=== PATIENT | male | born 1995 | race Caucasian/White ===

== ENCOUNTER 2016-12-22 00:46 | Emergency (ER) | payer MEDICAID ==
[2016-12-22] MEDS ORDERED: PROVENTIL IH ONE ×3 (03:00→03:11)
[2016-12-22] MEDS ORDERED: MAGNESIUM SULFATE 2GM/50ML 2 GM/50 ML BAG IV ONE (03:11)
[2016-12-22] MEDS ORDERED: ATROVENT IH ONE (03:11)
--- NOTE | 2016-12-22 05:15 | Emergency Department Report ---
ED Asthma HPI - General Chief Complaint: Adult Asthma Stated Complaint: ASTHMA Time Seen by Provider: 12/22/16 03:03 Source: patient, EMS Mode of arrival: Stretcher Limitations: No Limitations - History of Present Illness Initial Comments: 21-year-old male with a past medical history of asthma and tuberculosis presents to the hospital complaints of wheezing and shortness of breath 1 week. Symptoms worse with exertion. O2 sat 93% upon arrival. Patient complains of dry cough. Denies fever or pain. No previous history of intubations. - Related Data Previous Rx's Medication Instructions Recorded Last Taken Type ALBUTEROL Inhaler [ProAir HFA 2 puff IH QID PRN #1 inhalation 12/22/16 Unknown Rx Inhaler] ALBUTEROL NEB's [Proventil 0.083% 2.5 mg IH TID PRN #1 box 12/22/16 Unknown Rx NEBS] Prednisone [predniSONE 10 mg 10 mg PO .TAPER #1 tab.ds.pk 12/22/16 Unknown Rx (6-Day Pack, 21 Tabs)] Allergies Allergy/AdvReac Type Severity Reaction Status Date / Time grape Allergy Rash Verified 02/15/15 15:07 pet dander Allergy Rash Uncoded 02/15/15 15:07 pollen Allergy Unknown Uncoded 02/15/15 15:07 shrimp Allergy Rash Uncoded 02/15/15 15:07 ED Review of Systems ROS: Stated complaint: ASTHMA Other details as noted in HPI Comment: All other systems reviewed and negative Other: Constitutional: No fevers chills Eyes: No eye pain visual changes ENT: No ear pain or throat pain Neck: Denies pain Respiratory: as per hpi Cardiovascular: Denies chest pain, palpitations, syncope GI: Denies abdominal pain, nausea, vomiting, diarrhea : Denies dysuria Musculoskeletal: Denies back pain Skin: Denies rash, lesions, erythema Neurologic: Denies headache, numbness, weakness Psychiatric: Denies suicidal ideation, hallucinations ED Past Medical Hx - Past Medical History Previous Medical History?: Yes Hx Psychiatric Treatment: No (Pt denies - no EMR in ED) Hx Asthma: Yes Hx Tuberculosis: Yes Additional medical history: eczema - Surgical History Past Surgical History?: No - Social History Smoking Status: Never Smoker Substance Use Type: None - Medications Home Medications: Home Medications Medication Instructions Recorded Confirmed Last Taken Type ALBUTEROL Inhaler [ProAir HFA 2 puff IH QID PRN #1 inhalation 12/22/16 Unknown Rx Inhaler] ALBUTEROL NEB's [Proventil 0.083% 2.5 mg IH TID PRN #1 box 12/22/16 Unknown Rx NEBS] Prednisone [predniSONE 10 mg 10 mg PO .TAPER #1 tab.ds.pk 12/22/16 Unknown Rx (6-Day Pack, 21 Tabs)] ED Physical Exam - General Limitations: No Limitations - Other Other exam information: General: No limitations, patient is alert in no acute distress Head exam: Atraumatic, normocephalic Eyes exam: Normal appearance ENT: Moist mucous membrane, normal oropharynx Neck exam: Normal inspection, full range of motion, no meningismus nontender Respiratory exam: Significant expiratory wheezing, tachypnea, accessory muscle use Cardiovascular: Tachycardic regular rhythm Abdomen: Soft, nondistended, and nontender, with normal bowel sounds, no rebound, or guarding Extremity: Full range of motion normal inspection no deformity Back: Normal Inspection, full range of motion, no tenderness Neurologic: Alert, oriented x3, cranial nerves intact, no motor or sensory deficit Psychiatric: normal affect, normal mood Skin: Warm, dry, intact ED Course Vital Signs 12/22/16 12/22/16 12/22/16 01:10 01:18 01:27 Temperature Pulse Rate 103 H 122 H Pulse Rate [ Anterior Bilateral] Respiratory 20 29 H 20 Rate Respiratory Rate [Anterior Bilateral] Blood Pressure 124/61 139/82 O2 Sat by Pulse 95 94 Oximetry 12/22/16 12/22/16 12/22/16 03:05 03:08 03:15 Temperature 99.2 F Pulse Rate Pulse Rate [ 122 H 130 H Anterior Bilateral] Respiratory Rate Respiratory 20 18 Rate [Anterior Bilateral] Blood Pressure O2 Sat by Pulse Oximetry 12/22/16 12/22/16 03:17 04:17 Temperature Pulse Rate Pulse Rate [ 126 H 130 H Anterior Bilateral] Respiratory Rate Respiratory 20 20 Rate [Anterior Bilateral] Blood Pressure O2 Sat by Pulse Oximetry - Reevaluation(s) Reevaluation #1: 12/22/16 05:13 Patient reports feeling much better after receiving albuterol 10, Atrovent one, Solu-Medrol 125, and magnesium. He does have some residual expiratory wheezing but states he feels TO go home. Patient ambulated around the ER ED Medical Decision Making - Radiology Data Radiology results: image reviewed (chest x-ray portable: No acute finding) - Medical Decision Making Patient ambulated around the ED and states he feels well enough to go home. Patient continues to have a heart rate in the 120s to 130s range. Pulse ox reads a saturation 94%. Patient still has expiratory wheezing. I tried to encourage patient to receive another treatment and stay longer and possible admission. Patient says that he feels well enough to go home and just needs his prescriptions. I will also put medication for allergies as requested. Patient encouraged to return immediately to the ED if symptoms worsen. Patient does not appear to be in any respiratory distress and did tolerate ambulation while in the ED department. - Differential Diagnosis asthma exacerbation, pneumonia, bronchitis Critical Care Time: No Critical care attestation.: If time is entered above; I have spent that time in minutes in the direct care of this critically ill patient, excluding procedure time. ED Disposition Clinical Impression: Asthma exacerbation Disposition: DISCHARGED TO HOME OR SELFCARE Is pt being admited?: No Condition: Stable Instructions: Asthma (ED) Additional Instructions: Take the medication as prescribed. Follow-up with doctor or clinic provided. Return if symptoms worsen. Prescriptions: ALBUTEROL Inhaler [ProAir HFA Inhaler] 2 puff IH QID PRN #1 inhalation PRN Reason: Shortness Of Breath ALBUTEROL NEB's [Proventil 0.083% NEBS] 2.5 mg IH TID PRN #1 box PRN Reason: Wheezing Prednisone [predniSONE 10 mg (6-Day Pack, 21 Tabs)] 10 mg PO .TAPER #1 tab.ds.pk Referrals: [facility] [Provider Group] - 2-3 Days PRIMARY CAREMD [Primary Care Provider] - 2-3 Days REJI DOWNS MD [Staff Physician] - 2-3 Days Time of Disposition: 05:34
[2016-12-22 05:33] VITALS: BP 139/82
--- NOTE | 2016-12-22 07:54 | XRay Report ---
Single view chest: Compared to 07/16/16. History: Cough and wheeze. Findings: Normal cardiomediastinal silhouette. Trachea is midline. No consolidation, pneumothorax or pleural effusion. Impression: No acute cardiopulmonary findings in the present study. A
== END 2016-12-22 05:58 | disposition home or self-care (01) ==
LOC: ED 00:46
DX: J45.901 Unspecified asthma with (acute) exacerbation (principal)
CPT/HCPCS: 71010; 94640; 94644; 96365; 96375; 99284; J2930; J3475

== ENCOUNTER 2016-12-25 20:22 | Emergency (ER) | payer MEDICAID ==
[2016-12-25] MEDS ORDERED: DUONEB 0.5 MG-3 MG/3 ML SOLN IH ONE ×2 (20:28→20:36)
[2016-12-25] MEDS ORDERED: MAGNESIUM SULFATE 2GM/50ML 2 GM/50 ML BAG IV ONE ×2 (20:30→20:32)
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
[2016-12-25 21:33] LABS: Basophils % (Auto) 0.1 % (0.0-1.8); Eosinophils % (Auto) 5.9 % (0.0-4.3); Hematocrit 46.7 % (35.5-45.6); Hemoglobin 15.7 gm/dl (11.8-15.2); Mean Corpuscular HGB Conc 34 % (32-34); Mean Corpuscular Hemoglobin 29 pg (28-32); Mean Corpuscular Volume 87 fl (84-94); Platelet Count 254 K/mm3 (140-440); Red Blood Count 5.41 M/mm3 (3.65-5.03); Red Cell Distribution Width 13.2 % (13.2-15.2); White Blood Count 11.1 K/mm3 (4.5-11.0)
--- NOTE | 2016-12-25 21:40 | Admit Criteria Form ---
Admission Criteria Documentation: ASTHMA Clinical Indications for Admission to Inpatient Care (Place 'X' for any and all applicable criteria): Admission is indicated for ANY ONE of the following (1)(2)(3)(4)(5): [ ]I. Absent or markedly diminished breath sounds (silent chest) [ ]II. Oxygen saturation < 92% [ ]III. PaCO2 = / > 42 mm Hg (5.6 kPa) [ ]IV. Peak expiratory flow rate < 40% of predicted or personal best after treatment. [ ]V. Peak expiratory flow rate < 33% of predicted or personal before after treatment [ ]. Change in mental status [ ]VII. Ventilatory support required [ ]VIII. PaO2 < 60 mm Hg (8.0 kPa) [ ]IX. Cyanosis [ ]X. Cardiac dysrhythmia (e.g., bradycardia) [ ]XI. Hemodynamic instability [ ]XII. Radiographic evidence of complication requiring inpatient treatment (e.g., pneumonia, pneumothorax) [X ]XIII. Inpatient admission required rather than observation care (also use Asthma: Observation Care guideline as appropriate) because of ANY ONE of the following: [ X]a) Respiratory finding that is severe or persistent (eg, dyspnea, tachypnea, accessory muscle use) [ ]b) Airflow measurements less than 60% of predicted or personal best that persist (e.g., over 24 hours) or worsen despite treatments [ ]c) Supplemental oxygen or respiratory treatments for over 24 hours that are performable only in acute inpatient setting [ ]d) Other condition, treatment or monitoring requiring inpatient admission. Extended stay beyond goal length of stay may be needed for (26)(27)(28): [ ]a) Severe respiratory failure (23) (29) (30) [ ]b) Secondary causes and complications (25) [ ]c) Status asthmaticus [ ]d) Chronic obstructive asthma [ ]e) Older patients (29) [ ]f) Slow resolution [ ]g) Clinically significant exacerbation of comorbidities (eg, ernesto. heart failure, atrial fibrillation) The original [facility] content created by [employer] has been revised. The portions of the content which have been revised are identified through the use of italic text or in bold, and [employer] has neither reviewed nor approved the modified material. All other unmodified content is copyright [employer] Please see references footnoted in the original [facility] edition 2016
[2016-12-25 21:51] LABS: Anion Gap 17 mmol/L; Blood Urea Nitrogen 6 mg/dL (9-20); Calcium 9.1 mg/dL (8.4-10.2); Carbon Dioxide 25 mmol/L (22-30); Chloride 99.3 mmol/L (98-107); Glucose 109 mg/dL (75-100); Magnesium 2.7 mg/dL (1.7-2.3); Potassium 3.8 mmol/L (3.6-5.0); Sodium 137 mmol/L (137-145)
[2016-12-25] MEDS ORDERED: XOPENEX IH ONE (22:24)
[2016-12-25] MEDS ORDERED: NACL 0.9% NEBU ONE (22:31)
[2016-12-26 01:19] LABS: Bilirubin,Urine NEG (Negative); Blood,Urine NEG (Negative); Ketones,Urine TR mg/dL (Negative); Leukocyte Esterase,Urine NEG (Negative); Mucus,Urine FEW /HPF; Nitrite,Urine NEG (Negative); Protein,Urine <15 mg/dL mg/dL (Negative); Urobilinogen,Urine < 2.0 mg/dL (<2.0); WBC,Urine < 1.0 /HPF (0.0-6.0)
[2016-12-26 01:37] VITALS: BP 103/71
--- NOTE | 2016-12-26 07:47 | XRay Report ---
CHEST ONE VIEW INDICATION: Shortness of breath. COMPARISON: 12/22/2016. FINDINGS: Portable, single, frontal chest radiograph demonstrates normal cardiomediastinal silhouette. Clear lungs. Unremarkable bones. Extrinsic EKG leads. CONCLUSION: No acute disease, stable. Thank you for the opportunity to participate in this patient's care.
== END 2016-12-26 01:51 | disposition home or self-care (01) ==
LOC: ED 20:22
DX: J45.901 Unspecified asthma with (acute) exacerbation (principal)
CPT/HCPCS: 36415; 71010; 80048; 81001; 83735; 83880; 84484; 85025; 85379; 87040; 93005; 93010; 94640; 96365; 96375; 99285; J2930; J3475

== ENCOUNTER 2017-02-05 11:00 | Emergency (ER) | payer MEDICAID ==
--- NOTE | 2017-02-05 11:20 | Emergency Department Report ---
ED Asthma HPI - General Chief Complaint: Adult Asthma Stated Complaint: DIFFICULTY BREATHING Time Seen by Provider: 02/05/17 11:18 Source: patient Mode of arrival: Ambulatory Limitations: No Limitations - History of Present Illness MD Complaint: "asthma attack", wheezing -: Gradual Asthma History: childhood onset Severity: moderate Context: recent URI, ran out of meds Associated Symptoms: dry cough Treatments Prior to Arrival: inhaled bronchodilator - Related Data Current Asthma Therapy: inhaled bronchodilator Previous Rx's Medication Instructions Recorded Last Taken Type ALBUTEROL Inhaler [ProAir HFA 1 puff IH QID #1 inha 02/05/17 Unknown Rx Inhaler] Prednisone [predniSONE 10 mg 10 mg PO .TAPER #1 tab.ds.pk 02/05/17 Unknown Rx (6-Day Pack, 21 Tabs)] Allergies Allergy/AdvReac Type Severity Reaction Status Date / Time grape Allergy Rash Verified 12/25/16 20:36 pet dander Allergy Rash Uncoded 12/25/16 20:36 pollen Allergy Unknown Uncoded 12/25/16 20:36 shrimp Allergy Rash Uncoded 12/25/16 20:36 ED Review of Systems ROS: Stated complaint: DIFFICULTY BREATHING Other details as noted in HPI Constitutional: denies: chills, fever Eyes: denies: eye pain, eye discharge, vision change ENT: denies: ear pain, throat pain Respiratory: denies: cough, shortness of breath, wheezing Cardiovascular: denies: chest pain, palpitations Endocrine: no symptoms reported Gastrointestinal: denies: abdominal pain, nausea, diarrhea Genitourinary: denies: urgency, dysuria Musculoskeletal: denies: back pain, joint swelling, arthralgia Skin: denies: rash, lesions Neurological: denies: headache, weakness, paresthesias Psychiatric: denies: anxiety, depression Hematological/Lymphatic: denies: easy bleeding, easy bruising ED Past Medical Hx - Past Medical History Hx Psychiatric Treatment: (Pt denies - no EMR in ED) Hx Asthma: Yes Hx Tuberculosis: Yes Additional medical history: eczema - Social History Smoking Status: Never Smoker Substance Use Type: None - Medications Home Medications: Home Medications Medication Instructions Recorded Confirmed Last Taken Type ALBUTEROL Inhaler [ProAir HFA 1 puff IH QID #1 inha 02/05/17 Unknown Rx Inhaler] Prednisone [predniSONE 10 mg 10 mg PO .TAPER #1 tab.ds.pk 02/05/17 Unknown Rx (6-Day Pack, 21 Tabs)] ED Physical Exam - General Limitations: No Limitations General appearance: alert, in no apparent distress - Head Head exam: Present: atraumatic, normocephalic - Eye Eye exam: Present: normal appearance - ENT ENT exam: Present: mucous membranes moist - Neck Neck exam: Present: normal inspection - Respiratory Respiratory exam: Present: wheezes. Absent: respiratory distress, rales, rhonchi, stridor, chest wall tenderness, accessory muscle use, decreased breath sounds, prolonged expiratory - Cardiovascular Cardiovascular Exam: Present: regular rate, normal rhythm. Absent: systolic murmur, diastolic murmur, rubs, gallop - GI/Abdominal GI/Abdominal exam: Present: soft, normal bowel sounds - Rectal Rectal exam: Present: deferred - Extremities Exam Extremities exam: Present: normal inspection - Back Exam Back exam: Present: normal inspection - Neurological Exam Neurological exam: Present: alert, oriented X3 - Psychiatric Psychiatric exam: Present: normal affect, normal mood - Skin Skin exam: Present: warm, dry, intact, normal color. Absent: rash ED Course Vital Signs 02/05/17 11:13 Respiratory 24 Rate O2 Sat by Pulse 92 Oximetry ED Medical Decision Making - Medical Decision Making patient been doing well , will dc and refill his albuterol and put him on prednisone, no need for admission. Critical care attestation.: If time is entered above; I have spent that time in minutes in the direct care of this critically ill patient, excluding procedure time. ED Disposition Clinical Impression: Asthma Disposition: DISCHARGED TO HOME OR SELFCARE Is pt being admited?: No Does the pt Need Aspirin: No Condition: Good Instructions: Asthma (ED) Prescriptions: ALBUTEROL Inhaler [ProAir HFA Inhaler] 1 puff IH QID #1 inha Prednisone [predniSONE 10 mg (6-Day Pack, 21 Tabs)] 10 mg PO .TAPER #1 tab.ds.pk Forms: Work/School Release Form(ED) Time of Disposition: 11:58
[2017-02-05] MEDS ORDERED: PROVENTIL IH ONE (11:54)
[2017-02-05] MEDS ORDERED: DELTASONE PO ONE (11:54)
[2017-02-05 12:47] VITALS: BP 115/78
== END 2017-02-05 12:47 | disposition home or self-care (01) ==
LOC: ED 11:00
DX: J45.909 Unspecified asthma, uncomplicated (principal); Z86.11 Personal history of tuberculosis
CPT/HCPCS: 94640; 99283; J7512

== ENCOUNTER 2017-08-30 01:09 | Emergency (ER) | payer MEDICAID ==
[2017-08-30] MEDS ORDERED: DELTASONE PO ONE (08:08)
--- NOTE | 2017-08-30 08:22 | Emergency Department Report ---
HPI - General Chief Complaint: Adult Asthma Time Seen by Provider: 08/30/17 07:45 - HPI HPI: Patient is a 22-year-old male with a history of childhood asthma who presents to ED complaining of evident asthma attack last night. Patient states he wasn' t doing anything or any physical activity when he started to get an asthma attack and called the ambulance. Patient states that he was given albuterol treatment in the EMS. Patient states he is out of his albuterol medication and has been out for the past several weeks. Patient denies fever/cough/runny nose/ sick contacts/trauma/shortness of breath/chest pain or any other problems. ED Past Medical Hx - Past Medical History Hx Psychiatric Treatment: (Pt denies - no EMR in ED) Hx Asthma: Yes Hx Tuberculosis: Yes Additional medical history: eczema - Surgical History Past Surgical History?: No - Social History Smoking Status: Never Smoker Substance Use Type: None - Medications Home Medications: Home Medications Medication Instructions Recorded Confirmed Last Taken Type ALBUTEROL Inhaler [ProAir HFA 1 puff IH QID #1 inha 08/30/17 Unknown Rx Inhaler] ALBUTEROL NEB's [Proventil 0.083% 2.5 mg IH PRN PRN #1 pack 08/30/17 Unknown Rx NEBS] Prednisone [predniSONE 10 mg 10 mg PO .TAPER #1 tab.ds.pk 08/30/17 Unknown Rx (6-Day Pack, 21 Tabs)] ED Review of Systems ROS: Stated complaint: CASS Other details as noted in HPI Constitutional: denies: chills, fever Eyes: denies: eye pain, eye discharge, vision change ENT: denies: ear pain, throat pain Respiratory: denies: cough, shortness of breath, wheezing Cardiovascular: denies: chest pain, palpitations Endocrine: no symptoms reported Gastrointestinal: denies: abdominal pain, nausea, vomiting, diarrhea Genitourinary: denies: urgency, dysuria Musculoskeletal: denies: back pain, joint swelling, arthralgia Skin: denies: rash, lesions Neurological: denies: headache, weakness, paresthesias Psychiatric: denies: anxiety, depression Hematological/Lymphatic: denies: easy bleeding, easy bruising Physical Exam - Physical Exam Vital Signs: Vital Signs 08/30/17 03:27 Temperature 98 F Pulse Rate 81 Respiratory 16 Rate Blood Pressure 124/81 O2 Sat by Pulse 100 Oximetry Physical Exam: GENERAL: Alert and oriented x3, no apparent respiratory distress, Normal Gait, atraumatic. There comfortably in ED. HEAD: Head is normocephalic and a-traumatic. EYES: Sclerae clear bilaterally, non-erythematous . Pupils are equal, round, and reactive to light and accommodation. EARS: symetrical, atraumatic, non tender, ear canal clear and moderate cerumen, tympanic membrance non inflamed. gross auditory nml bilaterally. NOSE: Nose symetrical, Nontender,Nares appeared normal. MOUTH:Mouth is well hydrated and without lesions. Tonsils nonerythematous or swollen, Uvula midline, Tongue not elevated. Mucous membranes are moist. Posterior pharynx clear, no exudate or lesions. Patent airways. NECK: Supple. Non edematous, No carotid bruits. No lymphadenopathy or thyromegaly. No C-spine tenderness LUNGS: Symetrical with respiration, No wheezing, no rales or crackles, CTAB. HEART: S1, S2 present, regular rate and rhythm without murmur, no rubs, no gallops. Non tender to palpation SKIN: Warm and dry, No lesions, No ulceration or induration present. ED Course Vital Signs 08/30/17 03:27 Temperature 98 F Pulse Rate 81 Respiratory 16 Rate Blood Pressure 124/81 O2 Sat by Pulse 100 Oximetry ED Medical Decision Making - Medical Decision Making 22-year-old male presents with asthma ED course: Patient was a normal respiratory distress during ED stay. he received prednisone 60 No wheezing on exam. So use of accessory muscles I discussed the patient will refill his medications. This patient to follow up with primary care physician in 3-5 days. I discussed the patient if he has any worsening symptoms or new symptoms to return to ED immediately Patient is in no respiratory distress, vital signs are normal. He is neurologically intact understands all instructions given. Critical care attestation.: If time is entered above; I have spent that time in minutes in the direct care of this critically ill patient, excluding procedure time. ED Disposition Clinical Impression: Asthma Qualifiers: Asthma severity: mild Asthma persistence: intermittent Asthma complication type : with acute exacerbation Qualified Code(s): J45.21 - Mild intermittent asthma with (acute) exacerbation Disposition: TO HOME OR SELFCARE Is pt being admited?: No Does the pt Need Aspirin: No Condition: Stable Instructions: Asthma (ED), Reactive Airways Disease (ED) Additional Instructions: Make sure to follow up with the primary care physician as discussed. Take all your medications as you've been prescribed. If you have any worsening symptoms or develop new symptoms please return to ED immediately. Prescriptions: ALBUTEROL Inhaler [ProAir HFA Inhaler] 1 puff IH QID #1 inha ALBUTEROL NEB's [Proventil 0.083% NEBS] 2.5 mg IH PRN PRN #1 pack PRN Reason: Wheezing Prednisone [predniSONE 10 mg (6-Day Pack, 21 Tabs)] 10 mg PO .TAPER #1 tab.ds.pk Referrals: PRIMARY CARE,MD [Primary Care Provider] - 3-5 Days [facility] [Outside] - 3-5 Days [facility] [place] [Outside] - 3-5 Days Forms: Work/School Release Form(ED) Time of Disposition: 08:28
[2017-08-30 08:25] VITALS: BP 113/72
== END 2017-08-30 08:50 | disposition home or self-care (01) ==
LOC: ED 01:09
DX: J45.21 Mild intermittent asthma with (acute) exacerbation (principal); Z86.11 Personal history of tuberculosis; Z91.013 Allergy to seafood; Z91.018 Allergy to other foods; Z91.09 Other allergy status, other than to drugs and biological substances
CPT/HCPCS: 99283; J7512

== ENCOUNTER 2017-09-23 04:16 | Emergency (ER) | payer MEDICAID ==
[2017-09-23 05:52] VITALS: BP 124/72
[2017-09-23] MEDS ORDERED: PROVENTIL IH ONE ×2 (06:06→06:07)
--- NOTE | 2017-09-23 06:35 | Emergency Department Report ---
ED Asthma HPI - General Chief Complaint: Adult Asthma Stated Complaint: ASTHMA Time Seen by Provider: 09/23/17 06:31 Source: patient, EMS Mode of arrival: Ambulatory Limitations: No Limitations - History of Present Illness Initial Comments: Patient is a 22-year-old male who is presenting with 3 days of increased asthma symptoms MD Complaint: "asthma attack", wheezing -: Gradual Asthma History: childhood onset Severity: mild Context: ran out of meds Associated Symptoms: dry cough. denies: productive cough, fever, chest pain, hemoptysis Treatments Prior to Arrival: inhaled bronchodilator (patient received a breathing treatment via EMS and states that he feels better now) - Related Data Current Asthma Therapy: none Previous Rx's Medication Instructions Recorded Last Taken Type ALBUTEROL Inhaler [ProAir HFA 1 puff IH QID #1 inha 08/30/17 Unknown Rx Inhaler] ALBUTEROL NEB's [Proventil 0.083% 2.5 mg IH PRN PRN #1 pack 08/30/17 Unknown Rx NEBS] Prednisone [predniSONE 10 mg 10 mg PO .TAPER #1 tab.ds.pk 08/30/17 Unknown Rx (6-Day Pack, 21 Tabs)] ALBUTEROL Inhaler [ProAir HFA 2 puff IH QID PRN #1 inhalation 09/23/17 Unknown Rx Inhaler] Allergies Allergy/AdvReac Type Severity Reaction Status Date / Time grape Allergy Rash Verified 12/25/16 20:36 pet dander Allergy Rash Uncoded 12/25/16 20:36 pollen Allergy Unknown Uncoded 12/25/16 20:36 shrimp Allergy Rash Uncoded 12/25/16 20:36 ED Review of Systems ROS: Stated complaint: ASTHMA Other details as noted in HPI Comment: All other systems reviewed and negative ED Past Medical Hx - Past Medical History Previous Medical History?: Yes Hx Psychiatric Treatment: (Pt denies - no EMR in ED) Hx Asthma: Yes Hx Tuberculosis: Yes Additional medical history: eczema - Social History Smoking Status: Never Smoker - Medications Home Medications: Home Medications Medication Instructions Recorded Confirmed Last Taken Type ALBUTEROL Inhaler [ProAir HFA 1 puff IH QID #1 inha 08/30/17 Unknown Rx Inhaler] ALBUTEROL NEB's [Proventil 0.083% 2.5 mg IH PRN PRN #1 pack 08/30/17 Unknown Rx NEBS] Prednisone [predniSONE 10 mg 10 mg PO .TAPER #1 tab.ds.pk 08/30/17 Unknown Rx (6-Day Pack, 21 Tabs)] ALBUTEROL Inhaler [ProAir HFA 2 puff IH QID PRN #1 inhalation 09/23/17 Unknown Rx Inhaler] ED Physical Exam - General Limitations: No Limitations General appearance: alert, in no apparent distress - Head Head exam: Present: atraumatic, normocephalic - Eye Eye exam: Present: normal appearance - ENT ENT exam: Present: mucous membranes moist - Neck Neck exam: Present: normal inspection - Respiratory Respiratory exam: Present: normal lung sounds bilaterally. Absent: respiratory distress - Cardiovascular Cardiovascular Exam: Present: regular rate, normal rhythm. Absent: systolic murmur, diastolic murmur, rubs, gallop - GI/Abdominal GI/Abdominal exam: Present: soft, normal bowel sounds - Rectal Rectal exam: Present: deferred - Extremities Exam Extremities exam: Present: normal inspection - Back Exam Back exam: Present: normal inspection - Neurological Exam Neurological exam: Present: alert, oriented X3 - Psychiatric Psychiatric exam: Present: normal affect, normal mood - Skin Skin exam: Present: warm, dry, intact, normal color. Absent: rash ED Course Vital Signs 09/23/17 05:46 Temperature 98.7 F Pulse Rate 77 Respiratory 20 Rate Blood Pressure 124/72 O2 Sat by Pulse 98 Oximetry ED Medical Decision Making - Medical Decision Making Albuterol inhaler will be refilled the patient will be discharged home Critical care attestation.: If time is entered above; I have spent that time in minutes in the direct care of this critically ill patient, excluding procedure time. ED Disposition Clinical Impression: Asthma Disposition: DC-01 TO HOME OR SELFCARE Is pt being admited?: No Does the pt Need Aspirin: No Condition: Good Instructions: Asthma (ED) Prescriptions: ALBUTEROL Inhaler [ProAir HFA Inhaler] 2 puff IH QID PRN #1 inhalation PRN Reason: Shortness Of Breath
== END 2017-09-23 07:04 | disposition home or self-care (01) ==
LOC: ED 04:16
DX: J45.909 Unspecified asthma, uncomplicated (principal); Z91.013 Allergy to seafood; Z91.048 Other nonmedicinal substance allergy status; Z91.018 Allergy to other foods; Z86.11 Personal history of tuberculosis
CPT/HCPCS: 94640

== ENCOUNTER 2017-10-08 01:34 | Emergency (ER) | payer MEDICAID ==
--- NOTE | 2017-10-08 11:37 | Emergency Department Report ---
ED Recheck HPI - General Chief Complaint: Adult Asthma Stated Complaint: ASTHMA Time Seen by Provider: 10/08/17 11:02 Source: patient Mode of arrival: Stretcher Limitations: No Limitations - History of Present Illness Initial Comments: This is a 22-year-old male nontoxic, well nourished in appearance, no acute signs of distress presents to the ED with c/o of "asthma medication refill". Patient denies any symptoms. Patient stated he ran out of his Proair inhaler and proventil. Patient denies any shortness of breathe, chest pain, wheezing, breathing, cough, rhinorrhea, sore throat, fever, chills, nausea vomiting. Patient stays asymptomatic just needs medication refill. Patient denies any drug allergies. Past medical history includes asthma eczema and cervical os. MD Complaint: medication refill request Returns Today for: request for prescription Symptoms Since Prior Visit: no new symptoms, improved Associated Symptoms: none. denies: fever, chills, chest pain, shortness of breath, rash, malaise, nasuea, abdominal pain - Related Data Previous Rx's Medication Instructions Recorded Last Taken Type ALBUTEROL Inhaler [ProAir HFA 1 puff IH QID #1 inha 08/30/17 Unknown Rx Inhaler] ALBUTEROL NEB's [Proventil 0.083% 2.5 mg IH PRN PRN #1 pack 08/30/17 Unknown Rx NEBS] Prednisone [predniSONE 10 mg 10 mg PO .TAPER #1 tab.ds.pk 08/30/17 Unknown Rx (6-Day Pack, 21 Tabs)] ALBUTEROL Inhaler [ProAir HFA 2 puff IH QID PRN #1 inhalation 09/23/17 Unknown Rx Inhaler] ALBUTEROL Inhaler [ProAir HFA 2 puff IH QID PRN #1 inhalation 10/08/17 Unknown Rx Inhaler] ALBUTEROL NEB's [Proventil 0.083% 2.5 mg IH PRN PRN 30 Days neb 10/08/17 Unknown Rx NEBS] Allergies Allergy/AdvReac Type Severity Reaction Status Date / Time grape Allergy Rash Verified 12/25/16 20:36 pet dander Allergy Rash Uncoded 12/25/16 20:36 pollen Allergy Unknown Uncoded 12/25/16 20:36 shrimp Allergy Rash Uncoded 12/25/16 20:36 ED Review of Systems ROS: Stated complaint: ASTHMA Other details as noted in HPI Constitutional: denies: chills, fever Eyes: denies: eye pain, eye discharge, vision change ENT: denies: ear pain, throat pain Respiratory: denies: cough, shortness of breath, wheezing Cardiovascular: denies: chest pain, palpitations Endocrine: no symptoms reported Gastrointestinal: denies: abdominal pain, nausea, diarrhea Genitourinary: denies: urgency, dysuria Musculoskeletal: denies: back pain, joint swelling, arthralgia Skin: denies: rash, lesions Neurological: denies: headache, weakness, paresthesias Psychiatric: denies: anxiety, depression Hematological/Lymphatic: denies: easy bleeding, easy bruising ED Past Medical Hx - Past Medical History Hx Psychiatric Treatment: (Pt denies - no EMR in ED) Hx Asthma: Yes Hx Tuberculosis: Yes Additional medical history: eczema - Surgical History Past Surgical History?: No - Social History Smoking Status: Never Smoker Substance Use Type: None - Medications Home Medications: Home Medications Medication Instructions Recorded Confirmed Last Taken Type ALBUTEROL Inhaler [ProAir HFA 1 puff IH QID #1 inha 08/30/17 Unknown Rx Inhaler] ALBUTEROL NEB's [Proventil 0.083% 2.5 mg IH PRN PRN #1 pack 08/30/17 Unknown Rx NEBS] Prednisone [predniSONE 10 mg 10 mg PO .TAPER #1 tab.ds.pk 08/30/17 Unknown Rx (6-Day Pack, 21 Tabs)] ALBUTEROL Inhaler [ProAir HFA 2 puff IH QID PRN #1 inhalation 09/23/17 Unknown Rx Inhaler] ALBUTEROL Inhaler [ProAir HFA 2 puff IH QID PRN #1 inhalation 10/08/17 Unknown Rx Inhaler] ALBUTEROL NEB's [Proventil 0.083% 2.5 mg IH PRN PRN 30 Days neb 10/08/17 Unknown Rx NEBS] ED Physical Exam - General Limitations: No Limitations General appearance: alert, in no apparent distress - Head Head exam: Present: atraumatic, normocephalic, normal inspection - Eye Eye exam: Present: normal appearance, PERRL, EOMI. Absent: scleral icterus, conjunctival injection, nystagmus, periorbital swelling, periorbital tenderness Pupils: Present: normal accommodation - ENT ENT exam: Present: normal exam, normal orophraynx, mucous membranes moist, TM's normal bilaterally, normal external ear exam - Neck Neck exam: Present: normal inspection, full ROM. Absent: tenderness, meningismus, lymphadenopathy, thyromegaly - Respiratory Respiratory exam: Present: normal lung sounds bilaterally. Absent: respiratory distress, wheezes, rales, rhonchi, stridor, chest wall tenderness, accessory muscle use, decreased breath sounds, prolonged expiratory - Cardiovascular Cardiovascular Exam: Present: regular rate, normal rhythm, normal heart sounds. Absent: irregular rhythm, systolic murmur, diastolic murmur, rubs, gallop - GI/Abdominal GI/Abdominal exam: Present: soft, normal bowel sounds - Rectal Rectal exam: Present: deferred - Extremities Exam Extremities exam: Present: normal inspection - Back Exam Back exam: Present: normal inspection - Neurological Exam Neurological exam: Present: alert, oriented X3 - Psychiatric Psychiatric exam: Present: normal affect, normal mood - Skin Skin exam: Present: warm, dry, intact, normal color. Absent: rash ED Course Vital Signs 10/08/17 10/08/17 01:51 10:44 Temperature 98 F Pulse Rate 85 75 Respiratory 16 16 Rate Blood Pressure 127/74 Blood Pressure 124/80 [Right] O2 Sat by Pulse 100 99 Oximetry - Reevaluation(s) Reevaluation #1: 10/08/17 11:38 Patient is speaking in full sentences with no signs of distress noted. Critical care attestation.: If time is entered above; I have spent that time in minutes in the direct care of this critically ill patient, excluding procedure time. ED Disposition Clinical Impression: Medication refill Asthma Qualifiers: Asthma severity: mild Asthma persistence: unspecified Asthma complication type : unspecified Qualified Code(s): J45.998 - Other asthma Disposition: -01 TO HOME OR SELFCARE Is pt being admited?: No Does the pt Need Aspirin: No Condition: Stable Instructions: Asthma (ED) Additional Instructions: Follow-up with a primary care doctor in 3-5 days or if symptoms worsen and continue return to emergency room as soon as possible. Prescriptions: ALBUTEROL Inhaler [ProAir HFA Inhaler] 2 puff IH QID PRN #1 inhalation PRN Reason: Shortness Of Breath ALBUTEROL NEB's [Proventil 0.083% NEBS] 2.5 mg IH PRN PRN 30 Days neb PRN Reason: Wheezing Referrals: BRETT CORNELIUS MD [Primary Care Provider] - 3-5 Days EUNICE SANCHEZ MD [Staff Physician] - 3-5 Days PRIMARY CARE, [Referring] - 3-5 Days [facility] [place] [Outside] - 3-5 Days [facility] [Outside] - 3-5 Days
[2017-10-08 13:01] VITALS: BP 120/70
== END 2017-10-08 13:00 | disposition home or self-care (01) ==
LOC: ED 01:34
DX: J45.998 Other asthma (principal); Z91.013 Allergy to seafood; Z91.018 Allergy to other foods; Z86.11 Personal history of tuberculosis; Z88.8 Allergy status to other drugs, medicaments and biological substances
CPT/HCPCS: 99283

== ENCOUNTER 2017-11-24 20:03 | Emergency (ER) | payer MEDICAID ==
[2017-11-24 20:08] VITALS: BP 118/78
--- NOTE | 2017-11-24 20:44 | Emergency Department Report ---
Blank Doc - Documentation Documentation: 22-year-old male states right knee pain after twisting the knee and falling today. Stated he heard a crack in his the area. Has been able to ambulate since the injury. No swelling, no redness, Exam showed mild tenderness medial knee.
--- NOTE | 2017-11-24 21:23 | Emergency Department Report ---
HPI - General Chief Complaint: Extremity Injury, Lower - HPI HPI: 22-year-old male states right knee pain after twisting the knee and falling today. Stated he heard a crack in his the area. Has been able to ambulate since the injury. No swelling, no redness, ED Past Medical Hx - Past Medical History Hx Hypertension: No Hx CVA: No Hx Psychiatric Treatment: (Pt denies - no EMR in ED) Hx Asthma: Yes Hx Tuberculosis: Yes Additional medical history: eczema - Social History Smoking Status: Never Smoker Substance Use Type: None - Medications Home Medications: Home Medications Medication Instructions Recorded Confirmed Last Taken Type ALBUTEROL Inhaler [ProAir HFA 1 puff IH QID #1 inha 08/30/17 Unknown Rx Inhaler] ALBUTEROL NEB's [Proventil 0.083% 2.5 mg IH PRN PRN #1 pack 08/30/17 Unknown Rx NEBS] Prednisone [predniSONE 10 mg 10 mg PO .TAPER #1 tab.ds.pk 08/30/17 Unknown Rx (6-Day Pack, 21 Tabs)] ALBUTEROL Inhaler [ProAir HFA 2 puff IH QID PRN #1 inhalation 09/23/17 Unknown Rx Inhaler] ALBUTEROL Inhaler [ProAir HFA 2 puff IH QID PRN #1 inhalation 10/08/17 Unknown Rx Inhaler] ALBUTEROL NEB's [Proventil 0.083% 2.5 mg IH PRN PRN 30 Days neb 10/08/17 Unknown Rx NEBS] Ibuprofen [Motrin] 800 mg PO Q8HR PRN #20 tablet 11/24/17 Unknown Rx ED Review of Systems ROS: Stated complaint: RIGHT KNEE PAIN Other details as noted in HPI Comment: All other systems reviewed and negative Genitourinary: as per HPI Musculoskeletal: joint swelling, other (knee pain) Neurological: denies: numbness, paresthesias Physical Exam - Physical Exam Vital Signs: Vital Signs 11/24/17 20:05 Temperature 98 F Pulse Rate 86 Respiratory 18 Rate Blood Pressure 118/78 O2 Sat by Pulse 100 Oximetry Physical Exam: - Physical Exam Physical Exam: - General Limitations: No Limitations General appearance: alert, in no apparent distress, obese - Head Head exam: Present: atraumatic, normocephalic - Eye Eye exam: Present: normal appearance - ENT ENT exam: Present: mucous membranes moist - Neck Neck exam: Present: normal inspection - Respiratory Respiratory exam: Present: normal lung sounds bilaterally. Absent: respiratory distress - Cardiovascular Cardiovascular Exam: Present: normal rhythm, tachycardia. Absent: systolic murmur, diastolic murmur, rubs, gallop - GI/Abdominal GI/Abdominal exam: Present: soft, normal bowel sounds - Extremities Exam Extremities exam: Present: Right knee tenderness to palpation, mild swelling - Back Exam Back exam: Present: normal inspection - Neurological Exam Neurological exam: Present: alert, oriented X3 - Psychiatric Psychiatric exam: normal affect and mood - Skin Skin exam: Present: warm, dry, intact, normal color. Absent: rash ED Course Vital Signs 11/24/17 20:05 Temperature 98 F Pulse Rate 86 Respiratory 18 Rate Blood Pressure 118/78 O2 Sat by Pulse 100 Oximetry Critical care attestation.: If time is entered above; I have spent that time in minutes in the direct care of this critically ill patient, excluding procedure time. ED Disposition Clinical Impression: Right knee sprain Qualifiers: Encounter type: initial encounter Involved ligament of knee: other ligament Qualified Code(s): S83.8X1A - Sprain of other specified parts of right knee, initial encounter Disposition: DC-01 TO HOME OR SELFCARE Is pt being admited?: No Does the pt Need Aspirin: No Condition: Stable Instructions: Knee Sprain (ED) Prescriptions: Ibuprofen [Motrin] 800 mg PO Q8HR PRN #20 tablet PRN Reason: Pain Referrals: ANTON LOPEZ MD [Staff Physician] - 3-5 Days
--- NOTE | 2017-11-24 22:03 | XRay Report ---
FINAL REPORT EXAM: XR KNEE 3V RT HISTORY: RT KNEE PAIN TECHNIQUE: AP, oblique, and lateral views of the right knee PRIORS: None. FINDINGS: No acute fracture or dislocation is seen. The soft tissues are unremarkable with no evidence for suprapatellar joint effusion. Joint spaces are maintained and bony mineralization is normal. IMPRESSION: Negative views of the right knee.
== END 2017-11-24 21:27 | disposition home or self-care (01) ==
LOC: ED 20:03
DX: S83.8X1A Sprain of other specified parts of right knee, initial encounter (principal); W18.30XA Fall on same level, unspecified, initial encounter; Y93.89 Activity, other specified; Y92.89 Other specified places as the place of occurrence of the external cause; Y99.8 Other external cause status
CPT/HCPCS: 99283

== ENCOUNTER 2017-12-24 03:56 | Emergency (ER) | payer MEDICAID ==
[2017-12-24] MEDS ORDERED: PROVENTIL IH ONE (04:25)
[2017-12-24] MEDS ORDERED: DELTASONE PO ONE (05:04)
[2017-12-24 05:08] VITALS: BP 118/76
[2017-12-24] MEDS ORDERED: DUONEB *Not for PRN Use IH ONE ×2 (07:39→07:40)
--- NOTE | 2017-12-24 07:44 | Emergency Department Report ---
ED Asthma HPI - General Chief Complaint: Adult Asthma Stated Complaint: CASS Time Seen by Provider: 12/24/17 07:39 Source: patient Mode of arrival: Stretcher Limitations: No Limitations - History of Present Illness Initial Comments: 22-year-old male comes in reporting he ran out of his asthma medicine and he has been having difficulty breathing since about 3 AM. Patient denies any cough and denies any fever chills no nausea no vomiting no URI symptoms. Patient has a history of asthma. It appears the patient has been on Proventil in the past. Patient has no known drug allergies multiple food and dander allergies. Onset/Timin -: hour(s) Time: 03:00 Asthma History: history of prior ED visit Severity: moderate Context: ran out of meds Associated Symptoms: none. denies: productive cough, dry cough, fever, chest pain - Related Data Current Asthma Therapy: inhaled bronchodilator Previous Rx's Medication Instructions Recorded Last Taken Type ALBUTEROL Inhaler [ProAir HFA 1 puff IH QID #1 inha 08/30/17 Unknown Rx Inhaler] ALBUTEROL NEB's [Proventil 0.083% 2.5 mg IH PRN PRN #1 pack 08/30/17 Unknown Rx NEBS] ALBUTEROL Inhaler [ProAir HFA 2 puff IH QID PRN #1 inhalation 09/23/17 Unknown Rx Inhaler] ALBUTEROL NEB's [Proventil 0.083% 2.5 mg IH PRN PRN 30 Days neb 10/08/17 Unknown Rx NEBS] Ibuprofen [Motrin] 800 mg PO Q8HR PRN #20 tablet 11/24/17 Unknown Rx ALBUTEROL Inhaler [ProAir HFA 2 puff IH QID PRN #1 inhalation 12/24/17 Unknown Rx Inhaler] Prednisone [predniSONE 10 mg 10 mg PO .TAPER #1 tab.ds.pk 12/24/17 Unknown Rx (6-Day Pack, 21 Tabs)] Allergies Allergy/AdvReac Type Severity Reaction Status Date / Time grape Allergy Rash Verified 12/25/16 20:36 pet dander Allergy Rash Uncoded 12/25/16 20:36 pollen Allergy Unknown Uncoded 12/25/16 20:36 shrimp Allergy Rash Uncoded 12/25/16 20:36 ED Review of Systems ROS: Stated complaint: CASS Other details as noted in HPI Constitutional: denies: chills, fever Eyes: denies: eye pain, eye discharge, vision change ENT: denies: ear pain, throat pain Respiratory: shortness of breath. denies: cough Cardiovascular: denies: chest pain, palpitations Endocrine: no symptoms reported Gastrointestinal: denies: abdominal pain, nausea, diarrhea Genitourinary: denies: urgency, dysuria Musculoskeletal: denies: back pain, joint swelling, arthralgia Skin: denies: rash, lesions Neurological: denies: headache, weakness, paresthesias Psychiatric: denies: anxiety, depression Hematological/Lymphatic: denies: easy bleeding, easy bruising ED Past Medical Hx - Past Medical History Hx Hypertension: No Hx CVA: No Hx Psychiatric Treatment: (Pt denies - no EMR in ED) Hx Asthma: Yes Hx Tuberculosis: Yes Additional medical history: eczema - Social History Smoking Status: Never Smoker Substance Use Type: None - Medications Home Medications: Home Medications Medication Instructions Recorded Confirmed Last Taken Type ALBUTEROL Inhaler [ProAir HFA 1 puff IH QID #1 inha 08/30/17 Unknown Rx Inhaler] ALBUTEROL NEB's [Proventil 0.083% 2.5 mg IH PRN PRN #1 pack 08/30/17 Unknown Rx NEBS] ALBUTEROL Inhaler [ProAir HFA 2 puff IH QID PRN #1 inhalation 09/23/17 Unknown Rx Inhaler] ALBUTEROL NEB's [Proventil 0.083% 2.5 mg IH PRN PRN 30 Days neb 10/08/17 Unknown Rx NEBS] Ibuprofen [Motrin] 800 mg PO Q8HR PRN #20 tablet 11/24/17 Unknown Rx ALBUTEROL Inhaler [ProAir HFA 2 puff IH QID PRN #1 inhalation 12/24/17 Unknown Rx Inhaler] Prednisone [predniSONE 10 mg 10 mg PO .TAPER #1 tab.ds.pk 12/24/17 Unknown Rx (6-Day Pack, 21 Tabs)] ED Physical Exam - General Limitations: No Limitations General appearance: alert, in no apparent distress - Head Head exam: Present: atraumatic, normocephalic - Eye Eye exam: Present: normal appearance - ENT ENT exam: Present: mucous membranes moist - Neck Neck exam: Present: normal inspection - Respiratory Respiratory exam: Present: wheezes - Cardiovascular Cardiovascular Exam: Present: regular rate, normal rhythm. Absent: systolic murmur, diastolic murmur, rubs, gallop - GI/Abdominal GI/Abdominal exam: Present: soft, normal bowel sounds - Rectal Rectal exam: Present: deferred - Extremities Exam Extremities exam: Present: normal inspection - Back Exam Back exam: Present: normal inspection - Neurological Exam Neurological exam: Present: alert, oriented X3 - Psychiatric Psychiatric exam: Present: normal affect, normal mood - Skin Skin exam: Present: warm, dry, intact, normal color. Absent: rash ED Course Vital Signs 12/24/17 12/24/17 04:17 05:07 Temperature 97.9 F Pulse Rate 99 H 89 Respiratory 18 20 Rate Blood Pressure 123/74 Blood Pressure 118/76 [Left] O2 Sat by Pulse 96 99 Oximetry - Reevaluation(s) Reevaluation #1: 12/24/17 07:43 Patient reports he feels much better after having the prednisone in the nebulizer treatment that was started in triage. ED Medical Decision Making - Medical Decision Making Patient has been evaluated by this provider fast track. Patient is a known asthmatic. Does have some wheezing still after having a nebulizer treatment in triage. Discussed the patient we'll give him another treatment of a dual neb. This patient has no fever no cough he will not do chest x-ray at this time. We will discharge patient with a refill on his albuterol inhaler and a prescription for Medrol Dosepak. Patient verbalized understanding. Critical care attestation.: If time is entered above; I have spent that time in minutes in the direct care of this critically ill patient, excluding procedure time. ED Disposition Clinical Impression: Asthma Qualifiers: Asthma severity: mild Asthma persistence: unspecified Asthma complication type : unspecified Qualified Code(s): J45.998 - Other asthma Disposition: -01 TO HOME OR SELFCARE Is pt being admited?: No Does the pt Need Aspirin: No Condition: Stable Instructions: Asthma (ED) Additional Instructions: Use albuterol inhaler as prescribed. Follow up with her primary care provider if symptoms persist or gets worse. Prescriptions: ALBUTEROL Inhaler [ProAir HFA Inhaler] 2 puff IH QID PRN #1 inhalation PRN Reason: Shortness Of Breath Prednisone [predniSONE 10 mg (6-Day Pack, 21 Tabs)] 10 mg PO .TAPER #1 tab.ds.pk Referrals: BRETT CORNELIUS MD [Primary Care Provider] - 3-5 Days [facility] [Provider Group] - 3-5 Days Forms: Work/School Release Form(ED)
== END 2017-12-24 07:50 | disposition home or self-care (01) ==
LOC: ED 03:56
DX: J45.998 Other asthma (principal); Z86.11 Personal history of tuberculosis; Z91.018 Allergy to other foods; Z91.013 Allergy to seafood; Z91.09 Other allergy status, other than to drugs and biological substances
CPT/HCPCS: 94640; 99283; J7512

== ENCOUNTER 2018-01-03 07:36 | Emergency (ER) | payer MEDICAID ==
--- NOTE | 2018-01-03 08:03 | XRay Report ---
CHEST 2 VIEWS INDICATION: Shortness of breath. COMPARISON: 12/25/2016. FINDINGS: PA and lateral chest radiographs demonstrate normal cardiomediastinal silhouette. Clear lungs. Intact bones. CONCLUSION: No acute disease in the chest, stable. Thank you for the opportunity to participate in this patient's care.
--- NOTE | 2018-01-03 08:09 | Emergency Department Report ---
ED Shortness of Breath HPI - General Chief Complaint: Dyspnea/Respdistress Stated Complaint: CASS Time Seen by Provider: 01/03/18 07:49 Source: patient Mode of arrival: Stretcher Limitations: No Limitations - History of Present Illness Initial Comments: Patient is 22-year-old male that presents to emergency room for a syncopal episode secondary to an asthma attack. Patient brought via EMS. Patient states that per bystanders he was unconscious for approximately 30 minutes and was woken up with aggressive sternal rub and albuterol nebs by family. Patient states he felt short of breath and had difficulty breathing just prior to passing out. Patient states that he has had a cough recently and a possible URI. Patient states he is feeling better at this time but still feels a little tightness in his chest. Patient denies fever and chills. Patient denies diaphoresis. MD Complaint: shortness of breath, cough, chest pain, pain with inspiration -: Sudden Consistency: constant Improves With: oxygen, rest, bronchodilators, upright position Worsens With: lying flat Known History Of: asthma Context: recent URI Associated Symptoms: chest pain, pain with inspiration, cough, sputum production , syncope Treatments Prior to Arrival: oxygen, bronchodilator, other (site Medrol 125mg iv ) - Related Data Home Oxygen Therapy: No Previous Rx's Medication Instructions Recorded Last Taken Type ALBUTEROL Inhaler [ProAir HFA 1 puff IH QID #1 inha 08/30/17 Unknown Rx Inhaler] ALBUTEROL NEB's [Proventil 0.083% 2.5 mg IH PRN PRN #1 pack 08/30/17 Unknown Rx NEBS] ALBUTEROL NEB's [Proventil 0.083% 2.5 mg IH PRN PRN 30 Days neb 10/08/17 Unknown Rx NEBS] Ibuprofen [Motrin] 800 mg PO Q8HR PRN #20 tablet 11/24/17 Unknown Rx ALBUTEROL Inhaler [ProAir HFA 2 puff IH QID PRN #1 inhalation 12/24/17 Unknown Rx Inhaler] Prednisone [predniSONE 10 mg 10 mg PO .TAPER #1 tab.ds.pk 12/24/17 Unknown Rx (6-Day Pack, 21 Tabs)] ALBUTEROL Inhaler [ProAir HFA 2 puff IH QID PRN #1 inhalation 01/03/18 Unknown Rx Inhaler] Allergies Allergy/AdvReac Type Severity Reaction Status Date / Time grape Allergy Rash Verified 12/25/16 20:36 pet dander Allergy Rash Uncoded 12/25/16 20:36 pollen Allergy Unknown Uncoded 12/25/16 20:36 shrimp Allergy Rash Uncoded 12/25/16 20:36 ED Review of Systems ROS: Stated complaint: CASS Other details as noted in HPI Comment: All other systems reviewed and negative Constitutional: denies: chills, fever Eyes: denies: eye pain, eye discharge, vision change ENT: denies: ear pain, throat pain Respiratory: cough, shortness of breath, wheezing Cardiovascular: chest pain, palpitations, syncope Endocrine: no symptoms reported Gastrointestinal: denies: abdominal pain, nausea, diarrhea Genitourinary: denies: urgency, dysuria Musculoskeletal: denies: back pain, joint swelling, arthralgia Skin: denies: rash, lesions Neurological: denies: headache, weakness, paresthesias Psychiatric: denies: anxiety, depression Hematological/Lymphatic: denies: easy bleeding, easy bruising ED Past Medical Hx - Past Medical History Previous Medical History?: Yes Hx Hypertension: No Hx CVA: No Hx Psychiatric Treatment: (Pt denies - no EMR in ED) Hx Asthma: Yes Hx Tuberculosis: Yes Additional medical history: eczema - Surgical History Past Surgical History?: No - Family History Family history: hypertension - Social History Smoking Status: Never Smoker Substance Use Type: None - Medications Home Medications: Home Medications Medication Instructions Recorded Confirmed Last Taken Type ALBUTEROL Inhaler [ProAir HFA 1 puff IH QID #1 inha 08/30/17 Unknown Rx Inhaler] ALBUTEROL NEB's [Proventil 0.083% 2.5 mg IH PRN PRN #1 pack 08/30/17 Unknown Rx NEBS] ALBUTEROL NEB's [Proventil 0.083% 2.5 mg IH PRN PRN 30 Days neb 10/08/17 Unknown Rx NEBS] Ibuprofen [Motrin] 800 mg PO Q8HR PRN #20 tablet 11/24/17 Unknown Rx ALBUTEROL Inhaler [ProAir HFA 2 puff IH QID PRN #1 inhalation 12/24/17 Unknown Rx Inhaler] Prednisone [predniSONE 10 mg 10 mg PO .TAPER #1 tab.ds.pk 12/24/17 Unknown Rx (6-Day Pack, 21 Tabs)] ALBUTEROL Inhaler [ProAir HFA 2 puff IH QID PRN #1 inhalation 01/03/18 Unknown Rx Inhaler] ED Physical Exam - General Limitations: No Limitations General appearance: alert, in no apparent distress - Head Head exam: Present: atraumatic, normocephalic - Eye Eye exam: Present: normal appearance - ENT ENT exam: Present: mucous membranes moist - Neck Neck exam: Present: normal inspection - Respiratory Respiratory exam: Present: normal lung sounds bilaterally. Absent: respiratory distress - Cardiovascular Cardiovascular Exam: Present: regular rate, normal rhythm. Absent: systolic murmur, diastolic murmur, rubs, gallop - GI/Abdominal GI/Abdominal exam: Present: soft, normal bowel sounds - Rectal Rectal exam: Present: deferred - Extremities Exam Extremities exam: Present: normal inspection - Back Exam Back exam: Present: normal inspection - Neurological Exam Neurological exam: Present: alert, oriented X3 - Psychiatric Psychiatric exam: Present: normal affect, normal mood - Skin Skin exam: Present: warm, dry, intact, normal color. Absent: rash ED Course Vital Signs 01/03/18 01/03/18 01/03/18 07:40 08:18 10:30 Temperature 98.7 F 98.7 F Pulse Rate 111 H 105 H 90 Pulse Rate [ Anterior Bilateral Throughout] Respiratory 17 17 13 Rate Respiratory Rate [Anterior Bilateral Throughout] Blood Pressure 142/82 Blood Pressure 138/83 101/49 [Right] O2 Sat by Pulse 99 100 93 Oximetry 01/03/18 01/03/18 01/03/18 10:46 11:06 11:30 Temperature Pulse Rate 111 H Pulse Rate [ 105 H 94 H Anterior Bilateral Throughout] Respiratory 14 Rate Respiratory 18 18 Rate [Anterior Bilateral Throughout] Blood Pressure Blood Pressure 127/78 [Right] O2 Sat by Pulse Oximetry - Reevaluation(s) Reevaluation #1: Patient have respiratory distress and hypoxia as well as wheezing. Will treat accordingly. 01/03/18 10:39 01/03/18 10:42 Reevaluation #2: Lung sounds clear to auscultation. Patient appears to be in no acute distress. Discussed with patient plan of care to admit patient to hospital for observation. Patient states he does not want to be admitted and patient signed out AMA. Rest discussed with patient. Patient voiced understanding of risks of leaving AGAINST MEDICAL ADVICE. Patient no acute distress and A& O 4 01/03/18 12:20 Reevaluation #3: Discussed risk of patient leaving AMA from hospital. Patient voiced understanding. Patient asked for refill of his asthma inhaler albuterol. Even though patient is leaving AGAINST MEDICAL ADVICE, I will give patient a prescription for his albuterol. Patient also given strict ER precautions. 01/03/18 12:30 ED Medical Decision Making - Lab Data Result diagrams: 01/03/18 07:52 01/03/18 08:10 - EKG Data EKG shows normal: sinus rhythm, axis, intervals, QRS complexes, ST-T waves Rate: normal - EKG Data Interpretation: no acute changes - Radiology Data Radiology results: report reviewed No acute findings on chest x-ray - Medical Decision Making She is 22-year-old male that presents emergency room with a subsequent episode secondary to asthma attack. Patient signed out AMA Critical Care Time: Yes Critical care attestation.: If time is entered above; I have spent that time in minutes in the direct care of this critically ill patient, excluding procedure time. Critical Care Time: 35 minutes spent for critical care time ED Disposition Clinical Impression: Asthma, Hypoxia, Asthma attack, Syncopal episodes Disposition: DC-07 LEFT AGAINST MED ADVICE Is pt being admited?: No Does the pt Need Aspirin: No Condition: Stable Instructions: Asthma (ED), Syncope (ED) Additional Instructions: Patient follow up with primary care in an one to 2 days. Patient to follow up with kiln furniture saw tender in 3-5 days. Patient to return to ER if condition worsens. Patient take aspirin medications as directed Prescriptions: ALBUTEROL Inhaler [ProAir HFA Inhaler] 2 puff IH QID PRN #1 inhalation PRN Reason: Shortness Of Breath Time of Disposition: 12:23
[2018-01-03 08:11] LABS: Basophils % (Auto) 0.2 % (0.0-1.8); Eosinophils # (Auto) 0.7 K/mm3 (0.0-0.4); Eosinophils % (Auto) 5.8 % (0.0-4.3); Hematocrit 48.9 % (35.5-45.6); Hemoglobin 16.4 gm/dl (11.8-15.2); Lymphocytes # (Auto) 1.6 K/mm3 (1.2-5.4); Lymphocytes % (Auto) 12.2 % (13.4-35.0); Mean Corpuscular HGB Conc 34 % (32-34); Mean Corpuscular Hemoglobin 30 pg (28-32); Mean Corpuscular Volume 89 fl (84-94); Monocytes # (Auto) 0.8 K/mm3 (0.0-0.8); Platelet Count 302 K/mm3 (140-440); Red Blood Count 5.47 M/mm3 (3.65-5.03); Red Cell Distribution Width 13.4 % (13.2-15.2)
[2018-01-03 08:32] LABS: BUN/Creatinine Ratio 20; Blood Urea Nitrogen 14 mg/dL (9-20); Calcium 9.5 mg/dL (8.4-10.2); Hemolysis Index 13
[2018-01-03 08:34] LABS: Alanine Aminotransferase 24 units/L (7-56); Albumin 4.6 g/dL (3.9-5); BUN/Creatinine Ratio 20; Blood Urea Nitrogen 14 mg/dL (9-20); Calcium 9.9 mg/dL (8.4-10.2); Hemolysis Index 27
--- NOTE | 2018-01-03 08:36 | Cat Scan Report ---
CT HEAD WITHOUT CONTRAST INDICATION: Syncope. COMPARISON: None similar. FINDINGS: Noncontrast head CT demonstrates normal ventricles and sulci without acute or recent infarct, hemorrhage, mass effect or midline shift. No abnormal extra-axial fluid collections. Posterior fossa structures and basilar cisterns appear within normal limits. Symmetric imaged eye globes. Mild bilateral ethmoid and maxillary sinusitis. Clear remainder paranasal sinuses and mastoid air cells. Intact calvarium. Normal overlying scalp soft tissues. Few radiopaque dental material incidentally noted. CONCLUSION: No acute intracranial CT abnormality, as described. Thank you for the opportunity to participate in this patient's care.
[2018-01-03 09:15] LABS: Amphetamine Screen,Urine PRESUMPTIVE NEGATIVE; Benzodiazepines Screen,Urine PRESUMPTIVE NEGATIVE; Cannabinoid Screen,Urine PRESUMPTIVE NEGATIVE; Cocaine Screen,Urine PRESUMPTIVE NEGATIVE; Methadone Screen,Urine PRESUMPTIVE NEGATIVE; Opiate Screen,Urine PRESUMPTIVE NEGATIVE
[2018-01-03] MEDS ORDERED: DUONEB *Not for PRN Use IH ONE (10:39)
[2018-01-03] MEDS ORDERED: MAGNESIUM SULFATE 2GM/50ML 2 GM/50 ML BAG IV ONE (10:41)
[2018-01-03] MEDS ORDERED: ROCEPHIN/NS 1 GM/50 ML 1 GM/50 ML BAG IV ONE (11:00)
[2018-01-03] MEDS ORDERED: cefTRIAXone 1 GM in NACL 0.9% 20 ML IV ONE (11:00)
[2018-01-03 12:01] VITALS: BP 127/78
== END 2018-01-03 13:39 | disposition left against medical advice (07) ==
LOC: ED 07:36
DX: J45.909 Unspecified asthma, uncomplicated (principal); R09.02 Hypoxemia; R55 Syncope and collapse
CPT/HCPCS: 36415; 70450; 71046; 80048; 80053; 80307; 82550; 82553; 84484; 85025; 85379; 93005; 93010; 94640; 96365; 96375; 99285; J0696; J3475

== ENCOUNTER 2018-04-28 02:29 | Emergency (ER) | payer MEDICAID ==
[2018-04-28 05:50] VITALS: BP 116/76
--- NOTE | 2018-04-28 07:39 | Emergency Department Report ---
ED Back Pain/Injury HPI - General Chief Complaint: Back Pain/Injury Stated Complaint: BACK PAIN Time Seen by Provider: 04/28/18 07:06 Source: patient Mode of arrival: Ambulatory Limitations: No Limitations - History of Present Illness Initial Comments: This is a 23-year-old male who presents with mid back pain from a football related injuries yesterday. Patient states he was playing football with some friends yesterday around 1300 and got Ground and heard a pop when he hit the ground. Patient states shortly afterwards he started having some pain with movement. Patient reports pain is improved while supine. Patient reports pain as 5 out of 10 on pain scale and achy. Patient states he gets one Tylenol and pain did not improve. Patient denies loss of consciousness, numbness or tingling, chest pain, shortness of breath, deformity, and bruising. MD Complaint: back pain (mid-back pain) Onset/Timin -: days(s) Time: 13:00 Similar Symptoms Previously: No Place: street Radiation: none Severity: moderate Severity scale (0 -10): 5 Quality: aching Consistency: intermittent Improves With: none Worsens With: movement Associated Symptoms: denies: confusion, weakness, chest pain, numbness, difficulty walking, cough, difficulty urinating, diaphoresis, incontinence, fever/chills, constipation, headaches, abdominal pain, loss of appetite, malaise , nausea/vomiting, rash, seizure, shortness of breath, syncope Treatments Prior to Arrival: NSAIDS - Related Data Previous Rx's Medication Instructions Recorded Last Taken Type ALBUTEROL NEB's [Proventil 0.083% 2.5 mg IH PRN PRN #1 pack 08/30/17 Unknown Rx NEBS] ALBUTEROL NEB's [Proventil 0.083% 2.5 mg IH PRN PRN 30 Days neb 10/08/17 Unknown Rx NEBS] Ibuprofen [Motrin 800 MG tab] 800 mg PO Q8HR PRN #20 tablet 11/24/17 Unknown Rx ALBUTEROL Inhaler [ProAir HFA 2 puff IH QID PRN #1 inhalation 12/24/17 Unknown Rx Inhaler] ALBUTEROL Inhaler [ProAir HFA 2 puff IH QID PRN #1 inhalation 01/03/18 Unknown Rx Inhaler] ALBUTEROL Inhaler [ProAir HFA 2 puff IH QID PRN #1 pump 01/06/18 Unknown Rx Inhaler] Prednisone [predniSONE 5 mg (6-Day 5 mg PO .TAPER #1 tab.ds.pk 01/06/18 Unknown Rx Pack, 21 Tabs)] Cyclobenzaprine HCl [Flexeril 5 MG 5 mg PO TID PRN #15 tab 04/28/18 Unknown Rx TAB] Ibuprofen [Motrin 800 MG tab] 800 mg PO Q8HR PRN #15 tablet 04/28/18 Unknown Rx Allergies Allergy/AdvReac Type Severity Reaction Status Date / Time grape Allergy Rash Verified 12/25/16 20:36 pet dander Allergy Rash Uncoded 12/25/16 20:36 pollen Allergy Unknown Uncoded 12/25/16 20:36 shrimp Allergy Rash Uncoded 12/25/16 20:36 ED Review of Systems ROS: Stated complaint: BACK PAIN Other details as noted in HPI Constitutional: denies: chills, fever Respiratory: denies: cough, shortness of breath, wheezing Cardiovascular: denies: chest pain, palpitations Gastrointestinal: denies: abdominal pain, nausea, diarrhea Musculoskeletal: back pain (mid back pain). denies: joint swelling, arthralgia Skin: denies: rash, lesions Neurological: denies: headache, weakness, paresthesias Psychiatric: denies: anxiety, depression ED Past Medical Hx - Past Medical History eczema Family history: no significant family history ED Back Pain Physical Exam - Exam General: Vital signs noted. No distress. Alert and acting appropriately. Back/Abdomen: Yes Perilumbar Tenderness, No Abdominal Tenderness, No Perithoracic Tenderness, No Sacroiliac Tenderness, No Flank Tenderness, No Straight Leg Raise Pain Neuro: Yes Normal Sensation, Yes Normal DTR's, Yes Normal Gait, No Motor Weakness ED Course Vital Signs 04/28/18 05:45 Temperature 98.7 F Pulse Rate 65 Respiratory 16 Rate Blood Pressure 116/76 O2 Sat by Pulse 100 Oximetry Ed Back Pain Tests - Tests Tests: Normal X Rays ED Medical Decision Making - Radiology Data Radiology results: report reviewed, image reviewed EXAM: XR SPINE LUMBOSACRAL 2-3V HISTORY: lower back pain TECHNIQUE: Three views lumbar spine PRIORS: None. FINDINGS: Lumbar lordosis is intact. Vertebral body heights and intervertebral disc spaces are preserved. No listhesis, spondylolysis or other fracture. IMPRESSION: Unremarkable lumbar spine radiographs. - Medical Decision Making This is a 23-year-old male who presents with mid back pain from football injury yesterday. Patient was examined by me. Vitals are normal and patient is in no acute distress. Obtained a urinalysis L-spine and scan was dictated by radiologist and report an image review by myself. Unremarkable lumbar spine radiographs. Patient informed of results. Start ibuprofen and cyclobenzaprine for muscle strain. Plan discussed with patient to discharge home and treat outpatient. He agrees with ER plan. Patient discharged home in stable condition. Follow up with PCP in 2-3 days Critical care attestation.: If time is entered above; I have spent that time in minutes in the direct care of this critically ill patient, excluding procedure time. ED Disposition Clinical Impression: Back pain due to injury, Strain of muscle and tendon of back wall of thorax, initial encounter Disposition: TO HOME OR SELFCARE Is pt being admited?: No Does the pt Need Aspirin: No Condition: Stable Instructions: Muscle Strain (ED), Lumbar Radiculopathy (ED) Additional Instructions: Rest Use ice or heat on affected area for 20 minutes and off for 2 hours. Take pain medication as needed for pain. Don't drive or operate heavy machinery while taking muscle relaxers because they may cause drowsiness. Follow up with Primary Care Provider in 2-3 days. Prescriptions: Cyclobenzaprine HCl [Flexeril 5 MG TAB] 5 mg PO TID PRN #15 tab PRN Reason: Muscle Spasm Ibuprofen [Motrin 800 MG tab] 800 mg PO Q8HR PRN #15 tablet PRN Reason: Pain , Severe (7-10) Referrals: [facility] [place]Outside] - 3-5 Days [facility] [Outside] - 3-5 Days [facility] [Outside] - 3-5 Days Time of Disposition: 09:01 Print Language: ZIMBABWEAN
--- NOTE | 2018-04-28 08:40 | XRay Report ---
FINAL REPORT EXAM: XR SPINE LUMBOSACRAL 2-3V HISTORY: lower back pain TECHNIQUE: Three views lumbar spine PRIORS: None. FINDINGS: Lumbar lordosis is intact. Vertebral body heights and intervertebral disc spaces are preserved. No listhesis, spondylolysis or other fracture. IMPRESSION: Unremarkable lumbar spine radiographs.
== END 2018-04-28 09:09 | disposition home or self-care (01) ==
LOC: ED 02:29
DX: S29.012A Strain of muscle and tendon of back wall of thorax, initial encounter (principal); Z91.013 Allergy to seafood; Z91.018 Allergy to other foods; Z91.048 Other nonmedicinal substance allergy status; X58.XXXA Exposure to other specified factors, initial encounter; Y93.61 Activity, american tackle football; Y92.89 Other specified places as the place of occurrence of the external cause; Y99.8 Other external cause status
CPT/HCPCS: 72100; 99283

== ENCOUNTER 2019-06-24 19:37 | Emergency (ER) | payer MEDICAID, OTHER ==
--- NOTE | 2019-06-24 19:48 | Event Note ---
ED Screening Note Date of service: 06/24/19 Time: 19:47 ED Screening Note: 24 y o male presents to ED cc of asthma attack ran out of meds This initial assessment/diagnostic orders/clinical plan/treatment(s) is/are subject to change based on patients health status, clinical progression and re-assessment by fellow clinical providers in the ED. Further treatment and workup at subsequent clinical providers discretion. Patient/guardian urged not to elope from the ED as their condition may be serious if not clinically assessed and managed. Initial orders include: duoneb solumedrol Acc eval
[2019-06-24] MEDS ORDERED: IPRATROPIUM/ALBUTEROL SULFATE 3 ML AMPUL.NEB IH ONE (19:52)
[2019-06-24] MEDS ORDERED: IPRATROPIUM 0.02% NEBU 2.5 ML IH ONE (20:05)
[2019-06-24] MEDS ORDERED: ALBUTEROL 2.5 MG/3 ML NEBU IH ONE (20:05)
--- NOTE | 2019-06-24 21:15 | Emergency Department Report ---
ED Asthma HPI - General Chief Complaint: Dyspnea/Respdistress Stated Complaint: ASTHMA Time Seen by Provider: 06/24/19 19:47 Source: patient Mode of arrival: Ambulatory Limitations: Language Barrier - History of Present Illness Initial Comments: Patient is a 24-year-old male who presents to emergency room with complaints of an asthma exacerbation that occurred just prior to arrival. he states that he was inside [employer] and just began to feel shortness of breath and wheezing. Patient denies any fever, rhinorrhea, cough, recent illness, CP. He states that he uses albuterol nebulizer solution and an albuterol inhaler for his asthma. He states he has not had his asthma Medications in 6 months. He states that he has a history of eczema and typically uses hydrocortisone cream for his eczema but also is out of that as well. Patient states that he does have a primary care doctor. - Related Data Previous Rx's Medication Instructions Recorded Last Taken Type ALBUTEROL NEB's [Proventil 0.083% 2.5 mg IH PRN PRN #1 pack 08/30/17 Unknown Rx NEBS] ALBUTEROL NEB's [Proventil 0.083% 2.5 mg IH PRN PRN 30 Days neb 10/08/17 Unknown Rx NEBS] Ibuprofen [Motrin 800 MG tab] 800 mg PO Q8HR PRN #20 tablet 11/24/17 Unknown Rx ALBUTEROL Inhaler (OR & NICU) 2 puff IH QID PRN #1 inhalation 12/24/17 Unknown Rx [ProAir HFA Inhaler] ALBUTEROL Inhaler (OR & NICU) 2 puff IH QID PRN #1 inhalation 01/03/18 Unknown Rx [ProAir HFA Inhaler] ALBUTEROL Inhaler (OR & NICU) 2 puff IH QID PRN #1 pump 01/06/18 Unknown Rx [ProAir HFA Inhaler] Prednisone [predniSONE 5 mg (6-Day 5 mg PO .TAPER #1 tab.ds.pk 01/06/18 Unknown Rx Pack, 21 Tabs)] Cyclobenzaprine HCl [Flexeril 5 MG 5 mg PO TID PRN #15 tab 04/28/18 Unknown Rx TAB] Ibuprofen [Motrin 800 MG tab] 800 mg PO Q8HR PRN #15 tablet 04/28/18 Unknown Rx Albuterol Sulfate [Ventolin HFA] 2 puff IH Q4H PRN #1 hfa.aer.ad 08/17/18 Unknown Rx predniSONE [Deltasone] 3 tab PO QDAY 5 Days #15 tab 08/17/18 Unknown Rx ALBUTEROL Inhaler(NF) [VENTOLIN 1 puff IH Q4-6H PRN #1 inha 08/27/18 Unknown Rx Inhaler(NF)] Cyclobenzaprine [Flexeril] 10 mg PO QHS PRN #10 tablet 08/29/18 Unknown Rx Ibuprofen [Motrin] 600 mg PO Q8H PRN #20 tablet 08/29/18 Unknown Rx ALBUTEROL Inhaler (OR & NICU) 2 puff IH QID PRN #1 device 09/05/18 Unknown Rx [ProAir HFA Inhaler] ALBUTEROL Inhaler(NF) [VENTOLIN 2 puff IH Q4HR PRN #1 inha 09/12/18 Unknown Rx Inhaler(NF)] predniSONE [Deltasone] 50 mg PO QDAY #5 tab 09/12/18 Unknown Rx ALBUTEROL Inhaler (OR & NICU) 2 puff IH QID PRN #1 inhalation 06/24/19 Unknown Rx [ProAir HFA Inhaler] ALBUTEROL NEB's [Proventil 0.083% 2.5 mg IH TID PRN #1 box 06/24/19 Unknown Rx NEBS] Hydrocortisone [Hydrocortisone 1 applicatio TP BID #1 oint...g. 06/24/19 Unknown Rx 2.5% OINT] Allergies Allergy/AdvReac Type Severity Reaction Status Date / Time grape Allergy Rash Verified 08/29/18 18:22 pet dander Allergy Rash Uncoded 12/25/16 20:36 pollen Allergy Unknown Uncoded 12/25/16 20:36 shrimp Allergy Rash Uncoded 12/25/16 20:36 ED Review of Systems ROS: Stated complaint: ASTHMA Other details as noted in HPI Comment: All other systems reviewed and negative ED Past Medical Hx - Past Medical History Hx Hypertension: No Hx CVA: No Hx Psychiatric Treatment: (Pt denies - no EMR in ED) Hx Asthma: Yes Hx Tuberculosis: Yes Additional medical history: eczema - Social History Smoking Status: Never Smoker Substance Use Type: None - Medications Home Medications: Home Medications Medication Instructions Recorded Confirmed Last Taken Type ALBUTEROL NEB's [Proventil 0.083% 2.5 mg IH PRN PRN #1 pack 08/30/17 Unknown Rx NEBS] ALBUTEROL NEB's [Proventil 0.083% 2.5 mg IH PRN PRN 30 Days neb 10/08/17 Unknown Rx NEBS] Ibuprofen [Motrin 800 MG tab] 800 mg PO Q8HR PRN #20 tablet 11/24/17 Unknown Rx ALBUTEROL Inhaler (OR & NICU) 2 puff IH QID PRN #1 inhalation 12/24/17 Unknown Rx [ProAir HFA Inhaler] ALBUTEROL Inhaler (OR & NICU) 2 puff IH QID PRN #1 inhalation 01/03/18 Unknown Rx [ProAir HFA Inhaler] ALBUTEROL Inhaler (OR & NICU) 2 puff IH QID PRN #1 pump 01/06/18 Unknown Rx [ProAir HFA Inhaler] Prednisone [predniSONE 5 mg (6-Day 5 mg PO .TAPER #1 tab.ds.pk 01/06/18 Unknown Rx Pack, 21 Tabs)] Cyclobenzaprine HCl [Flexeril 5 MG 5 mg PO TID PRN #15 tab 04/28/18 Unknown Rx TAB] Ibuprofen [Motrin 800 MG tab] 800 mg PO Q8HR PRN #15 tablet 04/28/18 Unknown Rx Albuterol Sulfate [Ventolin HFA] 2 puff IH Q4H PRN #1 hfa.aer.ad 08/17/18 Unknown Rx predniSONE [Deltasone] 3 tab PO QDAY 5 Days #15 tab 08/17/18 Unknown Rx ALBUTEROL Inhaler(NF) [VENTOLIN 1 puff IH Q4-6H PRN #1 inha 08/27/18 Unknown Rx Inhaler(NF)] Cyclobenzaprine [Flexeril] 10 mg PO QHS PRN #10 tablet 08/29/18 Unknown Rx Ibuprofen [Motrin] 600 mg PO Q8H PRN #20 tablet 08/29/18 Unknown Rx ALBUTEROL Inhaler (OR & NICU) 2 puff IH QID PRN #1 device 09/05/18 Unknown Rx [ProAir HFA Inhaler] ALBUTEROL Inhaler(NF) [VENTOLIN 2 puff IH Q4HR PRN #1 inha 09/12/18 Unknown Rx Inhaler(NF)] predniSONE [Deltasone] 50 mg PO QDAY #5 tab 09/12/18 Unknown Rx ALBUTEROL Inhaler (OR & NICU) 2 puff IH QID PRN #1 inhalation 06/24/19 Unknown Rx [ProAir HFA Inhaler] ALBUTEROL NEB's [Proventil 0.083% 2.5 mg IH TID PRN #1 box 06/24/19 Unknown Rx NEBS] Hydrocortisone [Hydrocortisone 1 applicatio TP BID #1 oint...g. 06/24/19 Unknown Rx 2.5% OINT] ED Physical Exam - General Limitations: Language Barrier General appearance: alert, in no apparent distress - Head Head exam: Present: atraumatic, normocephalic - Eye Eye exam: Present: normal appearance - ENT ENT exam: Present: mucous membranes moist - Respiratory Respiratory exam: Present: normal lung sounds bilaterally. Absent: respiratory distress, rales, rhonchi, stridor, chest wall tenderness, accessory muscle use, decreased breath sounds, prolonged expiratory - Cardiovascular Cardiovascular Exam: Present: regular rate, normal rhythm, normal heart sounds. Absent: systolic murmur, diastolic murmur, rubs, gallop - Neurological Exam Neurological exam: Present: alert, oriented X3 - Psychiatric Psychiatric exam: Present: normal affect, normal mood - Skin Skin exam: Present: warm, dry, other (ezcema changes to the skin, no erythema, no drainage, no blistering, no skin denuding) ED Course Vital Signs 06/24/19 06/24/19 06/24/19 19:50 20:10 20:40 Temperature 98.8 F Pulse Rate 110 H Pulse Rate [ 111 H 120 H Bilateral Throughout] Respiratory 18 Rate Respiratory 24 24 Rate [Bilateral Throughout] Blood Pressure 125/72 Blood Pressure [Right] O2 Sat by Pulse 95 Oximetry 06/24/19 06/24/19 21:51 22:54 Temperature 98.3 F Pulse Rate 80 74 Pulse Rate [ Bilateral Throughout] Respiratory 16 20 Rate Respiratory Rate [Bilateral Throughout] Blood Pressure Blood Pressure 123/67 108/52 [Right] O2 Sat by Pulse 99 98 Oximetry ED Medical Decision Making - Radiology Data Radiology results: report reviewed CHEST 2 VIEWS INDICATION / CLINICAL INFORMATION: sob. COMPARISON: 09/12/18 FINDINGS: SUPPORT DEVICES: None. HEART / MEDIASTINUM: No significant abnormality. LUNGS / PLEURA: No significant pulmonary or pleural abnormality. No pneumothorax. ADDITIONAL FINDINGS: No significant additional findings. IMPRESSION: 1. No acute findings. No change. Signer Name: Willy Owens MD Signed: 06/24/2019 10:38 PM Workstation Name: [id number] Transcribed By: DT Dictated By: Nam Owens MD Electronically Authenticated By: Nam Owens MD Signed Date/Time: 06/24/19 5208 - Medical Decision Making Patient is a 24-year-old male who presents to emergency room with complaints of an asthma exacerbation that occurred just prior to arrival. he states that he was inside [employer] store and just began to feel shortness of breath and wheezing. Patient denies any fever, rhinorrhea, cough, recent illness, CP. He states that he uses albuterol nebulizer solution and an albuterol inhaler for his asthma. He states he has not had his asthma Medications in 6 months. He states that he has a history of eczema and typically uses hydrocortisone cream for his eczema but also is out of that as well. Patient states that he does have a primary care doctor. initial vitals with mild tachycardia which improved upon repeat. Patient given albuterol and Atrovent prior to my examination and wheezing has completely resolved and breath sounds are clear with good air movement. pt states he feels much better denies any SOB or wheezing. CXR with no acute process. Patient also given an injection dexamethasone. Will refill pat lachelle's albuterol nebulizer solution, inhaler, hydrocortisone cream for his eczema. discussed with pt to use medication as prescribed. Advised patient to please follow up with a primary care doctor in the next 2-3 days for his asthma management. Return to the emergency room for any new or worsening symptoms. Critical care attestation.: If time is entered above; I have spent that time in minutes in the direct care of this critically ill patient, excluding procedure time. ED Disposition Clinical Impression: Asthma Qualifiers: Asthma severity: unspecified severity Asthma persistence: unspecified Asthma complication type: with acute exacerbation Qualified Code(s): J45.901 - Unspecified asthma with (acute) exacerbation Disposition: TO HOME OR SELFCARE Is pt being admited?: No Does the pt Need Aspirin: No Condition: Stable Instructions: Asthma (ED) Additional Instructions: use medication as prescribed. please follow up with a primary care doctor in the next 2-3 days for asthma management. Return to the emergency room for any new or worsening symptoms. Prescriptions: Hydrocortisone [Hydrocortisone 2.5% OINT] 1 applicatio TP BID #1 oint...g. ALBUTEROL Inhaler (OR & NICU) [ProAir HFA Inhaler] 2 puff IH QID PRN #1 inhalation PRN Reason: Shortness Of Breath ALBUTEROL NEB's [Proventil 0.083% NEBS] 2.5 mg IH TID PRN #1 box PRN Reason: Wheezing Referrals: [facility] [Provider Group] - 2-3 Days Time of Disposition: 21:35 Print Language: FRENCH
[2019-06-24] MEDS ORDERED: dexAMETHasone 4 MG/ML VIAL IM ONE (21:18)
--- NOTE | 2019-06-24 22:42 | XRay Report ---
CHEST 2 VIEWS INDICATION / CLINICAL INFORMATION: sob. COMPARISON: 09/12/18 FINDINGS: SUPPORT DEVICES: None. HEART / MEDIASTINUM: No significant abnormality. LUNGS / PLEURA: No significant pulmonary or pleural abnormality. No pneumothorax. ADDITIONAL FINDINGS: No significant additional findings. IMPRESSION: 1. No acute findings. No change. Signer Name: Willy Owens MD Signed: 06/24/2019 10:38 PM Workstation Name: [id number]
[2019-06-24 22:55] VITALS: BP 108/52
== END 2019-06-24 23:00 | disposition home or self-care (01) ==
LOC: ED 19:37
DX: J45.901 Unspecified asthma with (acute) exacerbation (principal); Z91.018 Allergy to other foods; Z91.013 Allergy to seafood; Z79.899 Other long term (current) drug therapy
CPT/HCPCS: 71046; 94640; 96372; 99284; J1100; 94644

== ENCOUNTER 2019-07-04 15:17 | Emergency (ER) | payer MEDICAID, OTHER ==
[2019-07-04 15:28] VITALS: BP 117/71
--- NOTE | 2019-07-04 15:33 | Emergency Department Report ---
ED Rash HPI - HPI Chief Complaint: Skin Rash Stated Complaint: ALLERGIC REACTION Time Seen by Provider: 07/04/19 15:26 Duration: 1 Day Rash Symptoms: Yes Itching, No Facial Swelling Other History: 24 y/o male comes in for acute on chronic exzema flare up. Patient reports that he may have eating chocolate which is is allergic to. Patient reports rash is in the folds of his leg, arm, face and leg time 1 day. Patient reports that he is out of his medications. ED Review of Systems ROS: Stated complaint: ALLERGIC REACTION Other details as noted in HPI Comment: All other systems reviewed and negative ED Past Medical Hx - Past Medical History Previous Medical History?: Yes Hx Hypertension: No Hx CVA: No Hx Psychiatric Treatment: (Pt denies - no EMR in ED) Hx Asthma: Yes Hx Tuberculosis: Yes Additional medical history: eczema - Surgical History Past Surgical History?: No - Social History Smoking Status: Never Smoker Substance Use Type: None - Medications Home Medications: Home Medications Medication Instructions Recorded Confirmed Last Taken Type ALBUTEROL NEB's [Proventil 0.083% 2.5 mg IH PRN PRN #1 pack 08/30/17 Unknown Rx NEBS] ALBUTEROL NEB's [Proventil 0.083% 2.5 mg IH PRN PRN 30 Days neb 10/08/17 Unknown Rx NEBS] Ibuprofen [Motrin 800 MG tab] 800 mg PO Q8HR PRN #20 tablet 11/24/17 Unknown Rx ALBUTEROL Inhaler (OR & NICU) 2 puff IH QID PRN #1 inhalation 12/24/17 Unknown Rx [ProAir HFA Inhaler] ALBUTEROL Inhaler (OR & NICU) 2 puff IH QID PRN #1 inhalation 01/03/18 Unknown Rx [ProAir HFA Inhaler] ALBUTEROL Inhaler (OR & NICU) 2 puff IH QID PRN #1 pump 01/06/18 Unknown Rx [ProAir HFA Inhaler] Prednisone [predniSONE 5 mg (6-Day 5 mg PO .TAPER #1 tab.ds.pk 01/06/18 Unknown Rx Pack, 21 Tabs)] Cyclobenzaprine HCl [Flexeril 5 MG 5 mg PO TID PRN #15 tab 04/28/18 Unknown Rx TAB] Ibuprofen [Motrin 800 MG tab] 800 mg PO Q8HR PRN #15 tablet 04/28/18 Unknown Rx Albuterol Sulfate [Ventolin HFA] 2 puff IH Q4H PRN #1 hfa.aer.ad 08/17/18 Unknown Rx predniSONE [Deltasone] 3 tab PO QDAY 5 Days #15 tab 08/17/18 Unknown Rx ALBUTEROL Inhaler(NF) [VENTOLIN 1 puff IH Q4-6H PRN #1 inha 08/27/18 Unknown Rx Inhaler(NF)] Cyclobenzaprine [Flexeril] 10 mg PO QHS PRN #10 tablet 08/29/18 Unknown Rx Ibuprofen [Motrin] 600 mg PO Q8H PRN #20 tablet 08/29/18 Unknown Rx ALBUTEROL Inhaler (OR & NICU) 2 puff IH QID PRN #1 device 09/05/18 Unknown Rx [ProAir HFA Inhaler] ALBUTEROL Inhaler(NF) [VENTOLIN 2 puff IH Q4HR PRN #1 inha 09/12/18 Unknown Rx Inhaler(NF)] predniSONE [Deltasone] 50 mg PO QDAY #5 tab 09/12/18 Unknown Rx ALBUTEROL Inhaler (OR & NICU) 2 puff IH QID PRN #1 inhalation 06/24/19 Unknown Rx [ProAir HFA Inhaler] ALBUTEROL NEB's [Proventil 0.083% 2.5 mg IH TID PRN #1 box 06/24/19 Unknown Rx NEBS] Hydrocortisone [Hydrocortisone 1 applicatio TP BID #1 oint...g. 06/24/19 Unknown Rx 2.5% OINT] Triamcinolone Acetonide 1 applic TP BID PRN #45 oint...g. 07/04/19 Unknown Rx [Triamcinolone Acetonide Oint 0.5%] predniSONE [Deltasone] 10 mg PO QDAY #5 tab 07/04/19 Unknown Rx Rash Exam - Exam General: Vital signs noted. No distress. Alert and acting appropriately. HEENT: No Periorbital Edema, No Conjuctival Injection, No Chemosis, No Perioral Edema, No Tongue Edema, No Uvular Edema, No Compromised Airway, No Drooling Lungs: Yes Good Air Exchange Skin: Yes Maculopapular Rash ( dry scaly rash face neck leg. ) ED Course Vital Signs 07/04/19 15:26 Temperature 97.6 F Pulse Rate 89 Respiratory 18 Rate Blood Pressure 117/71 O2 Sat by Pulse 99 Oximetry ED Medical Decision Making - Medical Decision Making 24 y/o male comes in for acute on chronic exzema flare up. Patient reports that he may have eating chocolate which is is allergic to. Patient reports rash is in the folds of his leg, arm, face and leg time 1 day. Patient reports that he is out of his medications. Rx for triamcinolone and prednisone. Critical care attestation.: If time is entered above; I have spent that time in minutes in the direct care of this critically ill patient, excluding procedure time. ED Disposition Clinical Impression: Atopic eczema Disposition: DC- TO HOME OR SELFCARE Is pt being admited?: No Does the pt Need Aspirin: No Condition: Stable Instructions: Eczema (ED) Prescriptions: predniSONE [Deltasone] 10 mg PO QDAY #5 tab Triamcinolone Acetonide [Triamcinolone Acetonide Oint 0.5%] 1 applic TP BID PRN #45 oint...g. PRN Reason: Rash Referrals: MARISSA KAY MD [Staff Physician] - 3-5 Days
== END 2019-07-04 16:23 | disposition home or self-care (01) ==
LOC: ED 15:17
DX: L30.9 Dermatitis, unspecified (principal); J45.909 Unspecified asthma, uncomplicated; Z91.018 Allergy to other foods; Z91.013 Allergy to seafood; Z79.899 Other long term (current) drug therapy
CPT/HCPCS: 99283

== ENCOUNTER 2019-09-25 05:12 | Emergency (ER) | payer MEDICAID, OTHER ==
[2019-09-25 05:34] VITALS: BP 118/62
[2019-09-25] MEDS ORDERED: ALBUTEROL 2.5 MG/3 ML NEBU IH ONE (07:45)
[2019-09-25] MEDS ORDERED: dexAMETHasone 20 MG/5 ML VIAL IM ONE (07:45)
--- NOTE | 2019-09-25 08:38 | Emergency Department Report ---
ED Asthma HPI - General Chief Complaint: Adult Asthma Stated Complaint: CASS Time Seen by Provider: 09/25/19 07:44 Source: patient, EMS Mode of arrival: Ambulatory Limitations: No Limitations - History of Present Illness Initial Comments: 24-year-old male presents to the emergency room stating his asthma is flared up and his chest feels tight. Patient reports that he's been out of his albuterol medication for a few days. Patient states that his last prescription of albuterol was in August and has ran out. Patient reports is using his al buterol daily. Patient is followed by Dr. Fonseca at [facility] [place]. His next appointment is in September. Patient has no known drug allergies, past medical history of asthma in current medications are albuterol which is ran out of. MD Complaint: wheezing Onset/Timin -: days(s) Severity: mild Context: ran out of meds Associated Symptoms: other (chest tightness) - Related Data Previous Rx's Medication Instructions Recorded Last Taken Type ALBUTEROL NEB's [Proventil 0.083% 2.5 mg IH PRN PRN #1 pack 08/30/17 Unknown Rx NEBS] ALBUTEROL NEB's [Proventil 0.083% 2.5 mg IH PRN PRN 30 Days neb 10/08/17 Unknown Rx NEBS] Ibuprofen [Motrin 800 MG tab] 800 mg PO Q8HR PRN #20 tablet 11/24/17 Unknown Rx ALBUTEROL Inhaler (OR & NICU) 2 puff IH QID PRN #1 inhalation 12/24/17 Unknown Rx [ProAir HFA Inhaler] ALBUTEROL Inhaler (OR & NICU) 2 puff IH QID PRN #1 inhalation 01/03/18 Unknown Rx [ProAir HFA Inhaler] ALBUTEROL Inhaler (OR & NICU) 2 puff IH QID PRN #1 pump 01/06/18 Unknown Rx [ProAir HFA Inhaler] Prednisone [predniSONE 5 mg (6-Day 5 mg PO .TAPER #1 tab.ds.pk 01/06/18 Unknown Rx Pack, 21 Tabs)] Cyclobenzaprine HCl [Flexeril 5 MG 5 mg PO TID PRN #15 tab 04/28/18 Unknown Rx TAB] Ibuprofen [Motrin 800 MG tab] 800 mg PO Q8HR PRN #15 tablet 04/28/18 Unknown Rx Albuterol Sulfate [Ventolin HFA] 2 puff IH Q4H PRN #1 hfa.aer.ad 08/17/18 Unknown Rx predniSONE [Deltasone] 3 tab PO QDAY 5 Days #15 tab 08/17/18 Unknown Rx ALBUTEROL Inhaler(NF) [VENTOLIN 1 puff IH Q4-6H PRN #1 inha 08/27/18 Unknown Rx Inhaler(NF)] Cyclobenzaprine [Flexeril] 10 mg PO QHS PRN #10 tablet 08/29/18 Unknown Rx Ibuprofen [Motrin] 600 mg PO Q8H PRN #20 tablet 08/29/18 Unknown Rx ALBUTEROL Inhaler (OR & NICU) 2 puff IH QID PRN #1 device 09/05/18 Unknown Rx [ProAir HFA Inhaler] ALBUTEROL Inhaler(NF) [VENTOLIN 2 puff IH Q4HR PRN #1 inha 09/12/18 Unknown Rx Inhaler(NF)] predniSONE [Deltasone] 50 mg PO QDAY #5 tab 09/12/18 Unknown Rx ALBUTEROL NEB's [Proventil 0.083% 2.5 mg IH TID PRN #1 box 06/24/19 Unknown Rx NEBS] Hydrocortisone [Hydrocortisone 1 applicatio TP BID #1 oint...g. 06/24/19 Unknown Rx 2.5% OINT] Triamcinolone Acetonide 1 applic TP BID PRN #45 oint...g. 07/04/19 Unknown Rx [Triamcinolone Acetonide Oint 0.5%] predniSONE [Deltasone] 10 mg PO QDAY #5 tab 07/04/19 Unknown Rx ALBUTEROL Inhaler (OR & NICU) 2 puff IH QID PRN #1 inhalation 09/25/19 Unknown Rx [ProAir HFA Inhaler] Fluticasone/Salmeterol [Advair 1 puff IH BID #1 disk.w.dev 09/25/19 Unknown Rx Diskus 250-50 mcg] Allergies Allergy/AdvReac Type Severity Reaction Status Date / Time grape Allergy Rash Verified 08/29/18 18:22 pet dander Allergy Rash Uncoded 12/25/16 20:36 pollen Allergy Unknown Uncoded 12/25/16 20:36 shrimp Allergy Rash Uncoded 12/25/16 20:36 ED Review of Systems ROS: Stated complaint: CASS Other details as noted in HPI Comment: All other systems reviewed and negative ED Past Medical Hx - Past Medical History Previous Medical History?: Yes Hx Hypertension: No Hx CVA: No Hx Psychiatric Treatment: (Pt denies - no EMR in ED) Hx Asthma: Yes Hx Tuberculosis: Yes Additional medical history: eczema - Surgical History Past Surgical History?: No - Social History Smoking Status: Never Smoker Substance Use Type: None - Medications Home Medications: Home Medications Medication Instructions Recorded Confirmed Last Taken Type ALBUTEROL NEB's [Proventil 0.083% 2.5 mg IH PRN PRN #1 pack 08/30/17 Unknown Rx NEBS] ALBUTEROL NEB's [Proventil 0.083% 2.5 mg IH PRN PRN 30 Days neb 10/08/17 Unknown Rx NEBS] Ibuprofen [Motrin 800 MG tab] 800 mg PO Q8HR PRN #20 tablet 11/24/17 Unknown Rx ALBUTEROL Inhaler (OR & NICU) 2 puff IH QID PRN #1 inhalation 12/24/17 Unknown Rx [ProAir HFA Inhaler] ALBUTEROL Inhaler (OR & NICU) 2 puff IH QID PRN #1 inhalation 01/03/18 Unknown Rx [ProAir HFA Inhaler] ALBUTEROL Inhaler (OR & NICU) 2 puff IH QID PRN #1 pump 01/06/18 Unknown Rx [ProAir HFA Inhaler] Prednisone [predniSONE 5 mg (6-Day 5 mg PO .TAPER #1 tab.ds.pk 01/06/18 Unknown Rx Pack, 21 Tabs)] Cyclobenzaprine HCl [Flexeril 5 MG 5 mg PO TID PRN #15 tab 04/28/18 Unknown Rx TAB] Ibuprofen [Motrin 800 MG tab] 800 mg PO Q8HR PRN #15 tablet 04/28/18 Unknown Rx Albuterol Sulfate [Ventolin HFA] 2 puff IH Q4H PRN #1 hfa.aer.ad 08/17/18 Unknown Rx predniSONE [Deltasone] 3 tab PO QDAY 5 Days #15 tab 08/17/18 Unknown Rx ALBUTEROL Inhaler(NF) [VENTOLIN 1 puff IH Q4-6H PRN #1 inha 08/27/18 Unknown Rx Inhaler(NF)] Cyclobenzaprine [Flexeril] 10 mg PO QHS PRN #10 tablet 08/29/18 Unknown Rx Ibuprofen [Motrin] 600 mg PO Q8H PRN #20 tablet 08/29/18 Unknown Rx ALBUTEROL Inhaler (OR & NICU) 2 puff IH QID PRN #1 device 09/05/18 Unknown Rx [ProAir HFA Inhaler] ALBUTEROL Inhaler(NF) [VENTOLIN 2 puff IH Q4HR PRN #1 inha 09/12/18 Unknown Rx Inhaler(NF)] predniSONE [Deltasone] 50 mg PO QDAY #5 tab 09/12/18 Unknown Rx ALBUTEROL NEB's [Proventil 0.083% 2.5 mg IH TID PRN #1 box 06/24/19 Unknown Rx NEBS] Hydrocortisone [Hydrocortisone 1 applicatio TP BID #1 oint...g. 06/24/19 Unknown Rx 2.5% OINT] Triamcinolone Acetonide 1 applic TP BID PRN #45 oint...g. 07/04/19 Unknown Rx [Triamcinolone Acetonide Oint 0.5%] predniSONE [Deltasone] 10 mg PO QDAY #5 tab 07/04/19 Unknown Rx ALBUTEROL Inhaler (OR & NICU) 2 puff IH QID PRN #1 inhalation 09/25/19 Unknown Rx [ProAir HFA Inhaler] Fluticasone/Salmeterol [Advair 1 puff IH BID #1 disk.w.dev 09/25/19 Unknown Rx Diskus 250-50 mcg] ED Physical Exam - General Limitations: No Limitations General appearance: alert, in no apparent distress - Head Head exam: Present: atraumatic, normocephalic - Eye Eye exam: Present: normal appearance - ENT ENT exam: Present: mucous membranes moist - Neck Neck exam: Present: normal inspection, full ROM - Respiratory Respiratory exam: Present: wheezes, prolonged expiratory - Cardiovascular Cardiovascular Exam: Present: regular rate, normal rhythm. Absent: systolic murmur, diastolic murmur, rubs, gallop - GI/Abdominal GI/Abdominal exam: Present: soft, normal bowel sounds - Back Exam Back exam: Present: normal inspection - Neurological Exam Neurological exam: Present: alert, oriented X3, normal gait - Psychiatric Psychiatric exam: Present: normal affect, normal mood - Skin Skin exam: Present: warm, dry, intact, normal color. Absent: rash ED Course Vital Signs 09/25/19 09/25/19 05:29 09:17 Temperature 98.5 F Pulse Rate 81 Respiratory 18 18 Rate Blood Pressure 118/62 O2 Sat by Pulse 97 97 Oximetry - Reevaluation(s) Reevaluation #1: 09/25/19 09:22 Chest exam patient has improved. Still has a mild right expiratory wheeze. Patient given prednisone albuterol 5 mg. Patient will be discharged home in Advair and albuterol ED Medical Decision Making - Medical Decision Making 24-year-old male presents to the emergency room stating his asthma is flared up and his chest feels tight. Patient reports that he's been out of his albuterol medication for a few days. Patient states that his last prescription of albuterol was in August and has ran out. Patient reports is using his albuterol daily. Patient is followed by Dr. Fonseca at [facility] [place]. His next appointment is in September. Patient has no known drug allergies, past medical history of asthma in current medications are albuterol which is ran out of. Patient was given albuterol and prednisone. Chest exam patient has improved. Still has a mild right expiratory wheeze. Patient given prednisone albuterol 5 mg. Patient will be discharged home in Advair and albuterol Critical care attestation.: If time is entered above; I have spent that time in minutes in the direct care of this critically ill patient, excluding procedure time. ED Disposition Clinical Impression: Asthma Disposition: DC-01 TO HOME OR SELFCARE Is pt being admited?: No Does the pt Need Aspirin: No Condition: Stable Instructions: Asthma (ED) Additional Instructions: Use inhalers as prescribed. Follow up with Mr. Fonseca at [facility]. Prescriptions: Fluticasone/Salmeterol [Advair Diskus 250-50 mcg] 1 puff IH BID #1 disk.w.dev ALBUTEROL Inhaler (OR & NICU) [ProAir HFA Inhaler] 2 puff IH QID PRN #1 inhalation PRN Reason: Shortness Of Breath Referrals: PRIMARY CARE, [Primary Care Provider] - 3-5 Days JENNA FONSECA MD [Referring] - 3-5 Days
[2019-09-25] MEDS ORDERED: predniSONE 20 MG TAB PO ONE (08:45)
== END 2019-09-25 09:22 | disposition home or self-care (01) ==
LOC: ED 05:12
DX: J45.909 Unspecified asthma, uncomplicated (principal); Z98.890 Other specified postprocedural states; Z79.899 Other long term (current) drug therapy; Z91.018 Allergy to other foods; Z91.048 Other nonmedicinal substance allergy status; Z91.013 Allergy to seafood
CPT/HCPCS: 94640; 99283; J1100; J7512

== ENCOUNTER 2019-10-02 02:54 | Emergency (ER) | payer SELFPAY ==
[2019-10-02 03:37] VITALS: BP 107/63
[2019-10-02] MEDS ORDERED: IPRATROPIUM/ALBUTEROL SULFATE 3 ML AMPUL.NEB IH ONE (05:13)
[2019-10-02] MEDS ORDERED: ALBUTEROL 2.5 MG/3 ML NEBU IH ONE (05:13)
[2019-10-02] MEDS ORDERED: methylPREDNISolone Sod Succinate 125 MG/2 ML INJ IM ONE (05:13)
--- NOTE | 2019-10-02 05:37 | XRay Report ---
CHEST 2 VIEWS, 10/02/2019 5:26 AM INDICATION: Shortness of breath COMPARISON: Chest radiograph, 09/25/2019 FINDINGS: Support devices: None Heart: The cardiac silhouette is normal in size. Lungs/pleura: The lungs are mildly hyperinflated but appear clear of focal airspace disease or signif icant pleural effusion. Additional findings: Evaluation of bony structures demonstrates no evidence of acute bony abnormality . IMPRESSION: 1. No evidence of acute cardiopulmonary process. Signer Name: Rin Jiménez MD Signed: 10/02/2019 5:33 AM Workstation Name: [id number]
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
== END 2019-10-02 06:50 | disposition home or self-care (01) ==
LOC: ED 02:54
DX: J20.9 Acute bronchitis, unspecified (principal); J45.901 Unspecified asthma with (acute) exacerbation
CPT/HCPCS: 71046; 96372; 99284; J2930

== ENCOUNTER 2019-10-07 04:33 | Emergency (ER) | payer SELFPAY ==
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
--- NOTE | 2019-10-07 10:07 | XRay Report ---
CHEST 2 VIEWS INDICATION: dyspnea and cough. COMPARISON: 10/02/2019 FINDINGS: Support devices: None. Heart: Within normal limits. Pulmonary vasculature: Normal. Lungs/pleura: A new patchy right basal opacity on the frontal view. The lungs are otherwise clear. No pleural effusion. No pneumothorax. Additional findings: None. IMPRESSION: 1. Right lower lobe pneumonia without consolidation. Signer Name: Fortunato Melendrez MD Signed: 10/07/2019 10:02 AM Workstation Name: [id number]
[2019-10-07 10:52] VITALS: BP 111/70
== END 2019-10-07 10:54 | disposition home or self-care (01) ==
LOC: ED 04:33
DX: R07.89 Other chest pain (principal); J15.1 Pneumonia due to Pseudomonas; J45.909 Unspecified asthma, uncomplicated; Z79.899 Other long term (current) drug therapy; Z91.018 Allergy to other foods; Z91.013 Allergy to seafood; Z91.09 Other allergy status, other than to drugs and biological substances
CPT/HCPCS: 71046

== ENCOUNTER 2020-06-02 21:52 | Emergency (ER) | payer MEDICAID ==
[2020-06-02 23:53] VITALS: BP 140/86
[2020-06-03] MEDS ORDERED: IPRATROPIUM/ALBUTEROL SULFATE 3 ML AMPUL.NEB IH ONE (01:12)
[2020-06-03] MEDS ORDERED: dexAMETHasone 20 MG/5 ML VIAL IM ONE (01:12)
--- NOTE | 2020-06-03 02:04 | Emergency Department Report ---
- General Chief Complaint: Upper Respiratory Infection Stated Complaint: ASTHMA Source: patient Mode of arrival: Ambulatory Limitations: No Limitations - History of Present Illness Initial Comments: Patient is a 25-year-old male with a history of asthma and eczema who presents to the ED with acute exacerbation of his chronic eczema and shortness of breath with persistent dry cough for the last 2 hours. Patient states that his eczema has been worsening especially in the last 1 month [place] lot of insect bites and other plants that kept coming to contact with him and causing persistent exacerbations. Patient states that he was laying down in the house and the temperature was low and he started having shortness of breath. Patient states that he has not had any fever, chills, nausea, vomiting, chest pain, dizziness, syncope, sore throat, abdominal pain, diarrhea, syncope or palpitations. MD Complaint: cough, nasal congestion, other (diffuse itchy erythematous rashes, eczema flare) -: Sudden, hour(s) (2) Severity: moderate Severity scale (0 -10): 5 Quality: burning, aching Consistency: intermittent Improves With: nothing Worsens With: nothing Context: other (exposed to cold temperature) Associated Symptoms: denies other symptoms, rhinorrhea, nasal congestion, cough, shortness of breath, other (itchy rashes). denies: fever, chills, myalgias, diaphoresis, headache, sore throat, stiff neck, chest pain, abdominal pain, nausea, vomiting, diarrhea, dysuria, rash, confusion, weight loss, epistaxis, hoarseness, ear pain Treatments Prior to Arrival: none - Related Data Previous Rx's Medication Instructions Recorded Last Taken Type ALBUTEROL NEB's [Proventil 0.083% 2.5 mg IH PRN PRN #1 pack 08/30/17 Unknown Rx NEBS] ALBUTEROL NEB's [Proventil 0.083% 2.5 mg IH PRN PRN 30 Days neb 10/08/17 Unknown Rx NEBS] Ibuprofen [Motrin 800 MG tab] 800 mg PO Q8HR PRN #20 tablet 11/24/17 Unknown Rx Albuterol Mdi (or & Nicu Only) 2 puff IH QID PRN #1 inhalation 01/03/18 Unknown Rx [ProAir HFA Inhaler] Albuterol Mdi (or & Nicu Only) 2 puff IH QID PRN #1 pump 01/06/18 Unknown Rx [ProAir HFA Inhaler] Prednisone [predniSONE 5 mg (6-Day 5 mg PO .TAPER #1 tab.ds.pk 01/06/18 Unknown Rx Pack, 21 Tabs)] Cyclobenzaprine HCl [Flexeril 5 MG 5 mg PO TID PRN #15 tab 04/28/18 Unknown Rx TAB] Ibuprofen [Motrin 800 MG tab] 800 mg PO Q8HR PRN #15 tablet 04/28/18 Unknown Rx Albuterol Sulfate [Ventolin HFA] 2 puff IH Q4H PRN #1 hfa.aer.ad 08/17/18 Unknown Rx ALBUTEROL Inhaler(NF) [VENTOLIN 1 puff IH Q4-6H PRN #1 inha 08/27/18 Unknown Rx Inhaler(NF)] Cyclobenzaprine [Flexeril] 10 mg PO QHS PRN #10 tablet 08/29/18 Unknown Rx Ibuprofen [Motrin] 600 mg PO Q8H PRN #20 tablet 08/29/18 Unknown Rx Albuterol Mdi (or & Nicu Only) 2 puff IH QID PRN #1 device 09/05/18 Unknown Rx [ProAir HFA Inhaler] ALBUTEROL Inhaler(NF) [VENTOLIN 2 puff IH Q4HR PRN #1 inha 09/12/18 Unknown Rx Inhaler(NF)] predniSONE [Deltasone] 50 mg PO QDAY #5 tab 09/12/18 Unknown Rx ALBUTEROL NEB's [Proventil 0.083% 2.5 mg IH TID PRN #1 box 06/24/19 Unknown Rx NEBS] Hydrocortisone [Hydrocortisone 1 applicatio TP BID #1 oint...g. 06/24/19 Unknown Rx 2.5% OINT] Triamcinolone Acetonide 1 applic TP BID PRN #45 oint...g. 07/04/19 Unknown Rx [Triamcinolone Acetonide Oint 0.5%] predniSONE [Deltasone] 10 mg PO QDAY #5 tab 07/04/19 Unknown Rx Albuterol Mdi (or & Nicu Only) 2 puff IH QID PRN #1 inhalation 09/25/19 Unknown Rx [ProAir HFA Inhaler] Fluticasone/Salmeterol [Advair 1 puff IH BID #1 disk.w.dev 09/25/19 Unknown Rx Diskus 250-50 mcg] predniSONE [Deltasone] 40 mg PO QDAY #8 tablet 09/25/19 Unknown Rx Albuterol Mdi (or & Nicu Only) 2 puff IH QID PRN #1 inhalation 10/02/19 Unknown Rx [ProAir HFA Inhaler] Azithromycin [Zithromax Z-CELIA] 250 mg PO DAILY #6 tablet 10/02/19 Unknown Rx Benzonatate [Tessalon Perles] 100 mg PO Q8HR #30 capsule 10/02/19 Unknown Rx predniSONE [Deltasone] 3 tab PO QDAY 5 Days #15 tab 10/02/19 Unknown Rx Albuterol Mdi (or & Nicu Only) 2 puff IH QID PRN #8.5 gram 10/07/19 Unknown Rx [ProAir HFA Inhaler] levoFLOXacin [Levaquin TAB] 750 mg PO QDAY #7 tablet 10/07/19 Unknown Rx Albuterol Sulfate [Proventil Hfa] 1 - 2 puff IH Q6H PRN #1 hfa.aer.ad 06/03/20 Unknown Rx Triamcinolone Acetonide 1 applic TP BID #1 tube 06/03/20 Unknown Rx [Triamcinolone Acetonide Oint 0.5%] cephALEXin [Keflex] 500 mg PO Q6HR #40 capsule 06/03/20 Unknown Rx diphenhydrAMINE [Benadryl CAP] 25 mg PO Q6HR PRN #40 capsule 06/03/20 Unknown Rx predniSONE [Deltasone] 40 mg PO QDAY #14 tab 06/03/20 Unknown Rx Allergies Allergy/AdvReac Type Severity Reaction Status Date / Time grape Allergy Rash Verified 08/29/18 18:22 pet dander Allergy Rash Uncoded 12/25/16 20:36 pollen Allergy Unknown Uncoded 12/25/16 20:36 shrimp Allergy Rash Uncoded 12/25/16 20:36 ED Review of Systems ROS: Stated complaint: ASTHMA Other details as noted in HPI Constitutional: denies: chills, fever Eyes: denies: eye pain, eye discharge, vision change ENT: congestion. denies: ear pain, throat pain Respiratory: cough, shortness of breath, wheezing Cardiovascular: denies: chest pain, palpitations Endocrine: no symptoms reported Gastrointestinal: denies: abdominal pain, nausea, diarrhea Genitourinary: denies: urgency, dysuria Musculoskeletal: denies: back pain, joint swelling, arthralgia Skin: rash (Diffuse erythematous macular papular rashes with ulcerations), change in color, pruritus. denies: lesions Neurological: denies: headache, weakness, paresthesias Psychiatric: denies: anxiety, depression Hematological/Lymphatic: denies: easy bleeding, easy bruising ED Past Medical Hx - Past Medical History Hx Hypertension: No Hx CVA: No Hx Psychiatric Treatment: (Pt denies - no EMR in ED) Hx Asthma: Yes Hx Tuberculosis: Yes Additional medical history: eczema - Social History Smoking Status: Never Smoker Substance Use Type: None - Medications Home Medications: Home Medications Medication Instructions Recorded Confirmed Last Taken Type ALBUTEROL NEB's [Proventil 0.083% 2.5 mg IH PRN PRN #1 pack 08/30/17 Unknown Rx NEBS] ALBUTEROL NEB's [Proventil 0.083% 2.5 mg IH PRN PRN 30 Days neb 10/08/17 Unknown Rx NEBS] Ibuprofen [Motrin 800 MG tab] 800 mg PO Q8HR PRN #20 tablet 11/24/17 Unknown Rx Albuterol Mdi (or & Nicu Only) 2 puff IH QID PRN #1 inhalation 01/03/18 Unknown Rx [ProAir HFA Inhaler] Albuterol Mdi (or & Nicu Only) 2 puff IH QID PRN #1 pump 01/06/18 Unknown Rx [ProAir HFA Inhaler] Prednisone [predniSONE 5 mg (6-Day 5 mg PO .TAPER #1 tab.ds.pk 01/06/18 Unknown Rx Pack, 21 Tabs)] Cyclobenzaprine HCl [Flexeril 5 MG 5 mg PO TID PRN #15 tab 04/28/18 Unknown Rx TAB] Ibuprofen [Motrin 800 MG tab] 800 mg PO Q8HR PRN #15 tablet 04/28/18 Unknown Rx Albuterol Sulfate [Ventolin HFA] 2 puff IH Q4H PRN #1 hfa.aer.ad 08/17/18 Unkno wn Rx ALBUTEROL Inhaler(NF) [VENTOLIN 1 puff IH Q4-6H PRN #1 inha 08/27/18 Unknown Rx Inhaler(NF)] Cyclobenzaprine [Flexeril] 10 mg PO QHS PRN #10 tablet 08/29/18 Unknown Rx Ibuprofen [Motrin] 600 mg PO Q8H PRN #20 tablet 08/29/18 Unknown Rx Albuterol Mdi (or & Nicu Only) 2 puff IH QID PRN #1 device 09/05/18 Unknown Rx [ProAir HFA Inhaler] ALBUTEROL Inhaler(NF) [VENTOLIN 2 puff IH Q4HR PRN #1 inha 09/12/18 Unknown Rx Inhaler(NF)] predniSONE [Deltasone] 50 mg PO QDAY #5 tab 09/12/18 Unknown Rx ALBUTEROL NEB's [Proventil 0.083% 2.5 mg IH TID PRN #1 box 06/24/19 Unknown Rx NEBS] Hydrocortisone [Hydrocortisone 1 applicatio TP BID #1 oint...g. 06/24/19 Unknown Rx 2.5% OINT] Triamcinolone Acetonide 1 applic TP BID PRN #45 oint...g. 07/04/19 Unknown Rx [Triamcinolone Acetonide Oint 0.5%] predniSONE [Deltasone] 10 mg PO QDAY #5 tab 07/04/19 Unknown Rx Albuterol Mdi (or & Nicu Only) 2 puff IH QID PRN #1 inhalation 09/25/19 Unknown Rx [ProAir HFA Inhaler] Fluticasone/Salmeterol [Advair 1 puff IH BID #1 disk.w.dev 09/25/19 Unknown Rx Diskus 250-50 mcg] predniSONE [Deltasone] 40 mg PO QDAY #8 tablet 09/25/19 Unknown Rx Albuterol Mdi (or & Nicu Only) 2 puff IH QID PRN #1 inhalation 10/02/19 Unknown Rx [ProAir HFA Inhaler] Azithromycin [Zithromax Z-CELIA] 250 mg PO DAILY #6 tablet 10/02/19 Unknown Rx Benzonatate [Tessalon Perles] 100 mg PO Q8HR #30 capsule 10/02/19 Unknown Rx predniSONE [Deltasone] 3 tab PO QDAY 5 Days #15 tab 10/02/19 Unknown Rx Albuterol Mdi (or & Nicu Only) 2 puff IH QID PRN #8.5 gram 10/07/19 Unknown Rx [ProAir HFA Inhaler] levoFLOXacin [Levaquin TAB] 750 mg PO QDAY #7 tablet 10/07/19 Unknown Rx Albuterol Sulfate [Proventil Hfa] 1 - 2 puff IH Q6H PRN #1 hfa.aer.ad 06/03/20 Unknown Rx Triamcinolone Acetonide 1 applic TP BID #1 tube 06/03/20 Unknown Rx [Triamcinolone Acetonide Oint 0.5%] cephALEXin [Keflex] 500 mg PO Q6HR #40 capsule 06/03/20 Unknown Rx diphenhydrAMINE [Benadryl CAP] 25 mg PO Q6HR PRN #40 capsule 06/03/20 Unknown Rx predniSONE [Deltasone] 40 mg PO QDAY #14 tab 06/03/20 Unknown Rx ED Physical Exam - General Limitations: No Limitations General appearance: alert, in no apparent distress - Head Head exam: Present: atraumatic, normocephalic, normal inspection - Eye Eye exam: Present: normal appearance, PERRL, EOMI Pupils: Present: normal accommodation - ENT ENT exam: Present: normal exam, normal orophraynx, mucous membranes moist, TM's normal bilaterally, normal external ear exam - Neck Neck exam: Present: normal inspection, full ROM - Respiratory Respiratory exam: Present: wheezes (Mildly diffuse coarse wheezes throughout). Absent: respiratory distress, rales, rhonchi, stridor, chest wall tenderness, accessory muscle use, decreased breath sounds, prolonged expiratory - Cardiovascular Cardiovascular Exam: Present: regular rate, normal rhythm, normal heart sounds. Absent: systolic murmur, diastolic murmur, rubs, gallop - GI/Abdominal GI/Abdominal exam: Present: soft, normal bowel sounds. Absent: tenderness, hyperactive bowel sounds - Extremities Exam Extremities exam: Present: normal inspection, full ROM, normal capillary refill - Back Exam Back exam: Present: normal inspection, full ROM. Absent: tenderness, CVA tend erness (R), CVA tenderness (L), muscle spasm, paraspinal tenderness, vertebral tenderness - Neurological Exam Neurological exam: Present: alert, oriented X3, CN II-XII intact, normal gait, reflexes normal - Psychiatric Psychiatric exam: Present: normal affect, normal mood - Skin Skin exam: Present: warm, dry, intact, normal color, rash (Diffuse erythematous ulcerated rashes on the flexural surfaces of the upper and lower extremities diffusely) ED Course Vital Signs 06/02/20 23:19 Temperature 98.5 F Pulse Rate 65 Respiratory 18 Rate Blood Pressure 140/86 O2 Sat by Pulse 96 Oximetry ED Medical Decision Making - Medical Decision Making This is a 25-year-old male with a history of asthma and eczema who presents to the ED with acute exacerbation of his chronic eczema and shortness of breath with persistent dry cough for the last 2 hours. Patient states that his eczema has been worsening especially in the last 1 month [place] to a lot of insect bites and other plants that kept coming to contact with him and causing persistent exacerbations. Patient states that he was laying down in the house and the temperature was low and he started having shortness of breath. In the ED, patient is alert and oriented x3 and is not in distress. Patient was treated in the ED with Decadron and DuoNeb in the ED. On reevaluation, patient's wheezing resolved and patient felt better and was discharged home on albuterol inhaler as needed, oral prednisone and triamcinolone acetonide ointment. Patient was given a referral to [facility] clinic to follow-up on his chronic eczema and asthma. Patient was advised return to the ED immediately if symptoms get worse. - Differential Diagnosis Asthma; bronchitis; chronic eczema; cellulitis; folliculitis; Critical care attestation.: If time is entered above; I have spent that time in minutes in the direct care of this critically ill patient, excluding procedure time. ED Disposition Clinical Impression: Chronic eczema Asthmatic bronchitis with acute exacerbation Qualifiers: Asthma severity: mild Asthma persistence: intermittent Qualified Code(s): J45.21 - Mild intermittent asthma with (acute) exacerbation Cellulitis Qualifiers: Site of cellulitis: other site Qualified Code(s): L03.818 - Cellulitis of other sites Disposition: - TO HOME OR SELFCARE Is pt being admited?: No Does the pt Need Aspirin: No Condition: Stable Instructions: Asthma (ED), Acute Bronchitis (ED), Eczema (ED), Itchy Skin (ED), Cellulitis (ED) Additional Instructions: Take medication with food, drink plenty of fluids and follow-up with your primary care physician at [facility] in 3 to 5 days for reevaluation. Return to the ED immediately if symptoms get worse. Prescriptions: diphenhydrAMINE [Benadryl CAP] 25 mg PO Q6HR PRN #40 capsule PRN Reason: Itching predniSONE [Deltasone] 40 mg PO QDAY #14 tab cephALEXin [Keflex] 500 mg PO Q6HR #40 capsule Albuterol Sulfate [Proventil Hfa] 1 - 2 puff IH Q6H PRN #1 hfa.aer.ad PRN Reason: Dyspnea Triamcinolone Acetonide [Triamcinolone Acetonide Oint 0.5%] 1 applic TP BID #1 tube Referrals: [facility] [Provider Group] - 3-5 Days Time of Disposition: 02:09 Print Language: GEORGIAN
== END 2020-06-03 02:50 | disposition home or self-care (01) ==
LOC: ED 21:52
DX: J45.901 Unspecified asthma with (acute) exacerbation (principal); L03.90 Cellulitis, unspecified; L30.9 Dermatitis, unspecified; Z91.018 Allergy to other foods; Z91.013 Allergy to seafood; Z91.048 Other nonmedicinal substance allergy status; Z79.899 Other long term (current) drug therapy
CPT/HCPCS: 94640; 96372; 99283; J1100

== ENCOUNTER 2020-07-18 02:16 | Emergency (ER) | payer MEDICAID ==
[2020-07-18] MEDS ORDERED: IPRATROPIUM 0.02% NEBU 2.5 ML IH ONE ×2 (05:40→05:42)
[2020-07-18] MEDS ORDERED: methylPREDNISolone Sod Succinate 125 MG/2 ML INJ ONE (05:40)
[2020-07-18] MEDS ORDERED: MAGNESIUM SULFATE 2 GM/50 ML BAG IV ONE ×2 (05:40→05:42)
[2020-07-18] MEDS ORDERED: ALBUTEROL 2.5 MG/3 ML NEBU IH ONE ×2 (05:40→05:42)
[2020-07-18] MEDS ORDERED: methylPREDNISolone Sod Succinate 125 MG/2 ML INJ IV ONE (05:42)
[2020-07-18 05:54] VITALS: BP 122/80
--- NOTE | 2020-07-18 06:34 | Emergency Department Report ---
ED Asthma HPI - General Chief Complaint: Adult Asthma Stated Complaint: CASS Time Seen by Provider: 07/18/20 06:09 Source: patient Mode of arrival: Ambulatory Limitations: No Limitations - History of Present Illness Initial Comments: Patient is a 25-year-old male with past medical history of asthma who is presenting with cough cold audible wheezing for the past 2 days. Patient has been very short of breath and does not have an inhaler. He denies fevers chills nausea vomiting at this time. Context: ran out of meds Associated Symptoms: dry cough. denies: productive cough, fever, chest pain, hemoptysis, leg edema, syncope - Related Data Previous Rx's Medication Instructions Recorded Last Taken Type ALBUTEROL NEB's [Proventil 0.083% 2.5 mg IH PRN PRN #1 pack 08/30/17 Unknown Rx NEBS] ALBUTEROL NEB's [Proventil 0.083% 2.5 mg IH PRN PRN 30 Days neb 10/08/17 Unknown Rx NEBS] Ibuprofen [Motrin 800 MG tab] 800 mg PO Q8HR PRN #20 tablet 11/24/17 Unknown Rx Albuterol Mdi (or & Nicu Only) 2 puff IH QID PRN #1 inhalation 01/03/18 Unknown Rx [ProAir HFA Inhaler] Albuterol Mdi (or & Nicu Only) 2 puff IH QID PRN #1 pump 01/06/18 Unknown Rx [ProAir HFA Inhaler] Prednisone [predniSONE 5 mg (6-Day 5 mg PO .TAPER #1 tab.ds.pk 01/06/18 Unknown Rx Pack, 21 Tabs)] Cyclobenzaprine HCl [Flexeril 5 MG 5 mg PO TID PRN #15 tab 04/28/18 Unknown Rx TAB] Ibuprofen [Motrin 800 MG tab] 800 mg PO Q8HR PRN #15 tablet 04/28/18 Unknown Rx Albuterol Sulfate [Ventolin HFA] 2 puff IH Q4H PRN #1 hfa.aer.ad 08/17/18 Unknown Rx ALBUTEROL Inhaler(NF) [VENTOLIN 1 puff IH Q4-6H PRN #1 inha 08/27/18 Unknown Rx Inhaler(NF)] Cyclobenzaprine [Flexeril] 10 mg PO QHS PRN #10 tablet 08/29/18 Unknown Rx Ibuprofen [Motrin] 600 mg PO Q8H PRN #20 tablet 08/29/18 Unknown Rx Albuterol Mdi (or & Nicu Only) 2 puff IH QID PRN #1 device 09/05/18 Unknown Rx [ProAir HFA Inhaler] ALBUTEROL Inhaler(NF) [VENTOLIN 2 puff IH Q4HR PRN #1 inha 09/12/18 Unknown Rx Inhaler(NF)] predniSONE [Deltasone] 50 mg PO QDAY #5 tab 09/12/18 Unknown Rx ALBUTEROL NEB's [Proventil 0.083% 2.5 mg IH TID PRN #1 box 06/24/19 Unknown Rx NEBS] Hydrocortisone [Hydrocortisone 1 applicatio TP BID #1 oint...g. 06/24/19 Unknown Rx 2.5% OINT] Triamcinolone Acetonide 1 applic TP BID PRN #45 oint...g. 07/04/19 Unknown Rx [Triamcinolone Acetonide Oint 0.5%] predniSONE [Deltasone] 10 mg PO QDAY #5 tab 07/04/19 Unknown Rx Albuterol Mdi (or & Nicu Only) 2 puff IH QID PRN #1 inhalation 09/25/19 Unknown Rx [ProAir HFA Inhaler] Fluticasone/Salmeterol [Advair 1 puff IH BID #1 disk.w.dev 09/25/19 Unknown Rx Diskus 250-50 mcg] predniSONE [Deltasone] 40 mg PO QDAY #8 tablet 09/25/19 Unknown Rx Albuterol Mdi (or & Nicu Only) 2 puff IH QID PRN #1 inhalation 10/02/19 Unknown Rx [ProAir HFA Inhaler] Azithromycin [Zithromax Z-CELIA] 250 mg PO DAILY #6 tablet 10/02/19 Unknown Rx Benzonatate [Tessalon Perles] 100 mg PO Q8HR #30 capsule 10/02/19 Unknown Rx predniSONE [Deltasone] 3 tab PO QDAY 5 Days #15 tab 10/02/19 Unknown Rx Albuterol Mdi (or & Nicu Only) 2 puff IH QID PRN #8.5 gram 10/07/19 Unknown Rx [ProAir HFA Inhaler] levoFLOXacin [Levaquin TAB] 750 mg PO QDAY #7 tablet 10/07/19 Unknown Rx Albuterol Sulfate [Proventil Hfa] 1 - 2 puff IH Q6H PRN #1 hfa.aer.ad 06/03/20 Unknown Rx Triamcinolone Acetonide 1 applic TP BID #1 tube 06/03/20 Unknown Rx [Triamcinolone Acetonide Oint 0.5%] cephALEXin [Keflex] 500 mg PO Q6HR #40 capsule 06/03/20 Unknown Rx diphenhydrAMINE [Benadryl CAP] 25 mg PO Q6HR PRN #40 capsule 06/03/20 Unknown Rx predniSONE [Deltasone] 40 mg PO QDAY #14 tab 06/03/20 Unknown Rx Albuterol Mdi (or & Nicu Only) 2 puff IH QID PRN #1 inhalation 07/18/20 Unknown Rx [ProAir HFA Inhaler] predniSONE [Deltasone] 20 mg PO QDAY #5 tab 07/18/20 Unknown Rx Allergies Allergy/AdvReac Type Severity Reaction Status Date / Time grape Allergy Rash Verified 08/29/18 18:22 pet dander Allergy Rash Uncoded 12/25/16 20:36 pollen Allergy Unknown Uncoded 12/25/16 20:36 shrimp Allergy Rash Uncoded 12/25/16 20:36 ED Review of Systems ROS: Stated complaint: CASS Other details as noted in HPI Comment: All other systems reviewed and negative ED Past Medical Hx - Past Medical History Previous Medical History?: Yes Hx Hypertension: No Hx CVA: No Hx Psychiatric Treatment: (Pt denies - no EMR in ED) Hx Asthma: Yes Hx Tuberculosis: Yes Additional medical history: eczema - Surgical History Past Surgical History?: No - Social History Smoking Status: Never Smoker Substance Use Type: None - Medications Home Medications: Home Medications Medication Instructions Recorded Confirmed Last Taken Type ALBUTEROL NEB's [Proventil 0.083% 2.5 mg IH PRN PRN #1 pack 08/30/17 Unknown Rx NEBS] ALBUTEROL NEB's [Proventil 0.083% 2.5 mg IH PRN PRN 30 Days neb 10/08/17 Unknown Rx NEBS] Ibuprofen [Motrin 800 MG tab] 800 mg PO Q8HR PRN #20 tablet 11/24/17 Unknown Rx Albuterol Mdi (or & Nicu Only) 2 puff IH QID PRN #1 inhalation 01/03/18 Unknown Rx [ProAir HFA Inhaler] Albuterol Mdi (or & Nicu Only) 2 puff IH QID PRN #1 pump 01/06/18 Unknown Rx [ProAir HFA Inhaler] Prednisone [predniSONE 5 mg (6-Day 5 mg PO .TAPER #1 tab.ds.pk 01/06/18 Unknown Rx Pack, 21 Tabs)] Cyclobenzaprine HCl [Flexeril 5 MG 5 mg PO TID PRN #15 tab 04/28/18 Unknown Rx TAB] Ibuprofen [Motrin 800 MG tab] 800 mg PO Q8HR PRN #15 tablet 04/28/18 Unknown Rx Albuterol Sulfate [Ventolin HFA] 2 puff IH Q4H PRN #1 hfa.aer.ad 08/17/18 Unknown Rx ALBUTEROL Inhaler(NF) [VENTOLIN 1 puff IH Q4-6H PRN #1 inha 08/27/18 Unknown Rx Inhaler(NF)] Cyclobenzaprine [Flexeril] 10 mg PO QHS PRN #10 tablet 08/29/18 Unknown Rx Ibuprofen [Motrin] 600 mg PO Q8H PRN #20 tablet 08/29/18 Unknown Rx Albuterol Mdi (or & Nicu Only) 2 puff IH QID PRN #1 device 09/05/18 Unknown Rx [ProAir HFA Inhaler] ALBUTEROL Inhaler(NF) [VENTOLIN 2 puff IH Q4HR PRN #1 inha 09/12/18 Unknown Rx Inhaler(NF)] predniSONE [Deltasone] 50 mg PO QDAY #5 tab 09/12/18 Unknown Rx ALBUTEROL NEB's [Proventil 0.083% 2.5 mg IH TID PRN #1 box 06/24/19 Unknown Rx NEBS] Hydrocortisone [Hydrocortisone 1 applicatio TP BID #1 oint...g. 06/24/19 Unknown Rx 2.5% OINT] Triamcinolone Acetonide 1 applic TP BID PRN #45 oint...g. 07/04/19 Unknown Rx [Triamcinolone Acetonide Oint 0.5%] predniSONE [Deltasone] 10 mg PO QDAY #5 tab 07/04/19 Unknown Rx Albuterol Mdi (or & Nicu Only) 2 puff IH QID PRN #1 inhalation 09/25/19 Unknown Rx [ProAir HFA Inhaler] Fluticasone/Salmeterol [Advair 1 puff IH BID #1 disk.w.dev 09/25/19 Unknown Rx Diskus 250-50 mcg] predniSONE [Deltasone] 40 mg PO QDAY #8 tablet 09/25/19 Unknown Rx Albuterol Mdi (or & Nicu Only) 2 puff IH QID PRN #1 inhalation 10/02/19 Unknown Rx [ProAir HFA Inhaler] Azithromycin [Zithromax Z-CELIA] 250 mg PO DAILY #6 tablet 10/02/19 Unknown Rx Benzonatate [Tessalon Perles] 100 mg PO Q8HR #30 capsule 10/02/19 Unknown Rx predniSONE [Deltasone] 3 tab PO QDAY 5 Days #15 tab 10/02/19 Unknown Rx Albuterol Mdi (or & Nicu Only) 2 puff IH QID PRN #8.5 gram 10/07/19 Unknown Rx [ProAir HFA Inhaler] levoFLOXacin [Levaquin TAB] 750 mg PO QDAY #7 tablet 10/07/19 Unknown Rx Albuterol Sulfate [Proventil Hfa] 1 - 2 puff IH Q6H PRN #1 hfa.aer.ad 06/03/20 Unknown Rx Triamcinolone Acetonide 1 applic TP BID #1 tube 06/03/20 Unknown Rx [Triamcinolone Acetonide Oint 0.5%] cephALEXin [Keflex] 500 mg PO Q6HR #40 capsule 06/03/20 Unknown Rx diphenhydrAMINE [Benadryl CAP] 25 mg PO Q6HR PRN #40 capsule 06/03/20 Unknown Rx predniSONE [Deltasone] 40 mg PO QDAY #14 tab 06/03/20 Unknown Rx Albuterol Mdi (or & Nicu Only) 2 puff IH QID PRN #1 inhalation 07/18/20 Unknown Rx [ProAir HFA Inhaler] predniSONE [Deltasone] 20 mg PO QDAY #5 tab 07/18/20 Unknown Rx ED Physical Exam - General Limitations: No Limitations General appearance: alert, in no apparent distress - Head Head exam: Present: atraumatic, normocephalic - Eye Eye exam: Present: normal appearance - ENT ENT exam: Present: mucous membranes moist - Neck Neck exam: Present: normal inspection - Respiratory Respiratory exam: Present: respiratory distress, wheezes. Absent: normal lung sounds bilaterally, rales, rhonchi - Cardiovascular Cardiovascular Exam: Present: regular rate, normal rhythm, normal heart sounds. Absent: systolic murmur, diastolic murmur, rubs, gallop - GI/Abdominal GI/Abdominal exam: Present: soft, normal bowel sounds. Absent: distended, tenderness, guarding, rebound - Rectal Rectal exam: Present: deferred - Extremities Exam Extremities exam: Present: normal inspection - Back Exam Back exam: Present: normal inspection - Neurological Exam Neurological exam: Present: alert, oriented X3 - Psychiatric Psychiatric exam: Present: normal affect, normal mood - Skin Skin exam: Present: warm, dry, intact, normal color. Absent: rash ED Course Vital Signs 07/18/20 07/18/20 07/18/20 02:26 04:20 05:53 Temperature 98.1 F Pulse Rate 91 H 89 Respiratory 18 17 13 Rate Blood Pressure 131/91 Blood Pressure 122/80 [Left] O2 Sat by Pulse 95 100 100 Oximetry ED Medical Decision Making - Medical Decision Making Patient is a 25-year-old male with history of asthma, and wheezing. Patient given hour-long neb treatment steroids magnesium is feeling much improved. His O2 sat is 100% on room air. Patient be discharged home. Critical Care Time: Yes (30) Critical care attestation.: If time is entered above; I have spent that time in minutes in the direct care of this critically ill patient, excluding procedure time. ED Disposition Clinical Impression: Acute asthma exacerbation Qualifiers: Asthma severity: moderate Asthma persistence: unspecified Qualified Code(s): J45.901 - Unspecified asthma with (acute) exacerbation Disposition: - TO HOME OR SELFCARE Is pt being admited?: No Does the pt Need Aspirin: No Condition: Stable Instructions: Asthma (ED) Referrals: PRIMARY CARE, [Primary Care Provider] - 3-5 Days Time of Disposition: 08:04
== END 2020-07-18 08:58 | disposition home or self-care (01) ==
LOC: ED 02:16
DX: J45.901 Unspecified asthma with (acute) exacerbation (principal); Z86.11 Personal history of tuberculosis; Z79.1 Long term (current) use of non-steroidal anti-inflammatories (NSAID); Z79.899 Other long term (current) drug therapy; Z91.013 Allergy to seafood; Z91.018 Allergy to other foods; Z88.8 Allergy status to other drugs, medicaments and biological substances
CPT/HCPCS: 94640; 96365; 96375; 99283; J2930; J3475

== ENCOUNTER 2020-07-29 22:11 | Emergency (ER) | payer MEDICAID ==
[2020-07-29 23:20] VITALS: BP 131/78
[2020-07-29] MEDS ORDERED: oxyCODONE /ACETAMINOPHEN 5-325MG TAB PO ONE (23:21)
--- NOTE | 2020-07-29 23:34 | Emergency Department Report ---
ED General Adult HPI - General Chief complaint: Extremity Injury, Lower Stated complaint: RT KNEE PAINS Time Seen by Provider: 07/29/20 23:21 Source: patient Mode of arrival: Stretcher Limitations: Physical Limitation - History of Present Illness Initial comments: 25-year-old male present with chief complaint of right knee pain, sudden onset prior to arrival after doing a few back flips and twisting his knee. He reports associated swelling, pain with movement though states he is able to ambulate. Denies any numbness or tingling. Denies any other injuries. Pain is moderate to severe. Severity scale (0 -10): 5 - Related Data Previous Rx's Medication Instructions Recorded Last Taken Type ALBUTEROL NEB's [Proventil 0.083% 2.5 mg IH PRN PRN #1 pack 08/30/17 Unknown Rx NEBS] ALBUTEROL NEB's [Proventil 0.083% 2.5 mg IH PRN PRN 30 Days neb 10/08/17 Unknown Rx NEBS] Ibuprofen [Motrin 800 MG tab] 800 mg PO Q8HR PRN #20 tablet 11/24/17 Unknown Rx Albuterol Mdi (or & Nicu Only) 2 puff IH QID PRN #1 inhalation 01/03/18 Unknown Rx [ProAir HFA Inhaler] Albuterol Mdi (or & Nicu Only) 2 puff IH QID PRN #1 pump 01/06/18 Unknown Rx [ProAir HFA Inhaler] Prednisone [predniSONE 5 mg (6-Day 5 mg PO .TAPER #1 tab.ds.pk 01/06/18 Unknown Rx Pack, 21 Tabs)] Cyclobenzaprine HCl [Flexeril 5 MG 5 mg PO TID PRN #15 tab 04/28/18 Unknown Rx TAB] Ibuprofen [Motrin 800 MG tab] 800 mg PO Q8HR PRN #15 tablet 04/28/18 Unknown Rx Albuterol Sulfate [Ventolin HFA] 2 puff IH Q4H PRN #1 hfa.aer.ad 08/17/18 Unknown Rx ALBUTEROL Inhaler(NF) [VENTOLIN 1 puff IH Q4-6H PRN #1 inha 08/27/18 Unknown Rx Inhaler(NF)] Cyclobenzaprine [Flexeril] 10 mg PO QHS PRN #10 tablet 08/29/18 Unknown Rx Albuterol Mdi (or & Nicu Only) 2 puff IH QID PRN #1 device 09/05/18 Unknown Rx [ProAir HFA Inhaler] ALBUTEROL Inhaler(NF) [VENTOLIN 2 puff IH Q4HR PRN #1 inha 09/12/18 Unknown Rx Inhaler(NF)] predniSONE [Deltasone] 50 mg PO QDAY #5 tab 09/12/18 Unknown Rx ALBUTEROL NEB's [Proventil 0.083% 2.5 mg IH TID PRN #1 box 06/24/19 Unknown Rx NEBS] Hydrocortisone [Hydrocortisone 1 applicatio TP BID #1 oint...g. 06/24/19 Unknown Rx 2.5% OINT] Triamcinolone Acetonide 1 applic TP BID PRN #45 oint...g. 07/04/19 Unknown Rx [Triamcinolone Acetonide Oint 0.5%] predniSONE [Deltasone] 10 mg PO QDAY #5 tab 07/04/19 Unknown Rx Albuterol Mdi (or & Nicu Only) 2 puff IH QID PRN #1 inhalation 09/25/19 Unknown Rx [ProAir HFA Inhaler] Fluticasone/Salmeterol [Advair 1 puff IH BID #1 disk.w.dev 09/25/19 Unknown Rx Diskus 250-50 mcg] predniSONE [Deltasone] 40 mg PO QDAY #8 tablet 09/25/19 Unknown Rx Albuterol Mdi (or & Nicu Only) 2 puff IH QID PRN #1 inhalation 10/02/19 Unknown Rx [ProAir HFA Inhaler] Azithromycin [Zithromax Z-CELIA] 250 mg PO DAILY #6 tablet 10/02/19 Unknown Rx Benzonatate [Tessalon Perles] 100 mg PO Q8HR #30 capsule 10/02/19 Unknown Rx predniSONE [Deltasone] 3 tab PO QDAY 5 Days #15 tab 10/02/19 Unknown Rx Albuterol Mdi (or & Nicu Only) 2 puff IH QID PRN #8.5 gram 10/07/19 Unknown Rx [ProAir HFA Inhaler] levoFLOXacin [Levaquin TAB] 750 mg PO QDAY #7 tablet 10/07/19 Unknown Rx Albuterol Sulfate [Proventil Hfa] 1 - 2 puff IH Q6H PRN #1 hfa.aer.ad 06/03/20 Unknown Rx Triamcinolone Acetonide 1 applic TP BID #1 tube 06/03/20 Unknown Rx [Triamcinolone Acetonide Oint 0.5%] cephALEXin [Keflex] 500 mg PO Q6HR #40 capsule 06/03/20 Unknown Rx diphenhydrAMINE [Benadryl CAP] 25 mg PO Q6HR PRN #40 capsule 06/03/20 Unknown Rx predniSONE [Deltasone] 40 mg PO QDAY #14 tab 06/03/20 Unknown Rx Albuterol Mdi (or & Nicu Only) 2 puff IH QID PRN #1 inhalation 07/18/20 Unknown Rx [ProAir HFA Inhaler] predniSONE [Deltasone] 20 mg PO QDAY #5 tab 07/18/20 Unknown Rx Ibuprofen [Motrin 600 MG tab] 600 mg PO Q8H PRN #20 tablet 07/30/20 Unknown Rx traMADoL [Ultram 50 MG tab] 50 mg PO Q6HR PRN #12 tablet 07/30/20 Unknown Rx Allergies Allergy/AdvReac Type Severity Reaction Status Date / Time grape Allergy Rash Verified 08/29/18 18:22 pet dander Allergy Rash Uncoded 12/25/16 20:36 pollen Allergy Unknown Uncoded 12/25/16 20:36 shrimp Allergy Rash Uncoded 12/25/16 20:36 ED Review of Systems ROS: Stated complaint: RT KNEE PAINS Other details as noted in HPI Comment: All other systems reviewed and negative Musculoskeletal: as per HPI ED Past Medical Hx - Past Medical History Hx Hypertension: No Hx CVA: No Hx Psychiatric Treatment: (Pt denies - no EMR in ED) Hx Asthma: Yes Hx Tuberculosis: Yes Additional medical history: eczema - Social History Smoking Status: Never Smoker Substance Use Type: None - Medications Home Medications: Home Medications Medication Instructions Recorded Confirmed Last Taken Type ALBUTEROL NEB's [Proventil 0.083% 2.5 mg IH PRN PRN #1 pack 08/30/17 Unknown Rx NEBS] ALBUTEROL NEB's [Proventil 0.083% 2.5 mg IH PRN PRN 30 Days neb 10/08/17 Unknown Rx NEBS] Ibuprofen [Motrin 800 MG tab] 800 mg PO Q8HR PRN #20 tablet 11/24/17 Unknown Rx Albuterol Mdi (or & Nicu Only) 2 puff IH QID PRN #1 inhalation 01/03/18 Unknown Rx [ProAir HFA Inhaler] Albuterol Mdi (or & Nicu Only) 2 puff IH QID PRN #1 pump 01/06/18 Unknown Rx [ProAir HFA Inhaler] Prednisone [predniSONE 5 mg (6-Day 5 mg PO .TAPER #1 tab.ds.pk 01/06/18 Unknown Rx Pack, 21 Tabs)] Cyclobenzaprine HCl [Flexeril 5 MG 5 mg PO TID PRN #15 tab 04/28/18 Unknown Rx TAB] Ibuprofen [Motrin 800 MG tab] 800 mg PO Q8HR PRN #15 tablet 04/28/18 Unknown Rx Albuterol Sulfate [Ventolin HFA] 2 puff IH Q4H PRN #1 hfa.aer.ad 08/17/18 Unknown Rx ALBUTEROL Inhaler(NF) [VENTOLIN 1 puff IH Q4-6H PRN #1 inha 08/27/18 Unknown Rx Inhaler(NF)] Cyclobenzaprine [Flexeril] 10 mg PO QHS PRN #10 tablet 08/29/18 Unknown Rx Albuterol Mdi (or & Nicu Only) 2 puff IH QID PRN #1 device 09/05/18 Unknown Rx [ProAir HFA Inhaler] ALBUTEROL Inhaler(NF) [VENTOLIN 2 puff IH Q4HR PRN #1 inha 09/12/18 Unknown Rx Inhaler(NF)] predniSONE [Deltasone] 50 mg PO QDAY #5 tab 09/12/18 Unknown Rx ALBUTEROL NEB's [Proventil 0.083% 2.5 mg IH TID PRN #1 box 06/24/19 Unknown Rx NEBS] Hydrocortisone [Hydrocortisone 1 applicatio TP BID #1 oint...g. 06/24/19 Un known Rx 2.5% OINT] Triamcinolone Acetonide 1 applic TP BID PRN #45 oint...g. 07/04/19 Unknown Rx [Triamcinolone Acetonide Oint 0.5%] predniSONE [Deltasone] 10 mg PO QDAY #5 tab 07/04/19 Unknown Rx Albuterol Mdi (or & Nicu Only) 2 puff IH QID PRN #1 inhalation 09/25/19 Unknown Rx [ProAir HFA Inhaler] Fluticasone/Salmeterol [Advair 1 puff IH BID #1 disk.w.dev 09/25/19 Unknown Rx Diskus 250-50 mcg] predniSONE [Deltasone] 40 mg PO QDAY #8 tablet 09/25/19 Unknown Rx Albuterol Mdi (or & Nicu Only) 2 puff IH QID PRN #1 inhalation 10/02/19 Unknown Rx [ProAir HFA Inhaler] Azithromycin [Zithromax Z-CELIA] 250 mg PO DAILY #6 tablet 10/02/19 Unknown Rx Benzonatate [Tessalon Perles] 100 mg PO Q8HR #30 capsule 10/02/19 Unknown Rx predniSONE [Deltasone] 3 tab PO QDAY 5 Days #15 tab 10/02/19 Unknown Rx Albuterol Mdi (or & Nicu Only) 2 puff IH QID PRN #8.5 gram 10/07/19 Unknown Rx [ProAir HFA Inhaler] levoFLOXacin [Levaquin TAB] 750 mg PO QDAY #7 tablet 10/07/19 Unknown Rx Albuterol Sulfate [Proventil Hfa] 1 - 2 puff IH Q6H PRN #1 hfa.aer.ad 06/03/20 Unknown Rx Triamcinolone Acetonide 1 applic TP BID #1 tube 06/03/20 Unknown Rx [Triamcinolone Acetonide Oint 0.5%] cephALEXin [Keflex] 500 mg PO Q6HR #40 capsule 06/03/20 Unknown Rx diphenhydrAMINE [Benadryl CAP] 25 mg PO Q6HR PRN #40 capsule 06/03/20 Unknown Rx predniSONE [Deltasone] 40 mg PO QDAY #14 tab 06/03/20 Unknown Rx Albuterol Mdi (or & Nicu Only) 2 puff IH QID PRN #1 inhalation 07/18/20 Unknown Rx [ProAir HFA Inhaler] predniSONE [Deltasone] 20 mg PO QDAY #5 tab 07/18/20 Unknown Rx Ibuprofen [Motrin 600 MG tab] 600 mg PO Q8H PRN #20 tablet 07/30/20 Unknown Rx traMADoL [Ultram 50 MG tab] 50 mg PO Q6HR PRN #12 tablet 07/30/20 Unknown Rx ED Physical Exam - General Limitations: Physical Limitation General appearance: alert, in no apparent distress - Head Head exam: Present: atraumatic, normocephalic - Eye Eye exam: Present: normal appearance - ENT ENT exam: Present: mucous membranes moist - Neck Neck exam: Present: normal inspection - Extremities Exam Extremities exam: Present: other (Right knee is diffusely swollen and tender, exam more distal and proximal is normal, intact distal pulses, painful range of motion of the knee.) - Back Exam Back exam: Present: normal inspection - Neurological Exam Neurological exam: Present: alert, oriented X3 - Psychiatric Psychiatric exam: Present: normal affect, normal mood - Skin Skin exam: Present: warm, dry, intact, normal color. Absent: rash ED Course Vital Signs 07/29/20 23:19 Pulse Rate 94 H Respiratory 19 Rate Blood Pressure 131/78 [Right] O2 Sat by Pulse 99 Oximetry ED Medical Decision Making - Radiology Data Radiology results: report reviewed Knee films show no fracture but does show a small knee joint effusion - Medical Decision Making Patient presenting with right knee pain. Right knee is diffusely swollen and tender, exam more distal and proximal is normal, intact distal pulses, painful range of motion of the knee. X-ray pending. Patient given Percocet for pain. No fracture on x-ray but does show a small effusion. Knee immobilizer placed and he will be given crutches and referred to orthopedics. - Differential Diagnosis Sprain, fracture Critical care attestation.: If time is entered above; I have spent that time in minutes in the direct care of this critically ill patient, excluding procedure time. ED Disposition Clinical Impression: Right knee sprain Qualifiers: Encounter type: initial encounter Involved ligament of knee: unspecified ligament Qualified Code(s): S83.91XA - Sprain of unspecified site of right knee, initial encounter Disposition: TO HOME OR SELFCARE Is pt being admited?: No Condition: Good Instructions: Knee Sprain, Adult Prescriptions: Ibuprofen [Motrin 600 MG tab] 600 mg PO Q8H PRN #20 tablet PRN Reason: Pain traMADoL [Ultram 50 MG tab] 50 mg PO Q6HR PRN #12 tablet PRN Reason: Pain [facility]: [facility] MD MICA [Primary Care Provider] - 3-5 Days ANTON LOPEZ MD [Staff Physician] - 3-5 Days Time of Disposition: 00:17
--- NOTE | 2020-07-30 00:13 | XRay Report ---
Right knee 3 views INDICATION: Right knee pain. IMPRESSION: No fracture or subluxation is identified. Minimal knee effusion. Signer Name: Shiva Lofton MD Signed: 07/30/2020 12:09 AM Workstation Name: [id number]
== END 2020-07-30 00:30 | disposition home or self-care (01) ==
LOC: ED 22:11
DX: S83.91XA Sprain of unspecified site of right knee, initial encounter (principal); J45.909 Unspecified asthma, uncomplicated; X50.9XXA Other and unspecified overexertion or strenuous movements or postures, initial encounter; Y93.89 Activity, other specified; Y92.89 Other specified places as the place of occurrence of the external cause; Y99.8 Other external cause status

== ENCOUNTER 2020-08-20 17:00 | Emergency (ER) | payer MEDICAID ==
[2020-08-20 17:24] VITALS: BP 115/71
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
== END 2020-08-20 18:00 | disposition left against medical advice (07) ==
LOC: ED 17:00
DX: M79.602 Pain in left arm (principal); Z53.21 Procedure and treatment not carried out due to patient leaving prior to being seen by health care provider

== ENCOUNTER 2021-06-29 05:04 | Emergency (ER) | payer MEDICAID ==
[2021-06-29 05:15] VITALS: BP 124/77
[2021-06-29] MEDS ORDERED: predniSONE 20 MG TAB PO ONE (05:31)
[2021-06-29] MEDS ORDERED: ALBUTEROL 2.5 MG/3 ML NEBU IH ONE (05:31)
--- NOTE | 2021-06-29 06:36 | Emergency Department Report ---
ED Asthma HPI - General Chief Complaint: Adult Asthma Stated Complaint: ASTHMA Time Seen by Provider: 06/29/21 05:57 Source: patient Mode of arrival: Ambulatory Limitations: No Limitations - History of Present Illness Initial Comments: Patient 26-year-old male with a history of asthma states out of albuterol inhaler. Presents with primary symptom expiratory wheezing that started yesterday. Rates symptoms at 4/10. Question refill of albuterol inhaler. Is been no fevers no chills no nausea no vomiting no dizziness or lightheadedness. No chest pain. Patient denies other symptoms patient does have a PCP however has been unable to get appointment. Patient with no acute distress at this time. MD Complaint: wheezing - Related Data Previous Rx's Medication Instructions Recorded Last Taken Type ALBUTEROL NEB's [Proventil 0.083% 2.5 mg IH PRN PRN #1 pack 08/30/17 Unknown Rx NEBS] ALBUTEROL NEB's [Proventil 0.083% 2.5 mg IH PRN PRN 30 Days neb 10/08/17 Unknown Rx NEBS] Ibuprofen [Motrin 800 MG tab] 800 mg PO Q8HR PRN #20 tablet 11/24/17 Unknown Rx Albuterol Mdi (or & Nicu Only) 2 puff IH QID PRN #1 inhalation 01/03/18 Unknown Rx [ProAir HFA Inhaler] Albuterol Mdi (or & Nicu Only) 2 puff IH QID PRN #1 pump 01/06/18 Unknown Rx [ProAir HFA Inhaler] Prednisone [predniSONE 5 mg (6-Day 5 mg PO .TAPER #1 tab.ds.pk 01/06/18 Unknown Rx Pack, 21 Tabs)] Cyclobenzaprine HCl [Flexeril 5 MG 5 mg PO TID PRN #15 tab 04/28/18 Unknown Rx TAB] Ibuprofen [Motrin 800 MG tab] 800 mg PO Q8HR PRN #15 tablet 04/28/18 Unknown Rx Albuterol Sulfate [Ventolin HFA] 2 puff IH Q4H PRN #1 hfa.aer.ad 08/17/18 Unknown Rx ALBUTEROL Inhaler(NF) [VENTOLIN 1 puff IH Q4-6H PRN #1 inha 08/27/18 Unknown Rx Inhaler(NF)] Cyclobenzaprine [Flexeril] 10 mg PO QHS PRN #10 tablet 08/29/18 Unknown Rx Albuterol Mdi (or & Nicu Only) 2 puff IH QID PRN #1 device 09/05/18 Unknown Rx [ProAir HFA Inhaler] ALBUTEROL Inhaler(NF) [VENTOLIN 2 puff IH Q4HR PRN #1 inha 09/12/18 Unknown Rx Inhaler(NF)] predniSONE [Deltasone] 50 mg PO QDAY #5 tab 09/12/18 Unknown Rx ALBUTEROL NEB's [Proventil 0.083% 2.5 mg IH TID PRN #1 box 06/24/19 Unknown Rx NEBS] Hydrocortisone [Hydrocortisone 1 applicatio TP BID #1 oint...g. 06/24/19 Unknown Rx 2.5% OINT] Triamcinolone Acetonide 1 applic TP BID PRN #45 oint...g. 07/04/19 Unknown Rx [Triamcinolone Acetonide Oint 0.5%] predniSONE 10 mg PO QDAY #5 tab 07/04/19 Unknown Rx Albuterol Mdi (or & Nicu Only) 2 puff IH QID PRN #1 inhalation 09/25/19 Unknown Rx [ProAir HFA Inhaler] Fluticasone/Salmeterol [Advair 1 puff IH BID #1 disk.w.dev 09/25/19 Unknown Rx Diskus 250-50 mcg] predniSONE [Deltasone] 40 mg PO QDAY #8 tablet 09/25/19 Unknown Rx Albuterol Mdi (or & Nicu Only) 2 puff IH QID PRN #1 inhalation 10/02/19 Unknown Rx [ProAir HFA Inhaler] Azithromycin [Zithromax Z-CELIA] 250 mg PO DAILY #6 tablet 10/02/19 Unknown Rx Benzonatate [Tessalon Perles] 100 mg PO Q8HR #30 capsule 10/02/19 Unknown Rx predniSONE [Deltasone] 3 tab PO QDAY 5 Days #15 tab 10/02/19 Unknown Rx Albuterol Mdi (or & Nicu Only) 2 puff IH QID PRN #8.5 gram 10/07/19 Unknown Rx [ProAir HFA Inhaler] levoFLOXacin [Levaquin TAB] 750 mg PO QDAY #7 tablet 10/07/19 Unknown Rx Albuterol Sulfate [Proventil Hfa] 1 - 2 puff IH Q6H PRN #1 hfa.aer.ad 06/03/20 Unknown Rx Triamcinolone Acetonide 1 applic TP BID #1 tube 06/03/20 Unknown Rx [Triamcinolone Acetonide Oint 0.5%] cephALEXin [Keflex] 500 mg PO Q6HR #40 capsule 06/03/20 Unknown Rx diphenhydrAMINE [Benadryl CAP] 25 mg PO Q6HR PRN #40 capsule 06/03/20 Unknown Rx predniSONE [Deltasone] 40 mg PO QDAY #14 tab 06/03/20 Unknown Rx Albuterol Mdi (or & Nicu Only) 2 puff IH QID PRN #1 inhalation 07/18/20 Unknown Rx [ProAir HFA Inhaler] predniSONE [Deltasone] 20 mg PO QDAY #5 tab 07/18/20 Unknown Rx Ibuprofen [Motrin 600 MG tab] 600 mg PO Q8H PRN #20 tablet 07/30/20 Unknown Rx traMADoL [Ultram 50 MG tab] 50 mg PO Q6HR PRN #12 tablet 07/30/20 Unknown Rx Albuterol Mdi (or & Nicu Only) 2 puff IH QID PRN #8.5 gram 06/29/21 Unknown Rx [ProAir HFA Inhaler] predniSONE [Deltasone] 40 mg PO QDAY 5 Days #10 tab 06/29/21 Unknown Rx Allergies Allergy/AdvReac Type Severity Reaction Status Date / Time grape Allergy Rash Verified 08/20/20 17:21 pet dander Allergy Rash Uncoded 12/25/16 20:36 pollen Allergy Unknown Uncoded 12/25/16 20:36 shrimp Allergy Rash Uncoded 12/25/16 20:36 ED Review of Systems ROS: Stated complaint: ASTHMA Other details as noted in HPI Constitutional: denies: chills, fever Eyes: denies: eye pain, eye discharge, vision change ENT: denies: ear pain, throat pain Respiratory: cough (nonproductive ), shortness of breath, wheezing Cardiovascular: denies: chest pain, palpitations Endocrine: no symptoms reported Gastrointestinal: denies: abdominal pain, nausea, vomiting, diarrhea Genitourinary: denies: urgency, dysuria Musculoskeletal: denies: back pain, joint swelling, arthralgia Skin: denies: rash, lesions Neurological: denies: headache, weakness, paresthesias Psychiatric: denies: anxiety, depression Hematological/Lymphatic: denies: easy bleeding, easy bruising ED Past Medical Hx - Past Medical History Previous Medical History?: Yes Hx Hypertension: No Hx CVA: No Hx Psychiatric Treatment: (Pt denies - no EMR in ED) Hx Asthma: Yes Hx Tuberculosis: Yes Additional medical history: eczema - Surgical History Past Surgical History?: No - Social History Smoking Status: Never Smoker Substance Use Type: None - Medications Home Medications: Home Medications Medication Instructions Recorded Confirmed Last Taken Type ALBUTEROL NEB's [Proventil 0.083% 2.5 mg IH PRN PRN #1 pack 08/30/17 Unknown Rx NEBS] ALBUTEROL NEB's [Proventil 0.083% 2.5 mg IH PRN PRN 30 Days neb 10/08/17 Unknown Rx NEBS] Ibuprofen [Motrin 800 MG tab] 800 mg PO Q8HR PRN #20 tablet 11/24/17 Unknown Rx Albuterol Mdi (or & Nicu Only) 2 puff IH QID PRN #1 inhalation 01/03/18 Unknown Rx [ProAir HFA Inhaler] Albuterol Mdi (or & Nicu Only) 2 puff IH QID PRN #1 pump 01/06/18 Unknown Rx [ProAir HFA Inhaler] Prednisone [predniSONE 5 mg (6-Day 5 mg PO .TAPER #1 tab.ds.pk 01/06/18 Unknown Rx Pack, 21 Tabs)] Cyclobenzaprine HCl [Flexeril 5 MG 5 mg PO TID PRN #15 tab 04/28/18 Unknown Rx TAB] Ibuprofen [Motrin 800 MG tab] 800 mg PO Q8HR PRN #15 tablet 04/28/18 Unknown Rx Albuterol Sulfate [Ventolin HFA] 2 puff IH Q4H PRN #1 hfa.aer.ad 08/17/18 U nknown Rx ALBUTEROL Inhaler(NF) [VENTOLIN 1 puff IH Q4-6H PRN #1 inha 08/27/18 Unknown Rx Inhaler(NF)] Cyclobenzaprine [Flexeril] 10 mg PO QHS PRN #10 tablet 08/29/18 Unknown Rx Albuterol Mdi (or & Nicu Only) 2 puff IH QID PRN #1 device 09/05/18 Unknown Rx [ProAir HFA Inhaler] ALBUTEROL Inhaler(NF) [VENTOLIN 2 puff IH Q4HR PRN #1 inha 09/12/18 Unknown Rx Inhaler(NF)] predniSONE [Deltasone] 50 mg PO QDAY #5 tab 09/12/18 Unknown Rx ALBUTEROL NEB's [Proventil 0.083% 2.5 mg IH TID PRN #1 box 06/24/19 Unknown Rx NEBS] Hydrocortisone [Hydrocortisone 1 applicatio TP BID #1 oint...g. 06/24/19 Unknown Rx 2.5% OINT] Triamcinolone Acetonide 1 applic TP BID PRN #45 oint...g. 07/04/19 Unknown Rx [Triamcinolone Acetonide Oint 0.5%] predniSONE 10 mg PO QDAY #5 tab 07/04/19 Unknown Rx Albuterol Mdi (or & Nicu Only) 2 puff IH QID PRN #1 inhalation 09/25/19 Unknown Rx [ProAir HFA Inhaler] Fluticasone/Salmeterol [Advair 1 puff IH BID #1 disk.w.dev 09/25/19 Unknown Rx Diskus 250-50 mcg] predniSONE [Deltasone] 40 mg PO QDAY #8 tablet 09/25/19 Unknown Rx Albuterol Mdi (or & Nicu Only) 2 puff IH QID PRN #1 inhalation 10/02/19 Unknown Rx [ProAir HFA Inhaler] Azithromycin [Zithromax Z-CELIA] 250 mg PO DAILY #6 tablet 10/02/19 Unknown Rx Benzonatate [Tessalon Perles] 100 mg PO Q8HR #30 capsule 10/02/19 Unknown Rx predniSONE [Deltasone] 3 tab PO QDAY 5 Days #15 tab 10/02/19 Unknown Rx Albuterol Mdi (or & Nicu Only) 2 puff IH QID PRN #8.5 gram 10/07/19 Unknown Rx [ProAir HFA Inhaler] levoFLOXacin [Levaquin TAB] 750 mg PO QDAY #7 tablet 10/07/19 Unknown Rx Albuterol Sulfate [Proventil Hfa] 1 - 2 puff IH Q6H PRN #1 hfa.aer.ad 06/03/20 Unknown Rx Triamcinolone Acetonide 1 applic TP BID #1 tube 06/03/20 Unknown Rx [Triamcinolone Acetonide Oint 0.5%] cephALEXin [Keflex] 500 mg PO Q6HR #40 capsule 06/03/20 Unknown Rx diphenhydrAMINE [Benadryl CAP] 25 mg PO Q6HR PRN #40 capsule 06/03/20 Unknown Rx predniSONE [Deltasone] 40 mg PO QDAY #14 tab 06/03/20 Unknown Rx Albuterol Mdi (or & Nicu Only) 2 puff IH QID PRN #1 inhalation 07/18/20 Unknown Rx [ProAir HFA Inhaler] predniSONE [Deltasone] 20 mg PO QDAY #5 tab 07/18/20 Unknown Rx Ibuprofen [Motrin 600 MG tab] 600 mg PO Q8H PRN #20 tablet 07/30/20 Unknown Rx traMADoL [Ultram 50 MG tab] 50 mg PO Q6HR PRN #12 tablet 07/30/20 Unknown Rx Albuterol Mdi (or & Nicu Only) 2 puff IH QID PRN #8.5 gram 06/29/21 Unknown Rx [ProAir HFA Inhaler] predniSONE [Deltasone] 40 mg PO QDAY 5 Days #10 tab 06/29/21 Unknown Rx ED Physical Exam - General Limitations: No Limitations General appearance: alert, in no apparent distress - Head Head exam: Present: atraumatic, normocephalic - Eye Eye exam: Present: normal appearance, EOMI Pupils: Present: normal accommodation - ENT ENT exam: Present: mucous membranes moist - Neck Neck exam: Present: normal inspection, full ROM. Absent: tenderness - Respiratory Respiratory exam: Present: wheezes. Absent: respiratory distress, rales, rhonchi, stridor, chest wall tenderness - Cardiovascular Cardiovascular Exam: Present: regular rate, normal rhythm, normal heart sounds. Absent: systolic murmur, diastolic murmur, rubs, gallop - GI/Abdominal GI/Abdominal exam: Present: soft, normal bowel sounds. Absent: distended, tenderness - Rectal Rectal exam: Present: deferred - Extremities Exam Extremities exam: Present: normal inspection, full ROM, normal capillary refill. Absent: tenderness - Back Exam Back exam: Present: normal inspection, full ROM. Absent: tenderness - Neurological Exam Neurological exam: Present: alert, oriented X3 - Psychiatric Psychiatric exam: Present: normal affect, normal mood - Skin Skin exam: Present: warm, dry, intact, normal color. Absent: rash ED Course Vital Signs 06/29/21 05:12 Temperature 97.7 F Pulse Rate 68 Respiratory 18 Rate Blood Pressure 124/77 O2 Sat by Pulse 99 Oximetry ED Medical Decision Making - Medical Decision Making There is mild expiratory wheezes O2 sat noted at 98% on room air however with respiratory rate of 17. Patient with no acute distress. Plan refill medications. Follow-up with primary care doctor as scheduled in 2 days. Aylin ent verbalizes agreement and understanding with discharge plan. Patient will be DC'd home in stable condition at this time.. Critical care attestation.: If time is entered above; I have spent that time in minutes in the direct care of this critically ill patient, excluding procedure time. ED Disposition Clinical Impression: Asthma Qualifiers: Asthma severity: mild Asthma persistence: intermittent Asthma complication type: uncomplicated Qualified Code(s): J45.20 - Mild intermittent asthma, uncomplicated Disposition: HOME / SELF CARE / HOMELESS Is pt being admited?: No Does the pt Need Aspirin: No Condition: Stable Instructions: Asthma (ED), Asthma, Adult Additional Instructions: Take all medications as prescribed, follow-up with your doctor in 2 to 3 days. Return to emergency should symptoms worsen. Prescriptions: predniSONE [Deltasone] 40 mg PO QDAY 5 Days #10 tab Albuterol Mdi (or & Nicu Only) [ProAir HFA Inhaler] 2 puff IH QID PRN #8.5 gram PRN Reason: Shortness Of Breath Referrals: MESSI HA MD [Referring] - 3-5 Days Forms: Work/School Release Form(ED) Time of Disposition: 06:37
== END 2021-06-29 06:53 | disposition home or self-care (01) ==
LOC: ED 05:04
DX: J45.909 Unspecified asthma, uncomplicated (principal)
CPT/HCPCS: 94640; 99282; J7512

== ENCOUNTER 2021-07-19 02:15 | Emergency (ER) | payer MEDICAID ==
[2021-07-19 02:23] VITALS: BP 138/82
[2021-07-19] MEDS ORDERED: IBUPROFEN 800 MG TAB PO ONE (07:34)
--- NOTE | 2021-07-19 08:07 | XRay Report ---
RIGHT FOOT HISTORY: Dropped heavy object on first toe. COMPARISON: None. TECHNIQUE: 3 views of the right foot were obtained. FINDINGS: Bones: Comminuted mildly displaced fracture through the proximal and middle portion of the first dist al phalanx. Joint spaces: Maintained. Soft tissues: No significant abnormality. Additional findings: None. IMPRESSION: Comminuted mildly displaced fracture at the proximal and midportion of the right first distal phalanx . Signer Name: Yonis Zurita MD Signed: 07/19/2021 8:03 AM Workstation Name: [id number]
--- NOTE | 2021-07-19 08:26 | Emergency Department Report ---
ED Lower Extremity HPI - General Chief Complaint: Extremity Injury, Lower Stated Complaint: TOE PAIN Time Seen by Provider: 07/19/21 07:30 Source: EMS Mode of arrival: Stretcher Limitations: No Limitations - History of Present Illness Initial Comments: This is a 26-year-old male nontoxic, well nourished in appearance, no acute signs of distress presents to the ED with c/o of left great toe pain and swelling x 5 days. Patient stated that he dropped a sheet rock while at work. Patient denies any other injuries or trauma. Patient denies any numbness, tingling, fever, chills, nausea, vomiting, chest pain, shortness of breath, headache, stiff neck. Patient denies any joint swelling or joint redness. Patient denies decreased range of motion. Patient stated has decreased gait due to pain. Patient denies any allergies or significant past medical history. MD Complaint: foot injury -: days(s) Injury: Toes: Left Place: work Severity: mild Severity scale (0 -10): 8 Improves With: immobilization Worsens With: weight bearing, movement, palpation Associated Symptoms: swelling, able to partially bear weight. denies: snap/pop sensation, numbness, tingling, unable to bear weight - Related Data Previous Rx's Medication Instructions Recorded Last Taken Type ALBUTEROL NEB's [Proventil 0.083% 2.5 mg IH PRN PRN #1 pack 08/30/17 Unknown Rx NEBS] ALBUTEROL NEB's [Proventil 0.083% 2.5 mg IH PRN PRN 30 Days neb 10/08/17 Unknown Rx NEBS] Ibuprofen [Motrin 800 MG tab] 800 mg PO Q8HR PRN #20 tablet 11/24/17 Unknown Rx Albuterol Mdi (or & Nicu Only) 2 puff IH QID PRN #1 inhalation 01/03/18 Unknown Rx [ProAir HFA Inhaler] Albuterol Mdi (or & Nicu Only) 2 puff IH QID PRN #1 pump 01/06/18 Unknown Rx [ProAir HFA Inhaler] Prednisone [predniSONE 5 mg (6-Day 5 mg PO .TAPER #1 tab.ds.pk 01/06/18 Unknown Rx Pack, 21 Tabs)] Cyclobenzaprine HCl [Flexeril 5 MG 5 mg PO TID PRN #15 tab 04/28/18 Unknown Rx TAB] Ibuprofen [Motrin 800 MG tab] 800 mg PO Q8HR PRN #15 tablet 04/28/18 Unknown Rx Albuterol Sulfate [Ventolin HFA] 2 puff IH Q4H PRN #1 hfa.aer.ad 08/17/18 Unknown Rx ALBUTEROL Inhaler(NF) [VENTOLIN 1 puff IH Q4-6H PRN #1 inha 08/27/18 Unknown Rx Inhaler(NF)] Cyclobenzaprine [Flexeril] 10 mg PO QHS PRN #10 tablet 08/29/18 Unknown Rx Albuterol Mdi (or & Nicu Only) 2 puff IH QID PRN #1 device 09/05/18 Unknown Rx [ProAir HFA Inhaler] ALBUTEROL Inhaler(NF) [VENTOLIN 2 puff IH Q4HR PRN #1 inha 09/12/18 Unknown Rx Inhaler(NF)] predniSONE [Deltasone] 50 mg PO QDAY #5 tab 09/12/18 Unknown Rx ALBUTEROL NEB's [Proventil 0.083% 2.5 mg IH TID PRN #1 box 06/24/19 Unknown Rx NEBS] Hydrocortisone [Hydrocortisone 1 applicatio TP BID #1 oint...g. 06/24/19 Unknown Rx 2.5% OINT] Triamcinolone Acetonide 1 applic TP BID PRN #45 oint...g. 07/04/19 Unknown Rx [Triamcinolone Acetonide Oint 0.5%] predniSONE 10 mg PO QDAY #5 tab 07/04/19 Unknown Rx Albuterol Mdi (or & Nicu Only) 2 puff IH QID PRN #1 inhalation 09/25/19 Unknown Rx [ProAir HFA Inhaler] Fluticasone/Salmeterol [Advair 1 puff IH BID #1 disk.w.dev 09/25/19 Unknown Rx Diskus 250-50 mcg] predniSONE [Deltasone] 40 mg PO QDAY #8 tablet 09/25/19 Unknown Rx Albuterol Mdi (or & Nicu Only) 2 puff IH QID PRN #1 inhalation 10/02/19 Unknown Rx [ProAir HFA Inhaler] Azithromycin [Zithromax Z-CELIA] 250 mg PO DAILY #6 tablet 10/02/19 Unknown Rx Benzonatate [Tessalon Perles] 100 mg PO Q8HR #30 capsule 10/02/19 Unknown Rx predniSONE [Deltasone] 3 tab PO QDAY 5 Days #15 tab 10/02/19 Unknown Rx Albuterol Mdi (or & Nicu Only) 2 puff IH QID PRN #8.5 gram 10/07/19 Unknown Rx [ProAir HFA Inhaler] levoFLOXacin [Levaquin TAB] 750 mg PO QDAY #7 tablet 10/07/19 Unknown Rx Albuterol Sulfate [Proventil Hfa] 1 - 2 puff IH Q6H PRN #1 hfa.aer.ad 06/03/20 Unknown Rx Triamcinolone Acetonide 1 applic TP BID #1 tube 06/03/20 Unknown Rx [Triamcinolone Acetonide Oint 0.5%] cephALEXin [Keflex] 500 mg PO Q6HR #40 capsule 06/03/20 Unknown Rx diphenhydrAMINE [Benadryl CAP] 25 mg PO Q6HR PRN #40 capsule 06/03/20 Unknown Rx predniSONE [Deltasone] 40 mg PO QDAY #14 tab 06/03/20 Unknown Rx Albuterol Mdi (or & Nicu Only) 2 puff IH QID PRN #1 inhalation 07/18/20 Unknown Rx [ProAir HFA Inhaler] predniSONE [Deltasone] 20 mg PO QDAY #5 tab 07/18/20 Unknown Rx Ibuprofen [Motrin 600 MG tab] 600 mg PO Q8H PRN #20 tablet 07/30/20 Unknown Rx traMADoL [Ultram 50 MG tab] 50 mg PO Q6HR PRN #12 tablet 07/30/20 Unknown Rx Albuterol Mdi (or & Nicu Only) 2 puff IH QID PRN #8.5 gram 06/29/21 Unknown Rx [ProAir HFA Inhaler] predniSONE [Deltasone] 40 mg PO QDAY 5 Days #10 tab 06/29/21 Unknown Rx Naproxen 500 mg PO Q12H PRN #12 tablet 07/19/21 Unknown Rx Allergies Allergy/AdvReac Type Severity Reaction Status Date / Time grape Allergy Rash Verified 07/19/21 02:22 pet dander Allergy Rash Uncoded 12/25/16 20:36 pollen Allergy Unknown Uncoded 12/25/16 20:36 shrimp Allergy Rash Uncoded 12/25/16 20:36 ED Review of Systems ROS: Stated complaint: TOE PAIN Other details as noted in HPI Comment: All other systems reviewed and negative Constitutional: denies: chills, fever Eyes: denies: eye pain, eye discharge, vision change ENT: denies: ear pain, throat pain Respiratory: denies: cough, shortness of breath, wheezing Cardiovascular: denies: chest pain, palpitations Endocrine: no symptoms reported Gastrointestinal: denies: abdominal pain, nausea, diarrhea Genitourinary: denies: urgency, dysuria Musculoskeletal: denies: back pain, joint swelling, arthralgia Skin: denies: rash, lesions Neurological: denies: headache, weakness, paresthesias Psychiatric: denies: anxiety, depression Hematological/Lymphatic: denies: easy bleeding, easy bruising ED Past Medical Hx - Past Medical History Hx Hypertension: No Hx CVA: No Hx Psychiatric Treatment: (Pt denies - no EMR in ED) Hx Asthma: Yes Hx Tuberculosis: Yes Additional medical history: eczema - Social History Smoking Status: Never Smoker Substance Use Type: None - Medications Home Medications: Home Medications Medication Instructions Recorded Confirmed Last Taken Type ALBUTEROL NEB's [Proventil 0.083% 2.5 mg IH PRN PRN #1 pack 08/30/17 Unknown Rx NEBS] ALBUTEROL NEB's [Proventil 0.083% 2.5 mg IH PRN PRN 30 Days neb 10/08/17 Unknown Rx NEBS] Ibuprofen [Motrin 800 MG tab] 800 mg PO Q8HR PRN #20 tablet 11/24/17 Unknown Rx Albuterol Mdi (or & Nicu Only) 2 puff IH QID PRN #1 inhalation 01/03/18 Unknown Rx [ProAir HFA Inhaler] Albuterol Mdi (or & Nicu Only) 2 puff IH QID PRN #1 pump 01/06/18 Unknown Rx [ProAir HFA Inhaler] Prednisone [predniSONE 5 mg (6-Day 5 mg PO .TAPER #1 tab.ds.pk 01/06/18 Unknown Rx Pack, 21 Tabs)] Cyclobenzaprine HCl [Flexeril 5 MG 5 mg PO TID PRN #15 tab 04/28/18 Unknown Rx TAB] Ibuprofen [Motrin 800 MG tab] 800 mg PO Q8HR PRN #15 tablet 04/28/18 Unknown Rx Albuterol Sulfate [Ventolin HFA] 2 puff IH Q4H PRN #1 hfa.aer.ad 08/17/18 Unknown Rx ALBUTEROL Inhaler(NF) [VENTOLIN 1 puff IH Q4-6H PRN #1 inha 08/27/18 Unknown Rx Inhaler(NF)] Cyclobenzaprine [Flexeril] 10 mg PO QHS PRN #10 tablet 08/29/18 Unknown Rx Albuterol Mdi (or & Nicu Only) 2 puff IH QID PRN #1 device 09/05/18 Unknown Rx [ProAir HFA Inhaler] ALBUTEROL Inhaler(NF) [VENTOLIN 2 puff IH Q4HR PRN #1 inha 09/12/18 Unknown Rx Inhaler(NF)] predniSONE [Deltasone] 50 mg PO QDAY #5 tab 09/12/18 Unknown Rx ALBUTEROL NEB's [Proventil 0.083% 2.5 mg IH TID PRN #1 box 06/24/19 Unknown Rx NEBS] Hydrocortisone [Hydrocortisone 1 applicatio TP BID #1 oint...g. 06/24/19 Unknown Rx 2.5% OINT] Triamcinolone Acetonide 1 applic TP BID PRN #45 oint...g. 07/04/19 Unknown Rx [Triamcinolone Acetonide Oint 0.5%] predniSONE 10 mg PO QDAY #5 tab 07/04/19 Unknown Rx Albuterol Mdi (or & Nicu Only) 2 puff IH QID PRN #1 inhalation 09/25/19 Unknown Rx [ProAir HFA Inhaler] Fluticasone/Salmeterol [Advair 1 puff IH BID #1 disk.w.dev 09/25/19 Unknown Rx Diskus 250-50 mcg] predniSONE [Deltasone] 40 mg PO QDAY #8 tablet 09/25/19 Unknown Rx Albuterol Mdi (or & Nicu Only) 2 puff IH QID PRN #1 inhalation 10/02/19 Unknown Rx [ProAir HFA Inhaler] Azithromycin [Zithromax Z-CELIA] 250 mg PO DAILY #6 tablet 10/02/19 Unknown Rx Benzonatate [Tessalon Perles] 100 mg PO Q8HR #30 capsule 10/02/19 Unknown Rx predniSONE [Deltasone] 3 tab PO QDAY 5 Days #15 tab 10/02/19 Unknown Rx Albuterol Mdi (or & Nicu Only) 2 puff IH QID PRN #8.5 gram 10/07/19 Unknown Rx [ProAir HFA Inhaler] levoFLOXacin [Levaquin TAB] 750 mg PO QDAY #7 tablet 10/07/19 Unknown Rx Albuterol Sulfate [Proventil Hfa] 1 - 2 puff IH Q6H PRN #1 hfa.aer.ad 06/03/20 Unknown Rx Triamcinolone Acetonide 1 applic TP BID #1 tube 06/03/20 Unknown Rx [Triamcinolone Acetonide Oint 0.5%] cephALEXin [Keflex] 500 mg PO Q6HR #40 capsule 06/03/20 Unknown Rx diphenhydrAMINE [Benadryl CAP] 25 mg PO Q6HR PRN #40 capsule 06/03/20 Unknown Rx predniSONE [Deltasone] 40 mg PO QDAY #14 tab 06/03/20 Unknown Rx Albuterol Mdi (or & Nicu Only) 2 puff IH QID PRN #1 inhalation 07/18/20 Unknown Rx [ProAir HFA Inhaler] predniSONE [Deltasone] 20 mg PO QDAY #5 tab 07/18/20 Unknown Rx Ibuprofen [Motrin 600 MG tab] 600 mg PO Q8H PRN #20 tablet 07/30/20 Unknown Rx traMADoL [Ultram 50 MG tab] 50 mg PO Q6HR PRN #12 tablet 07/30/20 Unknown Rx Albuterol Mdi (or & Nicu Only) 2 puff IH QID PRN #8.5 gram 06/29/21 Unknown Rx [ProAir HFA Inhaler] predniSONE [Deltasone] 40 mg PO QDAY 5 Days #10 tab 06/29/21 Unknown Rx Naproxen 500 mg PO Q12H PRN #12 tablet 07/19/21 Unknown Rx ED Physical Exam - General Limitations: No Limitations General appearance: alert, in no apparent distress - Head Head exam: Present: atraumatic, normocephalic - Eye Eye exam: Present: normal appearance - Neck Neck exam: Present: normal inspection, full ROM. Absent: lymphadenopathy - Respiratory Respiratory exam: Absent: respiratory distress - Cardiovascular Cardiovascular Exam: Present: regular rate - Extremities Exam Extremities exam: Present: full ROM, tenderness, normal capillary refill. Absent: pedal edema, joint swelling - Expanded Lower Extremity Exam Left Hip exam: Present: normal inspection, full ROM. Absent: tenderness, swelling Upper Leg exam: Present: normal inspection, full ROM. Absent: tenderness, swelling Knee exam: Present: normal inspection, full ROM. Absent: tenderness, swelling Lower Leg exam: Present: normal inspection, full ROM. Absent: tenderness, swelling Ankle exam: Present: normal inspection, full ROM. Absent: tenderness, swelling, abrasion, laceration, ecchymosis, deformity, crepidus, dislocation, erythema, anterior draw sign Foot/Toe exam: Present: full ROM, tenderness, swelling, ecchymosis. Absent: abrasion, laceration, deformity, crepidus, dislocation, erythema, amputation, puncture wound, foreign body, calcaneal tenderness, tenderness at base of 5th metatarsal, nail avulsion, subungual hematoma Neuro vascular tendon exam: Present: no vascular compromise Gait: Positive: observed and limited by pain 1 - pain and swelling here - Back Exam Back exam: Present: full ROM - Neurological Exam Neurological exam: Present: alert, oriented X3 - Psychiatric Psychiatric exam: Present: normal affect, normal mood - Skin Skin exam: Present: warm, dry, intact, normal color. Absent: rash ED Course Vital Signs 07/19/21 02:23 Temperature 98.4 F Pulse Rate 89 Respiratory 18 Rate Blood Pressure 138/82 [Left] O2 Sat by Pulse 98 Oximetry - Reevaluation(s) Reevaluation #1: 07/19/21 08:28 Patient is speaking in full sentences with no signs of distress noted. ED Lower Extremity MDM - Radiology Data [facility] [address] [place] [address] XRay Report Signed Patient: TALYA RIVERA MR#: [id number] : 1995 Acct:[id number] Age/Sex: 26 / M ADM Date: 07/19/21 Loc: ED Attending Dr: Ordering Physician: ZARA MARAVILLA NP Date of Service: 07/19/21 Procedure(s): XR foot 3+V RT Accession Number(s): [id number] cc: ZARA MARAVILLA NP Fluoro Time In Minutes: RIGHT FOOT HISTORY: Dropped heavy object on first toe. COMPARISON: None. TECHNIQUE: 3 views of the right foot were obtained. FINDINGS: Bones: Comminuted mildly displaced fracture through the proximal and middle portion of the first distal phalanx. Joint spaces: Maintained. Soft tissues: No significant abnormality. Additional findings: None. IMPRESSION: Comminuted mildly displaced fracture at the proximal and midportion of the right first distal phalanx. Signer Name: Yonis Hensley MD Signed: 07/19/2021 8:03 AM Workstation Name: [id number] Transcribed By: SARTHAK Dictated By: YONIS HENSLEY MD Electronically Authenticated By: YONIS HENSLEY MD Signed Date/Time: 07/19/21802 DD/ 0 TD/TT: - Medical Decision Making This is a 26-year-old male that presents with left great toe fracture. Patient is stable and was examined by me. Patient referred to orthopedic to follow-up in 3 to 5 days x-ray has been obtained and dictated by the radiologist. Patient is notified of the x-ray report with noted by the patient. Patient received a samuel splint to second and great toe. Patient also received a postop orthopedic shoe. Patient was instructed to RICE therapy. Patient received Motrin for pain. Patient is discharged with naproxen. At time of discharge, the patient does not seem toxic or ill in appearance. No acute signs of distress noted. Patient agrees to discharge treatment plan of care. No further questions noted by the patient. Critical care attestation.: If time is entered above; I have spent that time in minutes in the direct care of this critically ill patient, excluding procedure time. ED Disposition Clinical Impression: Fracture of left great toe Qualifiers: Encounter type: initial encounter Fracture type: closed Phalanx: distal Fracture alignment: nondisplaced Qualified Code(s): S92.425A - Nondisplaced fracture of distal phalanx of left great toe, initial encounter for closed fracture Disposition: 01 HOME / SELF CARE / HOMELESS Is pt being admited?: No Does the pt Need Aspirin: No Condition: Stable Instructions: Toe Fracture, [id number], RICE Therapy for Routine Care of Injuries, [id number] Additional Instructions: Follow-up with a orthopedic doctor in 3-5 days or if symptoms worsen and continue return to emergency room as soon as possible. No physical activity that extremity until cleared by orthopedic doctor Prescriptions: Naproxen 500 mg PO Q12H PRN #12 tablet PRN Reason: Pain , Severe (7-10) Referrals: PRIMARY CARE, [Primary Care Provider] - 3-5 Days ANTON LOPEZ MD [Staff Physician] - 3-5 Days Time of Disposition: 08:30
== END 2021-07-19 08:40 | disposition home or self-care (01) ==
LOC: ED 02:15
DX: S92.425A Nondisplaced fracture of distal phalanx of left great toe, initial encounter for closed fracture (principal); J45.909 Unspecified asthma, uncomplicated; Z91.018 Allergy to other foods; Z91.013 Allergy to seafood; Z88.8 Allergy status to other drugs, medicaments and biological substances; Z79.899 Other long term (current) drug therapy; W22.8XXA Striking against or struck by other objects, initial encounter; Y93.89 Activity, other specified; Y92.89 Other specified places as the place of occurrence of the external cause; Y99.8 Other external cause status
CPT/HCPCS: 99283

== ENCOUNTER 2021-07-31 05:48 | Emergency (ER) | payer MEDICAID ==
[2021-07-31] MEDS ORDERED: predniSONE 20 MG TAB PO ONE (06:23)
[2021-07-31] MEDS ORDERED: IPRATROPIUM/ALBUTEROL SULFATE 3 ML AMPUL.NEB IH ONE (06:23)
--- NOTE | 2021-07-31 06:29 | Emergency Department Report ---
ED Asthma HPI - General Chief Complaint: Adult Asthma Stated Complaint: CASS/ASTHMA Time Seen by Provider: 07/31/21 06:16 Source: EMS Mode of arrival: Wheelchair Limitations: No Limitations - History of Present Illness Initial Comments: 26-year-old male with a past medical history of asthma and eczema presents to the hospital complaints of asthma [place] his evening. Patient cannot find his inhaler. Denies previous intubations. Denies recent cough, fever, or infectious symptoms. Patient is vaccinated for Covid. Received bronchodilators in route as per patient however, this is not documented on triage - Related Data Previous Rx's Medication Instructions Recorded Last Taken Type ALBUTEROL NEB's [Proventil 0.083% 2.5 mg IH PRN PRN #1 pack 08/30/17 Unknown Rx NEBS] ALBUTEROL NEB's [Proventil 0.083% 2.5 mg IH PRN PRN 30 Days neb 10/08/17 Unknown Rx NEBS] Ibuprofen [Motrin 800 MG tab] 800 mg PO Q8HR PRN #20 tablet 11/24/17 Unknown Rx Albuterol Mdi (or & Nicu Only) 2 puff IH QID PRN #1 pump 01/06/18 Unknown Rx [ProAir HFA Inhaler] Prednisone [predniSONE 5 mg (6-Day 5 mg PO .TAPER #1 tab.ds.pk 01/06/18 Unknown Rx Pack, 21 Tabs)] Cyclobenzaprine HCl [Flexeril 5 MG 5 mg PO TID PRN #15 tab 04/28/18 Unknown Rx TAB] Ibuprofen [Motrin 800 MG tab] 800 mg PO Q8HR PRN #15 tablet 04/28/18 Unknown Rx Albuterol Sulfate [Ventolin HFA] 2 puff IH Q4H PRN #1 hfa.aer.ad 08/17/18 Unknown Rx ALBUTEROL Inhaler(NF) [VENTOLIN 1 puff IH Q4-6H PRN #1 inha 08/27/18 Unknown Rx Inhaler(NF)] Cyclobenzaprine [Flexeril] 10 mg PO QHS PRN #10 tablet 08/29/18 Unknown Rx Albuterol Mdi (or & Nicu Only) 2 puff IH QID PRN #1 device 09/05/18 Unknown Rx [ProAir HFA Inhaler] ALBUTEROL Inhaler(NF) [VENTOLIN 2 puff IH Q4HR PRN #1 inha 09/12/18 Unknown Rx Inhaler(NF)] predniSONE [Deltasone] 50 mg PO QDAY #5 tab 09/12/18 Unknown Rx ALBUTEROL NEB's [Proventil 0.083% 2.5 mg IH TID PRN #1 box 06/24/19 Unknown Rx NEBS] Hydrocortisone [Hydrocortisone 1 applicatio TP BID #1 oint...g. 06/24/19 Unknown Rx 2.5% OINT] Triamcinolone Acetonide 1 applic TP BID PRN #45 oint...g. 07/04/19 Unknown Rx [Triamcinolone Acetonide Oint 0.5%] predniSONE 10 mg PO QDAY #5 tab 07/04/19 Unknown Rx Albuterol Mdi (or & Nicu Only) 2 puff IH QID PRN #1 inhalation 09/25/19 Unknown Rx [ProAir HFA Inhaler] Fluticasone/Salmeterol [Advair 1 puff IH BID #1 disk.w.dev 09/25/19 Unknown Rx Diskus 250-50 mcg] Albuterol Mdi (or & Nicu Only) 2 puff IH QID PRN #1 inhalation 10/02/19 Unknown Rx [ProAir HFA Inhaler] Azithromycin [Zithromax Z-CELIA] 250 mg PO DAILY #6 tablet 10/02/19 Unknown Rx Benzonatate [Tessalon Perles] 100 mg PO Q8HR #30 capsule 10/02/19 Unknown Rx predniSONE [Deltasone] 3 tab PO QDAY 5 Days #15 tab 10/02/19 Unknown Rx Albuterol Mdi (or & Nicu Only) 2 puff IH QID PRN #8.5 gram 10/07/19 Unknown Rx [ProAir HFA Inhaler] levoFLOXacin [Levaquin TAB] 750 mg PO QDAY #7 tablet 10/07/19 Unknown Rx Albuterol Sulfate [Proventil Hfa] 1 - 2 puff IH Q6H PRN #1 hfa.aer.ad 06/03/20 Unknown Rx Triamcinolone Acetonide 1 applic TP BID #1 tube 06/03/20 Unknown Rx [Triamcinolone Acetonide Oint 0.5%] cephALEXin [Keflex] 500 mg PO Q6HR #40 capsule 06/03/20 Unknown Rx diphenhydrAMINE [Benadryl CAP] 25 mg PO Q6HR PRN #40 capsule 06/03/20 Unknown Rx predniSONE [Deltasone] 40 mg PO QDAY #14 tab 06/03/20 Unknown Rx Albuterol Mdi (or & Nicu Only) 2 puff IH QID PRN #1 inhalation 07/18/20 Unknown Rx [ProAir HFA Inhaler] predniSONE [Deltasone] 20 mg PO QDAY #5 tab 07/18/20 Unknown Rx Ibuprofen [Motrin 600 MG tab] 600 mg PO Q8H PRN #20 tablet 07/30/20 Unknown Rx traMADoL [Ultram 50 MG tab] 50 mg PO Q6HR PRN #12 tablet 07/30/20 Unknown Rx Albuterol Mdi (or & Nicu Only) 2 puff IH QID PRN #8.5 gram 06/29/21 Unknown Rx [ProAir HFA Inhaler] Naproxen 500 mg PO Q12H PRN #12 tablet 07/19/21 Unknown Rx Albuterol Mdi (or & Nicu Only) 2 puff IH QID PRN #1 inhalation 07/31/21 Unknown Rx [ProAir HFA Inhaler] predniSONE [Deltasone] 40 mg PO QDAY 5 Days #10 tab 07/31/21 Unknown Rx Allergies Allergy/AdvReac Type Severity Reaction Status Date / Time grape Allergy Rash Unverified 07/31/21 06:01 pet dander Allergy Rash Uncoded 12/25/16 20:36 pollen Allergy Unknown Uncoded 12/25/16 20:36 shrimp Allergy Rash Uncoded 12/25/16 20:36 ED Review of Systems ROS: Stated complaint: CASS/ASTHMA Other details as noted in HPI Comment: All other systems reviewed and negative ED Past Medical Hx - Past Medical History Hx Hypertension: No Hx CVA: No Hx Psychiatric Treatment: (Pt denies - no EMR in ED) Hx Asthma: Yes Hx Tuberculosis: Yes Additional medical history: eczema - Social History Smoking Status: Never Smoker Substance Use Type: None - Medications Home Medications: Home Medications Medication Instructions Recorded Confirmed Last Taken Type ALBUTEROL NEB's [Proventil 0.083% 2.5 mg IH PRN PRN #1 pack 08/30/17 Unknown Rx NEBS] ALBUTEROL NEB's [Proventil 0.083% 2.5 mg IH PRN PRN 30 Days neb 10/08/17 Unknown Rx NEBS] Ibuprofen [Motrin 800 MG tab] 800 mg PO Q8HR PRN #20 tablet 11/24/17 Unknown Rx Albuterol Mdi (or & Nicu Only) 2 puff IH QID PRN #1 pump 01/06/18 Unknown Rx [ProAir HFA Inhaler] Prednisone [predniSONE 5 mg (6-Day 5 mg PO .TAPER #1 tab.ds.pk 01/06/18 Unknown Rx Pack, 21 Tabs)] Cyclobenzaprine HCl [Flexeril 5 MG 5 mg PO TID PRN #15 tab 04/28/18 Unknown Rx TAB] Ibuprofen [Motrin 800 MG tab] 800 mg PO Q8HR PRN #15 tablet 04/28/18 Unknown Rx Albuterol Sulfate [Ventolin HFA] 2 puff IH Q4H PRN #1 hfa.aer.ad 08/17/18 Unknown Rx ALBUTEROL Inhaler(NF) [VENTOLIN 1 puff IH Q4-6H PRN #1 inha 08/27/18 Unknown Rx Inhaler(NF)] Cyclobenzaprine [Flexeril] 10 mg PO QHS PRN #10 tablet 08/29/18 Unknown Rx Albuterol Mdi (or & Nicu Only) 2 puff IH QID PRN #1 device 09/05/18 Unknown Rx [ProAir HFA Inhaler] ALBUTEROL Inhaler(NF) [VENTOLIN 2 puff IH Q4HR PRN #1 inha 09/12/18 Unknown Rx Inhaler(NF)] predniSONE [Deltasone] 50 mg PO QDAY #5 tab 09/12/18 Unknown Rx ALBUTEROL NEB's [Proventil 0.083% 2.5 mg IH TID PRN #1 box 06/24/19 Unknown Rx NEBS] Hydrocortisone [Hydrocortisone 1 applicatio TP BID #1 oint...g. 06/24/19 Unknown Rx 2.5% OINT] Triamcinolone Acetonide 1 applic TP BID PRN #45 oint...g. 07/04/19 Unknown Rx [Triamcinolone Acetonide Oint 0.5%] predniSONE 10 mg PO QDAY #5 tab 07/04/19 Unknown Rx Albuterol Mdi (or & Nicu Only) 2 puff IH QID PRN #1 inhalation 09/25/19 Unknown Rx [ProAir HFA Inhaler] Fluticasone/Salmeterol [Advair 1 puff IH BID #1 disk.w.dev 09/25/19 Unknown Rx Diskus 250-50 mcg] Albuterol Mdi (or & Nicu Only) 2 puff IH QID PRN #1 inhalation 10/02/19 Unknown Rx [ProAir HFA Inhaler] Azithromycin [Zithromax Z-CELIA] 250 mg PO DAILY #6 tablet 10/02/19 Unknown Rx Benzonatate [Tessalon Perles] 100 mg PO Q8HR #30 capsule 10/02/19 Unknown Rx predniSONE [Deltasone] 3 tab PO QDAY 5 Days #15 tab 10/02/19 Unknown Rx Albuterol Mdi (or & Nicu Only) 2 puff IH QID PRN #8.5 gram 10/07/19 Unknown Rx [ProAir HFA Inhaler] levoFLOXacin [Levaquin TAB] 750 mg PO QDAY #7 tablet 10/07/19 Unknown Rx Albuterol Sulfate [Proventil Hfa] 1 - 2 puff IH Q6H PRN #1 hfa.aer.ad 06/03/20 Unknown Rx Triamcinolone Acetonide 1 applic TP BID #1 tube 06/03/20 Unknown Rx [Triamcinolone Acetonide Oint 0.5%] cephALEXin [Keflex] 500 mg PO Q6HR #40 capsule 06/03/20 Unknown Rx diphenhydrAMINE [Benadryl CAP] 25 mg PO Q6HR PRN #40 capsule 06/03/20 Unknown Rx predniSONE [Deltasone] 40 mg PO QDAY #14 tab 06/03/20 Unknown Rx Albuterol Mdi (or & Nicu Only) 2 puff IH QID PRN #1 inhalation 07/18/20 Unknown Rx [ProAir HFA Inhaler] predniSONE [Deltasone] 20 mg PO QDAY #5 tab 07/18/20 Unknown Rx Ibuprofen [Motrin 600 MG tab] 600 mg PO Q8H PRN #20 tablet 07/30/20 Unknown Rx traMADoL [Ultram 50 MG tab] 50 mg PO Q6HR PRN #12 tablet 07/30/20 Unknown Rx Albuterol Mdi (or & Nicu Only) 2 puff IH QID PRN #8.5 gram 06/29/21 Unknown Rx [ProAir HFA Inhaler] Naproxen 500 mg PO Q12H PRN #12 tablet 07/19/21 Unknown Rx Albuterol Mdi (or & Nicu Only) 2 puff IH QID PRN #1 inhalation 07/31/21 Unknown Rx [ProAir HFA Inhaler] predniSONE [Deltasone] 40 mg PO QDAY 5 Days #10 tab 07/31/21 Unknown Rx ED Physical Exam - General Limitations: No Limitations - Other Other exam information: General: No acute distress Head: Atraumatic Eyes: normal appearance ENT: Moist mucous membranes Neck: Normal appearance, no midline tenderness Chest: Very mild expiratory wheeze without tachypnea, sensory muscle use, respiratory CV: Regular rate and rhythm Abdomen: Soft, normal bowel sounds, nontender, nondistended, no rebound or guarding Back: Normal inspection Extremity: Normal inspection, full range of motion, no calf tenderness or leg edema Neuro: Alert O x 3, no facial asymmetry, speech clear, no gross motor sensory deficit Psych: Appropriate behavior Skin: No rash ED Course Vital Signs 07/31/21 07/31/21 07/31/21 06:00 06:37 06:55 Temperature 98.9 F Pulse Rate 82 Pulse Rate [ 74 Anterior Bilateral Throughout] Pulse Rate [ 77 Anterior] Respiratory 19 Rate Respiratory 20 Rate [Anterior Bilateral Throughout] Respiratory 20 Rate [Anterior] Blood Pressure 121/79 Blood Pressure 124/89 [Left] O2 Sat by Pulse 97 100 Oximetry 07/31/21 07:00 Temperature Pulse Rate Pulse Rate [ Anterior Bilateral Throughout] Pulse Rate [ Anterior] Respiratory Rate Respiratory Rate [Anterior Bilateral Throughout] Respiratory Rate [Anterior] Blood Pressure 121/76 Blood Pressure [Left] O2 Sat by Pulse 100 Oximetry ED Medical Decision Making - Medical Decision Making 26-year-old male presents to the hospital with complaints of acute asthma exacerbation without any associated symptoms and did not have access to his inhaler. Patient seen bronchodilators in route with improvement. Patient received p.o. steroids in addition of bronchodilators with further improvement in symptoms. No signs of hypoxia, pain, infection. Patient will be discharged home with treatment for acute asthma exacerbation Critical Care Time: No Critical care attestation.: If time is entered above; I have spent that time in minutes in the direct care of this critically ill patient, excluding procedure time. ED Disposition Clinical Impression: Acute asthma exacerbation Disposition: HOME / SELF CARE / HOMELESS Is pt being admited?: No Does the pt Need Aspirin: No Condition: Stable Instructions: Asthma, Adult Additional Instructions: Take the medication as prescribed. Follow-up with your doctor or doctor/clinic provided. Return if symptoms worsen as indicated by your discharge i nstructions. Prescriptions: predniSONE [Deltasone] 40 mg PO QDAY 5 Days #10 tab Albuterol Mdi (or & Nicu Only) [ProAir HFA Inhaler] 2 puff IH QID PRN #1 inhalation PRN Reason: Shortness Of Breath Referrals: PRIMARY MD SAYRA [Primary Care Provider] - 3-5 Days SYBIL PARSON MD [Staff Physician] - 3-5 Days [facility] [Provider Group] - 3-5 Days Time of Disposition: 08:12
[2021-07-31 08:24] VITALS: BP 120/81
== END 2021-07-31 08:24 | disposition home or self-care (01) ==
LOC: ED 05:48
DX: J45.901 Unspecified asthma with (acute) exacerbation (principal); Z91.048 Other nonmedicinal substance allergy status; Z91.012 Allergy to eggs; Z91.013 Allergy to seafood
CPT/HCPCS: 94640; 99284; J7512; 94644

== ENCOUNTER 2021-08-15 22:48 | Emergency (ER) | payer MEDICAID ==
[2021-08-15] MEDS ORDERED: IBUPROFEN 600 MG TAB PO ONE (23:33)
[2021-08-15] MEDS ORDERED: IPRATROPIUM/ALBUTEROL SULFATE 3 ML AMPUL.NEB IH ONE (23:33)
[2021-08-15] MEDS ORDERED: methylPREDNISolone Sod Succinate 125 MG/2 ML INJ IM ONE (23:33)
--- NOTE | 2021-08-16 00:10 | XRay Report ---
XR chest routine 2V INDICATION / CLINICAL INFORMATION: COUGH, DYSPNEA, ASTHMA. COMPARISON: 10/07/2019. FINDINGS: SUPPORT DEVICES: None. HEART /PULMONARY VASCULATURE: No significant abnormality. LUNGS / PLEURA: No significant pulmonary or pleural abnormality. No pneumothorax. ADDITIONAL FINDINGS: No significant additional findings. IMPRESSION: 1. No acute findings. Signer Name: Froilan Baltazar MD Signed: 08/16/2021 12:05 AM Workstation Name: [id number]
--- NOTE | 2021-08-16 00:16 | Emergency Department Report ---
ED Shortness of Breath HPI - General Chief Complaint: Adult Asthma Stated Complaint: ASTHMA ATTACK Source: patient Mode of arrival: Ambulatory Limitations: No Limitations - History of Present Illness Initial Comments: Patient is a 26-year-old male with history of asthma who presents to the ED with complaint of acute onset persistent shortness of breath, chest tightness, wheezing, persistent dry cough for the last 4 hours, after being exposed to cold weather. Patient states that he lost his albuterol inhaler and decided come to the ED since his pharmacy was closed where he could have the refills given to him. Patient denies fever, chills, chest pain, nausea and vomiting, diarrhea, abdominal pain, nasal and sinus congestion, sore throat or headache. MD Complaint: shortness of breath, cough, "asthma attack" -: Sudden, hour(s) (4) Severity: moderate Pain Scale: 5 Quality: dull, other (Chest tightness) Consistency: constant Improves With: bronchodilators Worsens With: movement, coughing, other (Exposure to cold weather) Known History Of: asthma Context: allergen exposure Associated Symptoms: denies other symptoms, cough, other (Shortness of breath) Treatments Prior to Arrival: bronchodilator - Related Data Home Oxygen Therapy: No Previous Rx's Medication Instructions Recorded Last Taken Type ALBUTEROL NEB's [Proventil 0.083% 2.5 mg IH PRN PRN #1 pack 08/30/17 Unknown Rx NEBS] ALBUTEROL NEB's [Proventil 0.083% 2.5 mg IH PRN PRN 30 Days neb 10/08/17 Unknown Rx NEBS] Ibuprofen [Motrin 800 MG tab] 800 mg PO Q8HR PRN #20 tablet 11/24/17 Unknown Rx Prednisone [predniSONE 5 mg (6-Day 5 mg PO .TAPER #1 tab.ds.pk 01/06/18 Unknown Rx Pack, 21 Tabs)] Cyclobenzaprine HCl [Flexeril 5 MG 5 mg PO TID PRN #15 tab 04/28/18 Unknown Rx TAB] Ibuprofen [Motrin 800 MG tab] 800 mg PO Q8HR PRN #15 tablet 04/28/18 Unknown Rx Albuterol Sulfate [Ventolin HFA] 2 puff IH Q4H PRN #1 hfa.aer.ad 08/17/18 Unknown Rx ALBUTEROL Inhaler(NF) [VENTOLIN 1 puff IH Q4-6H PRN #1 inha 08/27/18 Unknown Rx Inhaler(NF)] Cyclobenzaprine [Flexeril] 10 mg PO QHS PRN #10 tablet 08/29/18 Unknown Rx Albuterol Mdi (or & Nicu Only) 2 puff IH QID PRN #1 device 09/05/18 Unknown Rx [ProAir HFA Inhaler] ALBUTEROL Inhaler(NF) [VENTOLIN 2 puff IH Q4HR PRN #1 inha 09/12/18 Unknown Rx Inhaler(NF)] predniSONE [Deltasone] 50 mg PO QDAY #5 tab 09/12/18 Unknown Rx ALBUTEROL NEB's [Proventil 0.083% 2.5 mg IH TID PRN #1 box 06/24/19 Unknown Rx NEBS] Hydrocortisone [Hydrocortisone 1 applicatio TP BID #1 oint...g. 06/24/19 Unknown Rx 2.5% OINT] Triamcinolone Acetonide 1 applic TP BID PRN #45 oint...g. 07/04/19 Unknown Rx [Triamcinolone Acetonide Oint 0.5%] predniSONE 10 mg PO QDAY #5 tab 07/04/19 Unknown Rx Albuterol Mdi (or & Nicu Only) 2 puff IH QID PRN #1 inhalation 09/25/19 Unknown Rx [ProAir HFA Inhaler] Fluticasone/Salmeterol [Advair 1 puff IH BID #1 disk.w.dev 09/25/19 Unknown Rx Diskus 250-50 mcg] Albuterol Mdi (or & Nicu Only) 2 puff IH QID PRN #1 inhalation 10/02/19 Unknown Rx [ProAir HFA Inhaler] Azithromycin [Zithromax Z-CELIA] 250 mg PO DAILY #6 tablet 10/02/19 Unknown Rx predniSONE [Deltasone] 3 tab PO QDAY 5 Days #15 tab 10/02/19 Unknown Rx Albuterol Mdi (or & Nicu Only) 2 puff IH QID PRN #8.5 gram 10/07/19 Unknown Rx [ProAir HFA Inhaler] levoFLOXacin [Levaquin TAB] 750 mg PO QDAY #7 tablet 10/07/19 Unknown Rx Albuterol Sulfate [Proventil Hfa] 1 - 2 puff IH Q6H PRN #1 hfa.aer.ad 06/03/20 Unknown Rx Triamcinolone Acetonide 1 applic TP BID #1 tube 06/03/20 Unknown Rx [Triamcinolone Acetonide Oint 0.5%] cephALEXin [Keflex] 500 mg PO Q6HR #40 capsule 06/03/20 Unknown Rx diphenhydrAMINE [Benadryl CAP] 25 mg PO Q6HR PRN #40 capsule 06/03/20 Unknown Rx predniSONE [Deltasone] 40 mg PO QDAY #14 tab 06/03/20 Unknown Rx Albuterol Mdi (or & Nicu Only) 2 puff IH QID PRN #1 inhalation 07/18/20 Unknown Rx [ProAir HFA Inhaler] predniSONE [Deltasone] 20 mg PO QDAY #5 tab 07/18/20 Unknown Rx Ibuprofen [Motrin 600 MG tab] 600 mg PO Q8H PRN #20 tablet 07/30/20 Unknown Rx traMADoL [Ultram 50 MG tab] 50 mg PO Q6HR PRN #12 tablet 07/30/20 Unknown Rx Albuterol Mdi (or & Nicu Only) 2 puff IH QID PRN #8.5 gram 06/29/21 Unknown Rx [ProAir HFA Inhaler] Naproxen 500 mg PO Q12H PRN #12 tablet 07/19/21 Unknown Rx Albuterol Mdi (or & Nicu Only) 2 puff IH QID PRN #1 inhalation 07/31/21 Unknown Rx [ProAir HFA Inhaler] Albuterol Mdi (or & Nicu Only) 2 puff IH QID PRN #1 pump 08/16/21 Unknown Rx [ProAir HFA Inhaler] Benzonatate [Tessalon Perles] 100 mg PO Q8HR #30 capsule 08/16/21 Unknown Rx predniSONE [Deltasone] 40 mg PO QDAY 5 Days #10 tab 08/16/21 Unknown Rx Allergies Allergy/AdvReac Type Severity Reaction Status Date / Time grape Allergy Rash Unverified 07/31/21 06:01 pet dander Allergy Rash Uncoded 12/25/16 20:36 pollen Allergy Unknown Uncoded 12/25/16 20:36 shrimp Allergy Rash Uncoded 12/25/16 20:36 ED Review of Systems ROS: Stated complaint: ASTHMA ATTACK Other details as noted in HPI Constitutional: denies: chills, fever Eyes: denies: eye pain, eye discharge, vision change ENT: denies: ear pain, throat pain Respiratory: cough, shortness of breath, wheezing Cardiovascular: chest pain (Chest tightness). denies: palpitations, dyspnea on exertion, edema, syncope Endocrine: no symptoms reported Gastrointestinal: denies: abdominal pain, nausea, vomiting, diarrhea Genitourinary: denies: urgency, dysuria Musculoskeletal: denies: back pain, joint swelling, arthralgia Skin: denies: rash, lesions Neurological: denies: headache, weakness, paresthesias Psychiatric: denies: anxiety, depression Hematological/Lymphatic: denies: easy bleeding, easy bruising ED Past Medical Hx - Past Medical History Hx Hypertension: No Hx CVA: No Hx Psychiatric Treatment: (Pt denies - no EMR in ED) Hx Asthma: Yes Hx Tuberculosis: Yes Additional medical history: eczema - Social History Smoking Status: Never Smoker Substance Use Type: None - Medications Home Medications: Home Medications Medication Instructions Recorded Confirmed Last Taken Type ALBUTEROL NEB's [Proventil 0.083% 2.5 mg IH PRN PRN #1 pack 08/30/17 Unknown Rx NEBS] ALBUTEROL NEB's [Proventil 0.083% 2.5 mg IH PRN PRN 30 Days neb 10/08/17 Unknown Rx NEBS] Ibuprofen [Motrin 800 MG tab] 800 mg PO Q8HR PRN #20 tablet 11/24/17 Unknown Rx Prednisone [predniSONE 5 mg (6-Day 5 mg PO .TAPER #1 tab.ds.pk 01/06/18 Unknown Rx Pack, 21 Tabs)] Cyclobenzaprine HCl [Flexeril 5 MG 5 mg PO TID PRN #15 tab 04/28/18 Unknown Rx TAB] Ibuprofen [Motrin 800 MG tab] 800 mg PO Q8HR PRN #15 tablet 04/28/18 Unknown Rx Albuterol Sulfate [Ventolin HFA] 2 puff IH Q4H PRN #1 hfa.aer.ad 08/17/18 Unknown Rx ALBUTEROL Inhaler(NF) [VENTOLIN 1 puff IH Q4-6H PRN #1 inha 08/27/18 Unknown Rx Inhaler(NF)] Cyclobenzaprine [Flexeril] 10 mg PO QHS PRN #10 tablet 08/29/18 Unknown Rx Albuterol Mdi (or & Nicu Only) 2 puff IH QID PRN #1 device 09/05/18 Unknown Rx [ProAir HFA Inhaler] ALBUTEROL Inhaler(NF) [VENTOLIN 2 puff IH Q4HR PRN #1 inha 09/12/18 Unknown Rx Inhaler(NF)] predniSONE [Deltasone] 50 mg PO QDAY #5 tab 09/12/18 Unknown Rx ALBUTEROL NEB's [Proventil 0.083% 2.5 mg IH TID PRN #1 box 06/24/19 Unknown Rx NEBS] Hydrocortisone [Hydrocortisone 1 applicatio TP BID #1 oint...g. 06/24/19 Unknown Rx 2.5% OINT] Triamcinolone Acetonide 1 applic TP BID PRN #45 oint...g. 07/04/19 Unknown Rx [Triamcinolone Acetonide Oint 0.5%] predniSONE 10 mg PO QDAY #5 tab 07/04/19 Unknown Rx Albuterol Mdi (or & Nicu Only) 2 puff IH QID PRN #1 inhalation 09/25/19 Unknown Rx [ProAir HFA Inhaler] Fluticasone/Salmeterol [Advair 1 puff IH BID #1 disk.w.dev 09/25/19 Unknown Rx Diskus 250-50 mcg] Albuterol Mdi (or & Nicu Only) 2 puff IH QID PRN #1 inhalation 10/02/19 Unknown Rx [ProAir HFA Inhaler] Azithromycin [Zithromax Z-CELIA] 250 mg PO DAILY #6 tablet 10/02/19 Unknown Rx predniSONE [Deltasone] 3 tab PO QDAY 5 Days #15 tab 10/02/19 Unknown Rx Albuterol Mdi (or & Nicu Only) 2 puff IH QID PRN #8.5 gram 10/07/19 Unknown Rx [ProAir HFA Inhaler] levoFLOXacin [Levaquin TAB] 750 mg PO QDAY #7 tablet 10/07/19 Unknown Rx Albuterol Sulfate [Proventil Hfa] 1 - 2 puff IH Q6H PRN #1 hfa.aer.ad 06/03/20 Unknown Rx Triamcinolone Acetonide 1 applic TP BID #1 tube 06/03/20 Unknown Rx [Triamcinolone Acetonide Oint 0.5%] cephALEXin [Keflex] 500 mg PO Q6HR #40 capsule 06/03/20 Unknown Rx diphenhydrAMINE [Benadryl CAP] 25 mg PO Q6HR PRN #40 capsule 06/03/20 Unknown Rx predniSONE [Deltasone] 40 mg PO QDAY #14 tab 06/03/20 Unknown Rx Albuterol Mdi (or & Nicu Only) 2 puff IH QID PRN #1 inhalation 07/18/20 Unknown Rx [ProAir HFA Inhaler] predniSONE [Deltasone] 20 mg PO QDAY #5 tab 07/18/20 Unknown Rx Ibuprofen [Motrin 600 MG tab] 600 mg PO Q8H PRN #20 tablet 07/30/20 Unknown Rx traMADoL [Ultram 50 MG tab] 50 mg PO Q6HR PRN #12 tablet 07/30/20 Unknown Rx Albuterol Mdi (or & Nicu Only) 2 puff IH QID PRN #8.5 gram 06/29/21 Unknown Rx [ProAir HFA Inhaler] Naproxen 500 mg PO Q12H PRN #12 tablet 07/19/21 Unknown Rx Albuterol Mdi (or & Nicu Only) 2 puff IH QID PRN #1 inhalation 07/31/21 Unknown Rx [ProAir HFA Inhaler] Albuterol Mdi (or & Nicu Only) 2 puff IH QID PRN #1 pump 08/16/21 Unknown Rx [ProAir HFA Inhaler] Benzonatate [Tessalon Perles] 100 mg PO Q8HR #30 capsule 08/16/21 Unknown Rx predniSONE [Deltasone] 40 mg PO QDAY 5 Days #10 tab 08/16/21 Unknown Rx ED Physical Exam - General Limitations: No Limitations General appearance: alert, in no apparent distress - Head Head exam: Present: atraumatic, normocephalic, normal inspection - Eye Eye exam: Present: normal appearance, PERRL, EOMI Pupils: Present: normal accommodation - ENT ENT exam: Present: normal exam, normal orophraynx, mucous membranes moist, TM's normal bilaterally, normal external ear exam - Neck Neck exam: Present: normal inspection, full ROM - Respiratory Respiratory exam: Present: wheezes (Mildly diffuse coarse wheezes throughout). Absent: normal lung sounds bilaterally, respiratory distress, rales, rhonchi, chest wall tenderness, accessory muscle use, decreased breath sounds - Cardiovascular Cardiovascular Exam: Present: normal rhythm, tachycardia, normal heart sounds. Absent: systolic murmur, diastolic murmur, rubs, gallop - GI/Abdominal GI/Abdominal exam: Present: soft, normal bowel sounds. Absent: tenderness, guarding, hyperactive bowel sounds, hypoactive bowel sounds - Extremities Exam Extremities exam: Present: normal inspection, full ROM, normal capillary refill - Back Exam Back exam: Present: normal inspection, full ROM. Absent: tenderness, CVA tenderness (R), CVA tenderness (L), muscle spasm, paraspinal tenderness, vertebral tenderness - Neurological Exam Neurological exam: Present: alert, oriented X3, CN II-XII intact, normal gait, reflexes normal - Psychiatric Psychiatric exam: Present: normal affect, normal mood - Skin Skin exam: Present: warm, dry, intact, normal color. Absent: rash ED Course Vital Signs 08/15/21 22:49 Pulse Rate 108 H Respiratory 19 Rate Blood Pressure 134/84 [Right] O2 Sat by Pulse 96 Oximetry ED Medical Decision Making - Radiology Data [facility] [address] [place] [address] XRay Report Signed Patient: TALYA RIVERA MR#: [id number] : 1995 Acct:[id number] Age/Sex: 26 / M ADM Date: 08/15/21 Loc: ED Attending Dr: Ordering Physician: CORI DE LA ROSA Date of Service: 08/15/21 Procedure(s): XR chest routine 2V Accession Number(s): [id number] cc: CORI DE LA ROSA Fluoro Time In Minutes: XR chest routine 2V INDICATION / CLINICAL INFORMATION: COUGH, DYSPNEA, ASTHMA. COMPARISON: 10/07/2019. FINDINGS: SUPPORT DEVICES: None. HEART /PULMONARY VASCULATURE: No significant abnormality. LUNGS / PLEURA: No significant pulmonary or pleural abnormality. No pneumothorax. ADDITIONAL FINDINGS: No significant additional findings. IMPRESSION: 1. No acute findings. Signer Name: Cade Daigle MD Signed: 08/16/2021 12:05 AM Workstation Name: [id number] Transcribed By: MARGARITA Dictated By: CADE DAIGLE MD Electronically Authenticated By: CADE DAIGLE MD Signed Date/Time: 08/16/214 DD/ TD/TT: - Medical Decision Making This is a 26-year-old male with history of asthma who presents to the ED with complaint of acute onset persistent shortness of breath, chest tightness, wheezing, persistent dry cough for the last 4 hours, after being exposed to cold weather. Patient states that he lost his albuterol inhaler and decided come to the ED since his pharmacy was closed where he could have the refills given to him. In the ED, patient is alert and oriented x3 and is not in any distress. Patient is however afebrile but tachycardic in triage. Patient had received a albuterol nebulizer treatment given by the EMS crew on his way to the ED. Patient was treated in the ED with DuoNeb and also given Solu-Medrol 125 mg intramuscular injection. On reevaluation, patient felt better, wheezing resolved with medication. Patient is hemodynamically stable with oxygen saturation of 97 to 99% in room air. Patient was advised return to the ED immediately if symptoms get worse, otherwise follow-up with his primary care physician in 7 to 10 days for reevaluation. - Differential Diagnosis Asthma; bronchitis; URI; pneumonia; Critical care attestation.: If time is entered above; I have spent that time in minutes in the direct care of this critically ill patient, excluding procedure time. ED Disposition Clinical Impression: Acute asthmatic bronchitis, Shortness of breath Disposition: 01 HOME / SELF CARE / HOMELESS Is pt being admited?: No Does the pt Need Aspirin: No Condition: Stable Instructions: Acute Bronchitis (ED), Shortness of Breath, Adult, [id number], Asthma, Adult, [id number] Additional Instructions: Take medications with food, drink plenty of fluids and follow-up with your primary care physician in 7 to 10 days for reevaluation. Return to the ED immediately if symptoms get worse. Prescriptions: predniSONE [Deltasone] 40 mg PO QDAY 5 Days #10 tab Albuterol Mdi (or & Nicu Only) [ProAir HFA Inhaler] 2 puff IH QID PRN #1 pump PRN Reason: Shortness Of Breath Benzonatate [Tessalon Perles] 100 mg PO Q8HR #30 capsule Referrals: [facility] [Provider Group] - 3-5 Days Time of Disposition: 00:17 Print Language: SCOTTISH
[2021-08-16 01:37] VITALS: BP 128/84
== END 2021-08-16 01:02 | disposition home or self-care (01) ==
LOC: ED 22:48
DX: J45.909 Unspecified asthma, uncomplicated (principal); R06.02 Shortness of breath; Z91.018 Allergy to other foods; Z91.013 Allergy to seafood; Z88.8 Allergy status to other drugs, medicaments and biological substances
CPT/HCPCS: 71046; 96372; 99284; J2930; 94640

== ENCOUNTER 2021-09-26 10:30 | Emergency (ER) | payer MEDICAID ==
[2021-09-26] MEDS ORDERED: MORPHINE 4 MG/1 ML INJ IV ONE (10:43)
[2021-09-26] MEDS ORDERED: SODIUM CHLORIDE 0.9% 1000 ML 1,000 ML IV ONE (10:43)
[2021-09-26] MEDS ORDERED: ONDANSETRON 4 MG/2 ML INJ IV ONE (10:43)
--- NOTE | 2021-09-26 10:46 | Emergency Department Report ---
ED Abdominal Pain HPI - General Chief Complaint: Abdominal Pain Stated Complaint: ABDOMINAL PAIN Time Seen by Provider: 09/26/21 10:38 Source: patient Mode of arrival: Ambulatory Limitations: No Limitations - History of Present Illness Initial Comments: Patient is a 26-year-old male presents emergency room with complaints of nausea and vomiting that began 3 days ago. He has associated abdominal pain. He denies any diarrhea, fever, urinary symptoms, pain or swelling in the testicles. He reports he had a normal bowel movement yesterday. He denies any hematochezia, hematemesis, melena, passing the stool. PMHx asthma. He denies any past abdominal surgical history. He denies any medication allergies. - Related Data Previous Rx's Medication Instructions Recorded Last Taken Type ALBUTEROL NEB's [Proventil 0.083% 2.5 mg IH PRN PRN #1 pack 08/30/17 Unknown Rx NEBS] ALBUTEROL NEB's [Proventil 0.083% 2.5 mg IH PRN PRN 30 Days neb 10/08/17 Unknown Rx NEBS] Ibuprofen [Motrin 800 MG tab] 800 mg PO Q8HR PRN #20 tablet 11/24/17 Unknown Rx Prednisone [predniSONE 5 mg (6-Day 5 mg PO .TAPER #1 tab.ds.pk 01/06/18 Unknown Rx Pack, 21 Tabs)] Cyclobenzaprine HCl [Flexeril 5 MG 5 mg PO TID PRN #15 tab 04/28/18 Unknown Rx TAB] Ibuprofen [Motrin 800 MG tab] 800 mg PO Q8HR PRN #15 tablet 04/28/18 Unknown Rx Albuterol Sulfate [Ventolin HFA] 2 puff IH Q4H PRN #1 hfa.aer.ad 08/17/18 Unknown Rx ALBUTEROL Inhaler(NF) [VENTOLIN 1 puff IH Q4-6H PRN #1 inha 08/27/18 Unknown Rx Inhaler(NF)] Cyclobenzaprine [Flexeril] 10 mg PO QHS PRN #10 tablet 08/29/18 Unknown Rx Albuterol Mdi (or & Nicu Only) 2 puff IH QID PRN #1 device 09/05/18 Unknown Rx [ProAir HFA Inhaler] ALBUTEROL Inhaler(NF) [VENTOLIN 2 puff IH Q4HR PRN #1 inha 09/12/18 Unknown Rx Inhaler(NF)] predniSONE [Deltasone] 50 mg PO QDAY #5 tab 09/12/18 Unknown Rx ALBUTEROL NEB's [Proventil 0.083% 2.5 mg IH TID PRN #1 box 06/24/19 Unknown Rx NEBS] Hydrocortisone [Hydrocortisone 1 applicatio TP BID #1 oint...g. 06/24/19 Unknown Rx 2.5% OINT] Triamcinolone Acetonide 1 applic TP BID PRN #45 oint...g. 07/04/19 Unknown Rx [Triamcinolone Acetonide Oint 0.5%] predniSONE 10 mg PO QDAY #5 tab 07/04/19 Unknown Rx Albuterol Mdi (or & Nicu Only) 2 puff IH QID PRN #1 inhalation 09/25/19 Unknown Rx [ProAir HFA Inhaler] Fluticasone/Salmeterol [Advair 1 puff IH BID #1 disk.w.dev 09/25/19 Unknown Rx Diskus 250-50 mcg] Albuterol Mdi (or & Nicu Only) 2 puff IH QID PRN #1 inhalation 10/02/19 Unknown Rx [ProAir HFA Inhaler] Azithromycin [Zithromax Z-CELIA] 250 mg PO DAILY #6 tablet 10/02/19 Unknown Rx predniSONE [Deltasone] 3 tab PO QDAY 5 Days #15 tab 10/02/19 Unknown Rx Albuterol Mdi (or & Nicu Only) 2 puff IH QID PRN #8.5 gram 10/07/19 Unknown Rx [ProAir HFA Inhaler] levoFLOXacin [Levaquin TAB] 750 mg PO QDAY #7 tablet 10/07/19 Unknown Rx Albuterol Sulfate [Proventil Hfa] 1 - 2 puff IH Q6H PRN #1 hfa.aer.ad 06/03/20 Unknown Rx Triamcinolone Acetonide 1 applic TP BID #1 tube 06/03/20 Unknown Rx [Triamcinolone Acetonide Oint 0.5%] cephALEXin [Keflex] 500 mg PO Q6HR #40 capsule 06/03/20 Unknown Rx diphenhydrAMINE [Benadryl CAP] 25 mg PO Q6HR PRN #40 capsule 06/03/20 Unknown Rx predniSONE [Deltasone] 40 mg PO QDAY #14 tab 06/03/20 Unknown Rx Albuterol Mdi (or & Nicu Only) 2 puff IH QID PRN #1 inhalation 07/18/20 Unknown Rx [ProAir HFA Inhaler] predniSONE [Deltasone] 20 mg PO QDAY #5 tab 07/18/20 Unknown Rx Ibuprofen [Motrin 600 MG tab] 600 mg PO Q8H PRN #20 tablet 07/30/20 Unknown Rx traMADoL [Ultram 50 MG tab] 50 mg PO Q6HR PRN #12 tablet 07/30/20 Unknown Rx Albuterol Mdi (or & Nicu Only) 2 puff IH QID PRN #8.5 gram 06/29/21 Unknown Rx [ProAir HFA Inhaler] Naproxen 500 mg PO Q12H PRN #12 tablet 07/19/21 Unknown Rx Albuterol Mdi (or & Nicu Only) 2 puff IH QID PRN #1 inhalation 07/31/21 Unknown Rx [ProAir HFA Inhaler] Albuterol Mdi (or & Nicu Only) 2 puff IH QID PRN #1 pump 08/16/21 Unknown Rx [ProAir HFA Inhaler] Benzonatate [Tessalon Perles] 100 mg PO Q8HR #30 capsule 08/16/21 Unknown Rx predniSONE [Deltasone] 40 mg PO QDAY 5 Days #10 tab 08/16/21 Unknown Rx Ondansetron [Zofran Odt] 4 mg PO Q8HR PRN #12 tab.rapdis 09/26/21 Unknown Rx traMADoL [Ultram 50 MG tab] 50 mg PO Q6HR PRN #10 tablet 09/26/21 Unknown Rx Allergies Allergy/AdvReac Type Severity Reaction Status Date / Time grape Allergy Rash Verified 09/26/21 12:08 shrimp Allergy Intermediate Rash Uncoded 09/26/21 12:08 pet dander Allergy Mild Rash Uncoded 09/26/21 12:08 pollen Allergy Mild Unknown Uncoded 09/26/21 12:08 ED Review of Systems ROS: Stated complaint: ABDOMINAL PAIN Other details as noted in HPI Comment: All other systems reviewed and negative ED Past Medical Hx - Past Medical History Hx Hypertension: No Hx CVA: No Hx Psychiatric Treatment: (Pt denies - no EMR in ED) Hx Asthma: Yes Hx Tuberculosis: Yes Additional medical history: eczema - Social History Smoking Status: Never Smoker Substance Use Type: None - Medications Home Medications: Home Medications Medication Instructions Recorded Confirmed Last Taken Type ALBUTEROL NEB's [Proventil 0.083% 2.5 mg IH PRN PRN #1 pack 08/30/17 09/26/21 Unknown Rx NEBS] ALBUTEROL NEB's [Proventil 0.083% 2.5 mg IH PRN PRN 30 Days neb 10/08/17 09/26/21 Unknown Rx NEBS] Ibuprofen [Motrin 800 MG tab] 800 mg PO Q8HR PRN #20 tablet 11/24/17 09/26/21 Unknown Rx Prednisone [predniSONE 5 mg (6-Day 5 mg PO .TAPER #1 tab.ds.pk 01/06/18 09/26/21 Unknown Rx Pack, 21 Tabs)] Cyclobenzaprine HCl [Flexeril 5 MG 5 mg PO TID PRN #15 tab 04/28/18 09/26/21 Unknown Rx TAB] Ibuprofen [Motrin 800 MG tab] 800 mg PO Q8HR PRN #15 tablet 04/28/18 09/26/21 Unknown Rx Albuterol Sulfate [Ventolin HFA] 2 puff IH Q4H PRN #1 hfa.aer.ad 08/17/18 09/26/21 Unknown Rx ALBUTEROL Inhaler(NF) [VENTOLIN 1 puff IH Q4-6H PRN #1 inha 08/27/18 09/26/21 Unknown Rx Inhaler(NF)] Cyclobenzaprine [Flexeril] 10 mg PO QHS PRN #10 tablet 08/29/18 09/26/21 Unknown Rx Albuterol Mdi (or & Nicu Only) 2 puff IH QID PRN #1 device 09/05/18 09/26/21 Unknown Rx [ProAir HFA Inhaler] ALBUTEROL Inhaler(NF) [VENTOLIN 2 puff IH Q4HR PRN #1 inha 09/12/18 09/26/21 Unknown Rx Inhaler(NF)] predniSONE [Deltasone] 50 mg PO QDAY #5 tab 09/12/18 09/26/21 Unknown Rx ALBUTEROL NEB's [Proventil 0.083% 2.5 mg IH TID PRN #1 box 06/24/19 09/26/21 Unknown Rx NEBS] Hydrocortisone [Hydrocortisone 1 applicatio TP BID #1 oint...g. 06/24/19 09/26/21 Unknown Rx 2.5% OINT] Triamcinolone Acetonide 1 applic TP BID PRN #45 oint...g. 07/04/19 09/26/21 Unknown Rx [Triamcinolone Acetonide Oint 0.5%] predniSONE 10 mg PO QDAY #5 tab 07/04/19 09/26/21 Unknown Rx Albuterol Mdi (or & Nicu Only) 2 puff IH QID PRN #1 inhalation 09/25/19 09/26/21 Unknown Rx [ProAir HFA Inhaler] Fluticasone/Salmeterol [Advair 1 puff IH BID #1 disk.w.dev 09/25/19 09/26/21 Unknown Rx Diskus 250-50 mcg] Albuterol Mdi (or & Nicu Only) 2 puff IH QID PRN #1 inhalation 10/02/19 09/26/21 Unknown Rx [ProAir HFA Inhaler] Azithromycin [Zithromax Z-CELIA] 250 mg PO DAILY #6 tablet 10/02/19 09/26/21 Unknown Rx predniSONE [Deltasone] 3 tab PO QDAY 5 Days #15 tab 10/02/19 09/26/21 Unknown Rx Albuterol Mdi (or & Nicu Only) 2 puff IH QID PRN #8.5 gram 10/07/19 09/26/21 Unknown Rx [ProAir HFA Inhaler] levoFLOXacin [Levaquin TAB] 750 mg PO QDAY #7 tablet 10/07/19 09/26/21 Unknown Rx Albuterol Sulfate [Proventil Hfa] 1 - 2 puff IH Q6H PRN #1 hfa.aer.ad 06/03/20 09/26/21 Unknown Rx Triamcinolone Acetonide 1 applic TP BID #1 tube 06/03/20 09/26/21 Unknown Rx [Triamcinolone Acetonide Oint 0.5%] cephALEXin [Keflex] 500 mg PO Q6HR #40 capsule 06/03/20 09/26/21 Unknown Rx diphenhydrAMINE [Benadryl CAP] 25 mg PO Q6HR PRN #40 capsule 06/03/20 09/26/21 Unknown Rx predniSONE [Deltasone] 40 mg PO QDAY #14 tab 06/03/20 09/26/21 Unknown Rx Albuterol Mdi (or & Nicu Only) 2 puff IH QID PRN #1 inhalation 07/18/20 09/26/21 Unknown Rx [ProAir HFA Inhaler] predniSONE [Deltasone] 20 mg PO QDAY #5 tab 07/18/20 09/26/21 Unknown Rx Ibuprofen [Motrin 600 MG tab] 600 mg PO Q8H PRN #20 tablet 07/30/20 09/26/21 Unknown Rx traMADoL [Ultram 50 MG tab] 50 mg PO Q6HR PRN #12 tablet 07/30/20 09/26/21 Unknown Rx Albuterol Mdi (or & Nicu Only) 2 puff IH QID PRN #8.5 gram 06/29/21 09/26/21 Unknown Rx [ProAir HFA Inhaler] Naproxen 500 mg PO Q12H PRN #12 tablet 07/19/21 09/26/21 Unknown Rx Albuterol Mdi (or & Nicu Only) 2 puff IH QID PRN #1 inhalation 07/31/21 09/26/21 Unknown Rx [ProAir HFA Inhaler] Albuterol Mdi (or & Nicu Only) 2 puff IH QID PRN #1 pump 08/16/21 09/26/21 Unknown Rx [ProAir HFA Inhaler] Benzonatate [Tessalon Perles] 100 mg PO Q8HR #30 capsule 08/16/21 09/26/21 Unknown Rx predniSONE [Deltasone] 40 mg PO QDAY 5 Days #10 tab 08/16/21 09/26/21 Unknown Rx Ondansetron [Zofran Odt] 4 mg PO Q8HR PRN #12 tab.rapdis 09/26/21 Unknown Rx traMADoL [Ultram 50 MG tab] 50 mg PO Q6HR PRN #10 tablet 09/26/21 Unknown Rx ED Physical Exam - General Limitations: No Limitations General appearance: alert, in no apparent distress - Head Head exam: Present: atraumatic, normocephalic - Eye Eye exam: Present: normal appearance - ENT ENT exam: Present: mucous membranes dry (mildly) - Respiratory Respiratory exam: Present: normal lung sounds bilaterally. Absent: respiratory distress, wheezes, rales, rhonchi, stridor, chest wall tenderness, accessory muscle use, decreased breath sounds, prolonged expiratory - Cardiovascular Cardiovascular Exam: Present: regular rate, normal rhythm, normal heart sounds. Absent: systolic murmur, diastolic murmur, rubs, gallop - GI/Abdominal GI/Abdominal exam: Present: soft, tenderness (generalized right sided abd ttp), normal bowel sounds. Absent: distended, guarding, rebound, rigid - Neurological Exam Neurological exam: Present: alert, oriented X3 - Psychiatric Psychiatric exam: Present: normal affect, normal mood - Skin Skin exam: Present: warm, dry, intact ED Course Vital Signs 09/26/21 09/26/21 10:35 14:56 Temperature 97.5 F L 99.1 F Pulse Rate 50 L 77 Respiratory 18 16 Rate Blood Pressure 135/87 Blood Pressure 128/76 [Right] O2 Sat by Pulse 100 97 Oximetry ED Medical Decision Making - Lab Data Result diagrams: 09/26/21 10:51 09/26/21 10:51 Labs 09/26/21 09/26/21 09/26/21 10:51 10:51 15:13 WBC 8.4 RBC 5.81 H Hgb 16.9 H Hct 52.1 H MCV 90 MCH 29 MCHC 32 RDW 13.2 Plt Count 237 Lymph % (Auto) 7.9 L [place] % (Auto) 11.0 H Eos % (Auto) 0.1 Baso % (Auto) 0.2 Lymph # (Auto) 0.7 L [place] # (Auto) 0.9 H Eos # (Auto) 0.0 Baso # (Auto) 0.0 Seg Neutrophils % 80.8 H Seg Neutrophils # 6.8 Sodium 133 L Potassium 5.1 H Chloride 94.5 L Carbon Dioxide 22 Anion Gap 22 BUN 11 Creatinine 0.6 L Estimated GFR > 60 BUN/Creatinine Ratio 18 Glucose 144 H Calcium 10.3 H Total Bilirubin 0.30 AST 16 ALT 13 Alkaline Phosphatase 75 Total Protein 7.9 Albumin 4.9 Albumin/Globulin Ratio 1.6 Lipase 11 L Urine Color Yellow Urine Turbidity Clear Urine pH 6.0 Ur Specific [place] 1.053 H Urine Protein 100 mg/dl Urine Glucose (UA) Neg Urine Ketones 80 Urine Blood Neg Urine Nitrite Neg Urine Bilirubin Neg Urine Urobilinogen < 2.0 Ur Leukocyte Esterase Neg Urine WBC (Auto) 3.0 Urine RBC (Auto) 6.0 Urine Mucus 1+ Vital Signs 09/26/21 09/26/21 10:35 14:56 Temperature 97.5 F L 99.1 F Pulse Rate 50 L 77 Respiratory 18 16 Rate Blood Pressure 135/87 Blood Pressure 128/76 [Right] O2 Sat by Pulse 100 97 Oximetry - Radiology Data Radiology results: report reviewed Ordering Physician: CORI VASQUEZ Date of Service: 09/26/21 Procedure(s): CT abdomen pelvis w con Accession Number(s): [id number] cc: CORI VASQUEZ CT ABDOMEN AND PELVIS WITH CONTRAST INDICATION: right sided abd pain, n/v. TECHNIQUE: Axial CT images were obtained through the abdomen and pelvis after IV contrast. All CT scans at this location are performed using CT dose reduction for ALARA by means of [employer] [place] exposure control. COMPARISON: None available. FINDINGS: LOWER CHEST: No significant abnormality. LIVER: No significant abnormality. GALLBLADDER: No significant abnormality. BILE DUCTS: No significant abnormality. PANCREAS: No significant abnormality. SPLEEN: No significant abnormality. ADRENALS: No significant abnormality. RIGHT KIDNEY and URETER: No significant abnormality. LEFT KIDNEY and URETER: Nonobstructing 3 mm stone left kidney. No ureteral stone or hydronephrosis STOMACH and SMALL BOWEL: No significant abnormality. COLON: No significant abnormality. APPENDIX: No significant abnormality. PERITONEUM: No free fluid. No free air. No fluid collection. LYMPH NODES: No significant adenopathy. AORTA and ARTERIES: No significant abnormality. IVC and VEINS: No significant abnormality. URINARY BLADDER: No significant abnormality. REPRODUCTIVE ORGANS: No significant abnormality. ADDITIONAL FINDINGS: None. SKELETAL SYSTEM: No significant abnormality. IMPRESSION: 1. Left nephrolithiasis. No ureteral stone or hydronephrosis. 2. No CT evidence for appendicitis or other acute inflammatory process Signer Name: Librado Salgado MD Signed: 09/26/2021 2:37 PM Workstation Name: [id number] Transcribed By: TL Dictated By: Librado Salgado MD Electronically Authenticated By: Librado Salgado MD Signed Date/Time: 09/26/21 1437 DD/ 1433 TD/TT: Print - Medical Decision Making Patient is a 26-year-old male presents emergency room with complaints of nausea and vomiting that began 3 days ago. He has associated abdominal pain. He denies any diarrhea, fever, urinary symptoms, pain or swelling in the testicles. He reports he had a normal bowel movement yesterday. He denies any hematochezia, hematemesis, melena, passing the stool. PMHx asthma. He denies any past abdominal surgical history. He denies any medication allergies. vss. on exam pt has generalized right sided abd ttp, no guarding, no rebound, no rigidity, no peritoneal signs. labs and UA shows evidence of dehydration, otherwise stable. CT abd pelvis with IV contrast: 1. Left nephrolithiasis. No ureteral stone or hydronephrosis. 2. No CT evidence for appendicitis or other acute inflammatory process. pt given IV fluids, pain medication and antiemetic and symptoms improved and he had no further episodes of vomiting. discussed all results with pt and answered questions. advised pt please take medication as prescribed. increase your fluid intake. eat a bland liquid diet and slowly advance your diet as tolerated. follow up with a primary care doctor for reexamination. return to the emergency room for any new or worsening symptoms. Critical care attestation.: If time is entered above; I have spent that time in minutes in the direct care of this critically ill patient, excluding procedure time. ED Disposition Clinical Impression: Dehydration, Nephrolithiasis Abdominal pain Qualifiers: Abdominal location: generalized Qualified Code(s): R10.84 - Generalized abdominal pain Nausea & vomiting Qualifiers: Vomiting type: unspecified Qualified Code(s): R11.2 - Nausea with vomiting, unspecified Disposition: HOME / SELF CARE / HOMELESS Is pt being admited?: No Does the pt Need Aspirin: No Condition: Stable Instructions: Kidney Stones, [id number], Abdominal Pain, Adult, [id number], Nausea and Vomiting, Adult Additional Instructions: please take medication as prescribed. increase your fluid intake. eat a bland liquid diet and slowly advance your diet as tolerated. follow up with a primary care doctor for reexamination. return to the emergency room for any new or worsening symptoms. Prescriptions: traMADoL [Ultram 50 MG tab] 50 mg PO Q6HR PRN #10 tablet PRN Reason: Pain , Severe (7-10) Ondansetron [Zofran Odt] 4 mg PO Q8HR PRN #12 tab.rapdis PRN Reason: nausea/vomiting Referrals: PRIMARY CAREMD [Primary Care Provider] - 3-5 Days SYBIL PARSON MD [Staff Physician] - 3-5 Days [facility] [Provider Group] - 3-5 Days Time of Disposition: 15:38 Print Language: ROMANIAN
[2021-09-26 11:34] LABS: Basophils % (Auto) 0.2 % (0.0-1.8); Eosinophils % (Auto) 0.1 % (0.0-4.3); Hematocrit 52.1 % (35.5-45.6); Hemoglobin 16.9 gm/dl (11.8-15.2); Lymphocytes # (Auto) 0.7 K/mm3 (1.2-5.4); Lymphocytes % (Auto) 7.9 % (13.4-35.0); Mean Corpuscular HGB Conc 32 % (32-34); Mean Corpuscular Volume 90 fl (84-94); Monocytes # (Auto) 0.9 K/mm3 (0.0-0.8); Platelet Count 237 K/mm3 (140-440); Red Blood Count 5.81 M/mm3 (3.65-5.03); Red Cell Distribution Width 13.2 % (13.2-15.2)
[2021-09-26 12:14] LABS: Alanine Aminotransferase 13 units/L (7-56); Albumin 4.9 g/dL (3.9-5); Blood Urea Nitrogen 11 mg/dL (9-20); Calcium 10.3 mg/dL (8.4-10.2); Hemolysis Index 41
[2021-09-26 12:16] LABS: BUN/Creatinine Ratio 18
--- NOTE | 2021-09-26 14:42 | Cat Scan Report ---
CT ABDOMEN AND PELVIS WITH CONTRAST INDICATION: right sided abd pain, n/v. TECHNIQUE: Axial CT images were obtained through the abdomen and pelvis after IV contrast. All CT scans at this location are performed using CT dose reduction for ALARA by means of automated exposure control. COMPARISON: None available. FINDINGS: LOWER CHEST: No significant abnormality. LIVER: No significant abnormality. GALLBLADDER: No significant abnormality. BILE DUCTS: No significant abnormality. PANCREAS: No significant abnormality. SPLEEN: No significant abnormality. ADRENALS: No significant abnormality. RIGHT KIDNEY and URETER: No significant abnormality. LEFT KIDNEY and URETER: Nonobstructing 3 mm stone left kidney. No ureteral stone or hydronephrosis STOMACH and SMALL BOWEL: No significant abnormality. COLON: No significant abnormality. APPENDIX: No significant abnormality. PERITONEUM: No free fluid. No free air. No fluid collection. LYMPH NODES: No significant adenopathy. AORTA and ARTERIES: No significant abnormality. IVC and VEINS: No significant abnormality. URINARY BLADDER: No significant abnormality. REPRODUCTIVE ORGANS: No significant abnormality. ADDITIONAL FINDINGS: None. SKELETAL SYSTEM: No significant abnormality. IMPRESSION: 1. Left nephrolithiasis. No ureteral stone or hydronephrosis. 2. No CT evidence for appendicitis or other acute inflammatory process Signer Name: Librado Salgado MD Signed: 09/26/2021 2:37 PM Workstation Name: [id number]
[2021-09-26 14:58] VITALS: BP 128/76
[2021-09-26 15:28] LABS: Bilirubin,Urine NEG (Negative); Blood,Urine NEG (Negative); Color,Urine Yellow (Yellow); Mucus,Urine 1+ /HPF; Urobilinogen,Urine < 2.0 mg/dL (<2.0)
== END 2021-09-26 15:49 | disposition home or self-care (01) ==
LOC: ED 10:30
DX: E86.0 Dehydration (principal); N20.0 Calculus of kidney; J45.909 Unspecified asthma, uncomplicated; Z91.013 Allergy to seafood; Z88.8 Allergy status to other drugs, medicaments and biological substances; Z91.018 Allergy to other foods; Z79.899 Other long term (current) drug therapy
CPT/HCPCS: 36415; 74177; 80053; 81001; 83690; 85025; 96361; 96374; 96375; 99284; J2270; J2405; J7030; Q9967; Q0162

== ENCOUNTER 2021-12-26 23:48 | Emergency (ER) | payer MEDICAID ==
[2021-12-27] MEDS ORDERED: predniSONE 20 MG TAB PO ONE (02:38)
[2021-12-27] MEDS ORDERED: ALBUTEROL 2.5 MG/3 ML NEBU IH ONE ×2 (02:38→04:31)
[2021-12-27] MEDS ORDERED: IPRATROPIUM 0.02% NEBU 2.5 ML IH ONE (02:38)
[2021-12-27] MEDS ORDERED: ACETAMINOPHEN 325 MG TAB PO STA (02:39)
--- NOTE | 2021-12-27 02:39 | Emergency Department Report ---
ED General Adult HPI - General Chief complaint: Dyspnea/Respdistress Stated complaint: DIFFICULTY BREATHING Time Seen by Provider: 12/27/21 02:27 Source: patient, EMS ( EMS documentation not available at time of chart dictation ), RN notes reviewed, old records reviewed Mode of arrival: Stretcher Limitations: No Limitations - History of Present Illness Initial comments: Patient is a 26-year-old gentleman with a history of reactive airways disease and bronchitis, who presents to the ER today with a complaint of cough, wheezing, and shortness of breath. Denies travel, surgery, immobilization, DVT/PE risk factors. -: Gradual, hour(s), days(s) Severity scale (0 -10): 2 Consistency: constant Improves with: medication Worsens with: movement - Related Data Previous Rx's Medication Instructions Recorded Last Taken Type ALBUTEROL NEB's [Proventil 0.083% 2.5 mg IH PRN PRN #1 pack 08/30/17 Unknown Rx NEBS] ALBUTEROL NEB's [Proventil 0.083% 2.5 mg IH PRN PRN 30 Days neb 10/08/17 Unknown Rx NEBS] Ibuprofen [Motrin 800 MG tab] 800 mg PO Q8HR PRN #20 tablet 11/24/17 Unknown Rx Prednisone [predniSONE 5 mg (6-Day 5 mg PO .TAPER #1 tab.ds.pk 01/06/18 Unknown Rx Pack, 21 Tabs)] Ibuprofen [Motrin 800 MG tab] 800 mg PO Q8HR PRN #15 tablet 04/28/18 Unknown Rx Albuterol Sulfate [Ventolin HFA] 2 puff IH Q4H PRN #1 hfa.aer.ad 08/17/18 Unknown Rx ALBUTEROL Inhaler(NF) [VENTOLIN 1 puff IH Q4-6H PRN #1 inha 08/27/18 Unknown Rx Inhaler(NF)] Albuterol Mdi (or & Nicu Only) 2 puff IH QID PRN #1 device 09/05/18 Unknown Rx [ProAir HFA Inhaler] ALBUTEROL Inhaler(NF) [VENTOLIN 2 puff IH Q4HR PRN #1 inha 09/12/18 Unknown Rx Inhaler(NF)] predniSONE [Deltasone] 50 mg PO QDAY #5 tab 12/20/18 Unknown Rx ALBUTEROL NEB's [Proventil 0.083% 2.5 mg IH TID PRN #1 box 06/24/19 Unknown Rx NEBS] Hydrocortisone [Hydrocortisone 1 applicatio TP BID #1 oint...g. 06/24/19 Unknown Rx 2.5% OINT] Triamcinolone Acetonide 1 applic TP BID PRN #45 oint...g. 07/04/19 Unknown Rx [Triamcinolone Acetonide Oint 0.5%] predniSONE 10 mg PO QDAY #5 tab 07/04/19 Unknown Rx Albuterol Mdi (or & Nicu Only) 2 puff IH QID PRN #1 inhalation 09/25/19 Unknown Rx [ProAir HFA Inhaler] Fluticasone/Salmeterol [Advair 1 puff IH BID #1 disk.w.dev 09/25/19 Unknown Rx Diskus 250-50 mcg] Albuterol Mdi (or & Nicu Only) 2 puff IH QID PRN #1 inhalation 10/02/19 Unknown Rx [ProAir HFA Inhaler] Azithromycin [Zithromax Z-CELIA] 250 mg PO DAILY #6 tablet 10/02/19 Unknown Rx predniSONE [Deltasone] 3 tab PO QDAY 5 Days #15 tab 10/02/19 Unknown Rx Albuterol Mdi (or & Nicu Only) 2 puff IH QID PRN #8.5 gram 10/07/19 Unknown Rx [ProAir HFA Inhaler] levoFLOXacin [Levaquin TAB] 750 mg PO QDAY #7 tablet 10/07/19 Unknown Rx Albuterol Sulfate [Proventil Hfa] 1 - 2 puff IH Q6H PRN #1 hfa.aer.ad 06/03/20 Unknown Rx Triamcinolone Acetonide 1 applic TP BID #1 tube 06/03/20 Unknown Rx [Triamcinolone Acetonide Oint 0.5%] cephALEXin [Keflex] 500 mg PO Q6HR #40 capsule 06/03/20 Unknown Rx diphenhydrAMINE [Benadryl CAP] 25 mg PO Q6HR PRN #40 capsule 06/03/20 Unknown Rx predniSONE [Deltasone] 40 mg PO QDAY #14 tab 06/03/20 Unknown Rx Albuterol Mdi (or & Nicu Only) 2 puff IH QID PRN #1 inhalation 07/18/20 Unknown Rx [ProAir HFA Inhaler] predniSONE [Deltasone] 20 mg PO QDAY #5 tab 07/18/20 Unknown Rx Ibuprofen [Motrin 600 MG tab] 600 mg PO Q8H PRN #20 tablet 07/30/20 Unknown Rx Albuterol Mdi (or & Nicu Only) 2 puff IH QID PRN #8.5 gram 06/29/21 Unknown Rx [ProAir HFA Inhaler] Naproxen 500 mg PO Q12H PRN #12 tablet 07/19/21 Unknown Rx Albuterol Mdi (or & Nicu Only) 2 puff IH QID PRN #1 inhalation 07/31/21 Unknown Rx [ProAir HFA Inhaler] Albuterol Mdi (or & Nicu Only) 2 puff IH QID PRN #1 pump 08/16/21 Unknown Rx [ProAir HFA Inhaler] Benzonatate [Tessalon Perles] 100 mg PO Q8HR #30 capsule 08/16/21 Unknown Rx predniSONE [Deltasone] 40 mg PO QDAY 5 Days #10 tab 08/16/21 Unknown Rx Ondansetron [Zofran Odt] 4 mg PO Q8HR PRN #12 tab.rapdis 09/26/21 Unknown Rx Albuterol Sulfate [Albuterol 0.63% 0.63 mg IH Q4HR PRN #2 ml 12/27/21 Unknown Rx NEBS] Albuterol Sulfate [Proair 90 mcg IH Q4HR PRN #2 aer.pow.ba 12/27/21 Unknown Rx Respiclick] Benzonatate [Tessalon Perles] 100 mg PO Q8HR PRN #30 capsule 12/27/21 Unknown Rx Cetirizine HCl [Zyrtec 10mg tab] 10 mg PO QDAY #30 tab 12/27/21 Unknown Rx Ondansetron [Zofran Odt] 4 mg PO Q8HR PRN #20 tab.rapdis 12/27/21 Unknown Rx predniSONE [Deltasone] 40 mg PO QDAY #8 tab 12/27/21 Unknown Rx Allergies Allergy/AdvReac Type Severity Reaction Status Date / Time grape Allergy Rash Verified 09/26/21 12:08 shrimp Allergy Intermediate Rash Uncoded 09/26/21 12:08 pet dander Allergy Mild Rash Uncoded 09/26/21 12:08 pollen Allergy Mild Unknown Uncoded 09/26/21 12:08 ED Review of Systems ROS: Stated complaint: DIFFICULTY BREATHING Other details as noted in HPI Constitutional: fever, other (Denies loss of taste and). denies: malaise, weakness ENT: congestion Respiratory: cough, shortness of breath, SOB with exertion, SOB at rest, wheezing Cardiovascular: denies: chest pain Gastrointestinal: denies: abdominal pain Psychiatric: anxiety ED Past Medical Hx - Past Medical History Hx Hypertension: No Hx CVA: No Hx Psychiatric Treatment: (Pt denies - no EMR in ED) Hx Asthma: Yes Hx Tuberculosis: Yes Additional medical history: eczema - Social History Smoking Status: Never Smoker Substance Use Type: None - Medications Home Medications: Home Medications Medication Instructions Recorded Confirmed Last Taken Type ALBUTEROL NEB's [Proventil 0.083% 2.5 mg IH PRN PRN #1 pack 08/30/17 09/26/21 Unknown Rx NEBS] ALBUTEROL NEB's [Proventil 0.083% 2.5 mg IH PRN PRN 30 Days neb 10/08/17 09/26/21 Unknown Rx NEBS] Ibuprofen [Motrin 800 MG tab] 800 mg PO Q8HR PRN #20 tablet 11/24/17 09/26/21 Unknown Rx Prednisone [predniSONE 5 mg (6-Day 5 mg PO .TAPER #1 tab.ds.pk 01/06/18 09/26/21 Unknown Rx Pack, 21 Tabs)] Ibuprofen [Motrin 800 MG tab] 800 mg PO Q8HR PRN #15 tablet 04/28/18 09/26/21 Unknown Rx Albuterol Sulfate [Ventolin HFA] 2 puff IH Q4H PRN #1 hfa.aer.ad 08/17/18 09/26/21 Unknown Rx ALBUTEROL Inhaler(NF) [VENTOLIN 1 puff IH Q4-6H PRN #1 inha 08/27/18 09/26/21 Unknown Rx Inhaler(NF)] Albuterol Mdi (or & Nicu Only) 2 puff IH QID PRN #1 device 09/05/18 09/26/21 Unknown Rx [ProAir HFA Inhaler] ALBUTEROL Inhaler(NF) [VENTOLIN 2 puff IH Q4HR PRN #1 inha 09/12/18 09/26/21 Unknown Rx Inhaler(NF)] predniSONE [Deltasone] 50 mg PO QDAY #5 tab 09/12/18 09/26/21 Unknown Rx ALBUTEROL NEB's [Proventil 0.083% 2.5 mg IH TID PRN #1 box 06/24/19 09/26/21 Unknown Rx NEBS] Hydrocortisone [Hydrocortisone 1 applicatio TP BID #1 oint...g. 06/24/19 09/26/21 Unknown Rx 2.5% OINT] Triamcinolone Acetonide 1 applic TP BID PRN #45 oint...g. 07/04/19 09/26/21 Unknown Rx [Triamcinolone Acetonide Oint 0.5%] predniSONE 10 mg PO QDAY #5 tab 07/04/19 09/26/21 Unknown Rx Albuterol Mdi (or & Nicu Only) 2 puff IH QID PRN #1 inhalation 09/25/19 09/26/21 Unknown Rx [ProAir HFA Inhaler] Fluticasone/Salmeterol [Advair 1 puff IH BID #1 disk.w.dev 09/25/19 09/26/21 Unknown Rx Diskus 250-50 mcg] Albuterol Mdi (or & Nicu Only) 2 puff IH QID PRN #1 inhalation 10/02/19 09/26/21 Unknown Rx [ProAir HFA Inhaler] Azithromycin [Zithromax Z-CELIA] 250 mg PO DAILY #6 tablet 10/02/19 09/26/21 Unknown Rx predniSONE [Deltasone] 3 tab PO QDAY 5 Days #15 tab 10/02/19 09/26/21 Unknown Rx Albuterol Mdi (or & Nicu Only) 2 puff IH QID PRN #8.5 gram 10/07/19 09/26/21 Unknown Rx [ProAir HFA Inhaler] levoFLOXacin [Levaquin TAB] 750 mg PO QDAY #7 tablet 10/07/19 09/26/21 Unknown Rx Albuterol Sulfate [Proventil Hfa] 1 - 2 puff IH Q6H PRN #1 hfa.aer.ad 06/03/20 09/26/21 Unknown Rx Triamcinolone Acetonide 1 applic TP BID #1 tube 06/03/20 09/26/21 Unknown Rx [Triamcinolone Acetonide Oint 0.5%] cephALEXin [Keflex] 500 mg PO Q6HR #40 capsule 06/03/20 09/26/21 Unknown Rx diphenhydrAMINE [Benadryl CAP] 25 mg PO Q6HR PRN #40 capsule 06/03/20 09/26/21 Unknown Rx predniSONE [Deltasone] 40 mg PO QDAY #14 tab 06/03/20 09/26/21 Unknown Rx Albuterol Mdi (or & Nicu Only) 2 puff IH QID PRN #1 inhalation 07/18/20 09/26/21 Unknown Rx [ProAir HFA Inhaler] predniSONE [Deltasone] 20 mg PO QDAY #5 tab 07/18/20 09/26/21 Unknown Rx Ibuprofen [Motrin 600 MG tab] 600 mg PO Q8H PRN #20 tablet 07/30/20 09/26/21 Unknown Rx Albuterol Mdi (or & Nicu Only) 2 puff IH QID PRN #8.5 gram 06/29/21 09/26/21 Unknown Rx [ProAir HFA Inhaler] Naproxen 500 mg PO Q12H PRN #12 tablet 07/19/21 09/26/21 Unknown Rx Albuterol Mdi (or & Nicu Only) 2 puff IH QID PRN #1 inhalation 07/31/21 09/26/21 Unknown Rx [ProAir HFA Inhaler] Albuterol Mdi (or & Nicu Only) 2 puff IH QID PRN #1 pump 08/16/21 09/26/21 Unknown Rx [ProAir HFA Inhaler] Benzonatate [Tessalon Perles] 100 mg PO Q8HR #30 capsule 08/16/21 09/26/21 Unknown Rx predniSONE [Deltasone] 40 mg PO QDAY 5 Days #10 tab 08/16/21 09/26/21 Unknown Rx Ondansetron [Zofran Odt] 4 mg PO Q8HR PRN #12 tab.rapdis 09/26/21 Unknown Rx Albuterol Sulfate [Albuterol 0.63% 0.63 mg IH Q4HR PRN #2 ml 12/27/21 Unknown Rx NEBS] Albuterol Sulfate [Proair 90 mcg IH Q4HR PRN #2 aer.pow.ba 12/27/21 Unknown Rx Respiclick] Benzonatate [Tessalon Perles] 100 mg PO Q8HR PRN #30 capsule 12/27/21 Unknown Rx Cetirizine HCl [Zyrtec 10mg tab] 10 mg PO QDAY #30 tab 12/27/21 Unknown Rx Ondansetron [Zofran Odt] 4 mg PO Q8HR PRN #20 tab.rapdis 12/27/21 Unknown Rx predniSONE [Deltasone] 40 mg PO QDAY #8 tab 12/27/21 Unknown Rx ED Physical Exam - General Limitations: No Limitations General appearance: alert, anxious, in distress - Head Head exam: Present: atraumatic, normocephalic - Eye Eye exam: Present: normal appearance, EOMI. Absent: nystagmus - ENT ENT exam: Present: normal exam, normal orophraynx, mucous membranes moist, normal external ear exam - Neck Neck exam: Present: normal inspection, full ROM. Absent: tenderness, meningis mus - Respiratory Respiratory exam: Present: respiratory distress, wheezes. Absent: rales, stridor - Cardiovascular Cardiovascular Exam: Present: normal rhythm, tachycardia, normal heart sounds. Absent: bradycardia, irregular rhythm, systolic murmur, diastolic murmur, rubs, gallop - GI/Abdominal GI/Abdominal exam: Present: soft. Absent: distended, tenderness, guarding, rebound, rigid, pulsatile mass - Rectal Rectal exam: Present: deferred - Extremities Exam Extremities exam: Present: normal inspection, full ROM, other (2+ pulses noted in the bilateral upper and lower extremities. There is no palpable cord. negative Homans sign. Muscular compartments are soft. The pelvis is stable.). Absent: pedal edema, calf tenderness - Back Exam Back exam: Present: normal inspection, full ROM. Absent: tenderness, CVA tenderness (R), CVA tenderness (L), paraspinal tenderness, vertebral tenderness - Neurological Exam Neurological exam: Present: alert, oriented X3, normal gait, other (No facial droop. Tongue midline. Extraocular movements intact bilaterally. Facial sensation intact to light touch in V1, V2, V3 distribution bilaterally. 5 and a 5 strength in 4 extremities. Sensation intact to light touch in 4 ex tremities.). Absent: motor sensory deficit - Psychiatric Psychiatric exam: Present: anxious - Skin Skin exam: Present: warm, dry, intact, normal color. Absent: rash ED Course Vital Signs 12/26/21 12/27/21 12/27/21 23:53 02:29 02:30 Temperature Pulse Rate 110 H Pulse Rate [ Bilateral] Respiratory 20 Rate Respiratory Rate [Bilateral ] Blood Pressure 126/72 Blood Pressure 142/80 [Right] O2 Sat by Pulse 100 95 94 Oximetry 12/27/21 12/27/21 12/27/21 02:31 02:35 02:44 Temperature 100.1 F H Pulse Rate 92 H Pulse Rate [ Bilateral] Respiratory 21 21 21 Rate Respiratory Rate [Bilateral ] Blood Pressure Blood Pressure 126/72 [Right] O2 Sat by Pulse 95 95 Oximetry 12/27/21 12/27/21 12/27/21 02:46 02:58 03:00 Temperature Pulse Rate Pulse Rate [ 102 H Bilateral] Respiratory Rate Respiratory 24 Rate [Bilateral ] Blood Pressure 139/83 133/95 Blood Pressure [Right] O2 Sat by Pulse 93 95 Oximetry 12/27/21 12/27/21 12/27/21 03:16 03:24 03:30 Temperature 100.1 F H Pulse Rate 92 H Pulse Rate [ Bilateral] Respiratory 19 Rate Respiratory Rate [Bilateral ] Blood Pressure 124/77 131/71 132/69 Blood Pressure [Right] O2 Sat by Pulse 95 95 92 Oximetry 12/27/21 12/27/21 12/27/21 03:46 04:00 04:30 Temperature Pulse Rate Pulse Rate [ Bilateral] Respiratory Rate Respiratory Rate [Bilateral ] Blood Pressure 139/75 146/77 138/70 Blood Pressure [Right] O2 Sat by Pulse 93 93 93 Oximetry 12/27/21 12/27/21 12/27/21 04:32 04:44 04:46 Temperature 99.0 F Pulse Rate Pulse Rate [ 92 H Bilateral] Respiratory Rate Respiratory 18 Rate [Bilateral ] Blood Pressure 138/70 Blood Pressure [Right] O2 Sat by Pulse 86 Oximetry 12/27/21 12/27/21 05:00 05:05 Temperature Pulse Rate 121 H Pulse Rate [ 101 H Bilateral] Respiratory 25 H Rate Respiratory 18 Rate [Bilateral ] Blood Pressure 107/64 Blood Pressure [Right] O2 Sat by Pulse 92 Oximetry - Reevaluation(s) Reevaluation #1: 12/27/21 03:59 Differential diagnosis, including but not limited to: Bronchitis, pneumonia, reactive airways disease Assessment and plan: 26-year-old gentleman who reports that he is COVID-19 vaccinated, presenting to the ER with probable reactive airways disease exacerbation. He denies DVT and PE risk factors. Start albuterol, Atrovent, steroids, Tylenol, obtain x-ray of the chest which is negative, and reassess. 12/27/21 04:36 The patient is reexamined. He is still wheezing. He is tachycardic but this is likely secondary to albuterol administration. O2 sat 91 to 93%. There may be a component of VQ mismatch secondary to reactive airways disease and prior treatment. Additional albuterol ordered, in addition to magnesium and subcutaneous epinephrine. Laboratory studies ordered, EKG ordered, IV fluids ordered. Reassess 12/27/21 04:53 Patient is now actively vomiting. Albuterol held. Reglan ordered. Laboratory studies pending. 12/27/21 05:00 Vomiting resolved. Leukocytosis likely stress reaction. Pretreatment peak flow 230. 12/27/21 05:45 Reassessed. Wheezing resolved. Vomiting resolved. Heart rate 95 bpm. O2 sat 96% on room air. States he feels improved. Discharged with outpatient follow- up. Repeat peak flow 250, but poor effort. 12/27/21 05:45 ED Medical Decision Making - Lab Data Result diagrams: 12/27/21 04:34 12/27/21 04:34 Vital Signs 12/26/21 12/27/21 12/27/21 23:53 02:29 02:30 Temperature Pulse Rate 110 H Pulse Rate [ Bilateral] Respiratory 20 Rate Respiratory Rate [Bilateral ] Blood Pressure 126/72 Blood Pressure 142/80 [Right] O2 Sat by Pulse 100 95 94 Oximetry 12/27/21 12/27/21 12/27/21 02:31 02:35 02:44 Temperature 100.1 F H Pulse Rate 92 H Pulse Rate [ Bilateral] Respiratory 21 21 21 Rate Respiratory Rate [Bilateral ] Blood Pressure Blood Pressure 126/72 [Right] O2 Sat by Pulse 95 95 Oximetry 12/27/21 12/27/21 02:58 03:24 Temperature 100.1 F H Pulse Rate 92 H Pulse Rate [ 102 H Bilateral] Respiratory 19 Rate Respiratory 24 Rate [Bilateral ] Blood Pressure 131/71 Blood Pressure [Right] O2 Sat by Pulse 95 Oximetry - Radiology Data Radiology results: pending, report reviewed, image reviewed CHEST 1 VIEW 12/27/2021 2:40 AM INDICATION / CLINICAL INFORMATION: cough wheezing fever. COMPARISON: 08/15/2021 FINDINGS: SUPPORT DEVICES: None. HEART / MEDIASTINUM: No significant abnormality. LUNGS / PLEURA: No significant pulmonary or pleural abnormality. No pneumothorax. ADDITIONAL FINDINGS: No significant additional findings. IMPRESSION: 1. No acute findings. Signer Name: Royce Gomez MD Signed: 12/27/2021 1:52 AM Workstation Name: [employer] Critical care attestation.: If time is entered above; I have spent that time in minutes in the direct care of this critically ill patient, excluding procedure time. ED Disposition Clinical Impression: Acute bronchitis Disposition: HOME / SELF CARE / HOMELESS Is pt being admited?: No Does the pt Need Aspirin: No Condition: Good Instructions: Acute Bronchitis, Adult, [id number], Acute Bronchitis (ED) Additional Instructions: Avoid consumption of alcohol, tobacco, smoke products. Take Tylenol or Motrin [id number] as needed for physical pain. Take the breathing medication as directed, steroids as directed, and Zyrtec as directed. Follow-up with your primary care doctor in the next 7 to 10 days. Please return to the emergency room right away with new pain, worsened pain, migration of pain, projectile vomiting, change in mental status, confusion, inab ility tolerate liquid feeds, new, worsened or different symptoms not present on the initial emergency room evaluation Prescriptions: Albuterol Sulfate [Albuterol 0.63% NEBS] 0.63 mg IH Q4HR PRN #2 ml PRN Reason: Wheezing predniSONE [Deltasone] 40 mg PO QDAY #8 tab Albuterol Sulfate [Proair Respiclick] 90 mcg IH Q4HR PRN #2 aer.pow.ba PRN Reason: Wheezing Benzonatate [Tessalon Perles] 100 mg PO Q8HR PRN #30 capsule PRN Reason: Cough Cetirizine HCl [Zyrtec 10mg tab] 10 mg PO QDAY #30 tab Referrals: [facility] [Provider Group] - 7-10 days Forms: Work/School Release Form(ED)
--- NOTE | 2021-12-27 02:57 | XRay Report ---
CHEST 1 VIEW 12/27/2021 2:40 AM INDICATION / CLINICAL INFORMATION: cough wheezing fever. COMPARISON: 08/15/2021 FINDINGS: SUPPORT DEVICES: None. HEART / MEDIASTINUM: No significant abnormality. LUNGS / PLEURA: No significant pulmonary or pleural abnormality. No pneumothorax. ADDITIONAL FINDINGS: No significant additional findings. IMPRESSION: 1. No acute findings. Signer Name: Royce oGmez MD Signed: 12/27/2021 2:52 AM Workstation Name: [email or web address]
[2021-12-27] MEDS ORDERED: SODIUM CHLORIDE 0.9% 1000 ML 1,000 ML IV ONE (04:31)
[2021-12-27] MEDS ORDERED: EPINEPHrine/PF 1 MG/1 ML INJ SUB-Q ONE (04:31)
[2021-12-27] MEDS ORDERED: MAGNESIUM SULFATE 2 GM/50 ML BAG IV ONE (04:31)
[2021-12-27] MEDS ORDERED: METOCLOPRAMIDE 10 MG/2 ML INJ IV ONE (04:47)
[2021-12-27 04:48] LABS: Basophils % (Auto) 0.2 % (0.0-1.8); Eosinophils # (Auto) 0.3 K/mm3 (0.0-0.4); Eosinophils % (Auto) 2.1 % (0.0-4.3); Hematocrit 44.4 % (35.5-45.6); Lymphocytes # (Auto) 1.4 K/mm3 (1.2-5.4); Lymphocytes % (Auto) 9.8 % (13.4-35.0); Mean Corpuscular HGB Conc 34 % (32-34); Mean Corpuscular Volume 89 fl (84-94); Monocytes # (Auto) 1.5 K/mm3 (0.0-0.8); Monocytes % (Auto) 10.4 % (0.0-7.3); Platelet Count 240 K/mm3 (140-440); Red Blood Count 4.98 M/mm3 (3.65-5.03)
[2021-12-27 04:58] LABS: INR 0.92 (0.87-1.13)
[2021-12-27 05:08] LABS: Blood Urea Nitrogen 7 mg/dL (9-20); Calcium 9.5 mg/dL (8.4-10.2); Hemolysis Index 5
[2021-12-27 05:22] LABS: BUN/Creatinine Ratio 14
[2021-12-27 06:38] VITALS: BP 112/70
== END 2021-12-27 06:38 | disposition home or self-care (01) ==
LOC: ED 23:48
DX: J20.9 Acute bronchitis, unspecified (principal); J45.909 Unspecified asthma, uncomplicated; Z91.013 Allergy to seafood; Z91.010 Allergy to peanuts
CPT/HCPCS: 36415; 71045; 80048; 82550; 83735; 85025; 85610; 94640; 94644; 96365; 96372; 96375; 99285; J0171; J2765; J3475; J7030; 99284; Q0162

== ENCOUNTER 2022-02-08 01:20 | Emergency (ER) | payer MEDICAID ==
[2022-02-08] MEDS ORDERED: dexAMETHasone 4 MG/ML VIAL IM ONE (08:05)
[2022-02-08] MEDS ORDERED: IPRATROPIUM/ALBUTEROL SULFATE 3 ML AMPUL.NEB IH ONE (08:05)
[2022-02-08] MEDS ORDERED: ALBUTEROL 2.5 MG/3 ML NEBU IH ONE (08:26)
--- NOTE | 2022-02-08 08:31 | Emergency Department Report ---
ED Asthma HPI - General Chief Complaint: Adult Asthma Stated Complaint: ASTHMA Time Seen by Provider: 02/08/22 08:04 Source: patient, EMS Mode of arrival: Ambulatory Limitations: No Limitations - History of Present Illness Initial Comments: 27-year-old male that is known to me comes in with shortness of breath wheezing and respiratory distress. Patient has a history of asthma and has history of noncompliant with medications. Patient states that he does not have an inhaler as it was cost him $300. Patient denies any fever no chills no karen sea no vomiting. He states that he is not able to breathe. MD Complaint: "asthma attack", shortness of breath, wheezing Onset/Timin -: days(s) Asthma History: history of prior ED visit Severity: severe, similar to prior Context: ran out of meds, medication non-compliance Associated Symptoms: productive cough - Related Data Current Asthma Therapy: none Previous Rx's Medication Instructions Recorded Last Taken Type ALBUTEROL NEB's [Proventil 0.083% 2.5 mg IH PRN PRN #1 pack 08/30/17 Unknown Rx NEBS] ALBUTEROL NEB's [Proventil 0.083% 2.5 mg IH PRN PRN 30 Days neb 10/08/17 Unknown Rx NEBS] Ibuprofen [Motrin 800 MG tab] 800 mg PO Q8HR PRN #20 tablet 11/24/17 Unknown Rx Prednisone [predniSONE 5 mg (6-Day 5 mg PO .TAPER #1 tab.ds.pk 01/06/18 Unknown Rx Pack, 21 Tabs)] Ibuprofen [Motrin 800 MG tab] 800 mg PO Q8HR PRN #15 tablet 04/28/18 Unknown Rx Albuterol Sulfate [Ventolin HFA] 2 puff IH Q4H PRN #1 hfa.aer.ad 08/17/18 Unknown Rx Albuterol Mdi (or & Nicu Only) 2 puff IH QID PRN #1 device 09/05/18 Unknown Rx [ProAir HFA Inhaler] ALBUTEROL Inhaler(NF) [VENTOLIN 2 puff IH Q4HR PRN #1 inha 09/12/18 Unknown Rx Inhaler(NF)] predniSONE [Deltasone] 50 mg PO QDAY #5 tab 09/12/18 Unknown Rx ALBUTEROL NEB's [Proventil 0.083% 2.5 mg IH TID PRN #1 box 06/24/19 Unknown Rx NEBS] Hydrocortisone [Hydrocortisone 1 applicatio TP BID #1 oint...g. 06/24/19 Unknown Rx 2.5% OINT] Triamcinolone Acetonide 1 applic TP BID PRN #45 oint...g. 07/04/19 Unknown Rx [Triamcinolone Acetonide Oint 0.5%] predniSONE 10 mg PO QDAY #5 tab 07/04/19 Unknown Rx Albuterol Mdi (or & Nicu Only) 2 puff IH QID PRN #1 inhalation 09/25/19 Unknown Rx [ProAir HFA Inhaler] Albuterol Mdi (or & Nicu Only) 2 puff IH QID PRN #1 inhalation 10/02/19 Unknown Rx [ProAir HFA Inhaler] Azithromycin [Zithromax Z-CELIA] 250 mg PO DAILY #6 tablet 10/02/19 Unknown Rx predniSONE [Deltasone] 3 tab PO QDAY 5 Days #15 tab 10/02/19 Unknown Rx Albuterol Mdi (or & Nicu Only) 2 puff IH QID PRN #8.5 gram 10/07/19 Unknown Rx [ProAir HFA Inhaler] levoFLOXacin [Levaquin TAB] 750 mg PO QDAY #7 tablet 10/07/19 Unknown Rx Triamcinolone Acetonide 1 applic TP BID #1 tube 06/03/20 Unknown Rx [Triamcinolone Acetonide Oint 0.5%] cephALEXin [Keflex] 500 mg PO Q6HR #40 capsule 06/03/20 Unknown Rx diphenhydrAMINE [Benadryl CAP] 25 mg PO Q6HR PRN #40 capsule 06/03/20 Unknown Rx predniSONE [Deltasone] 40 mg PO QDAY #14 tab 06/03/20 Unknown Rx Albuterol Mdi (or & Nicu Only) 2 puff IH QID PRN #1 inhalation 07/18/20 Unknown Rx [ProAir HFA Inhaler] predniSONE [Deltasone] 20 mg PO QDAY #5 tab 07/18/20 Unknown Rx Ibuprofen [Motrin 600 MG tab] 600 mg PO Q8H PRN #20 tablet 07/30/20 Unknown Rx Albuterol Mdi (or & Nicu Only) 2 puff IH QID PRN #8.5 gram 06/29/21 Unknown Rx [ProAir HFA Inhaler] Naproxen 500 mg PO Q12H PRN #12 tablet 07/19/21 Unknown Rx Albuterol Mdi (or & Nicu Only) 2 puff IH QID PRN #1 inhalation 07/31/21 Unknown Rx [ProAir HFA Inhaler] Albuterol Mdi (or & Nicu Only) 2 puff IH QID PRN #1 pump 08/16/21 Unknown Rx [ProAir HFA Inhaler] Benzonatate [Tessalon Perles] 100 mg PO Q8HR #30 capsule 08/16/21 Unknown Rx predniSONE [Deltasone] 40 mg PO QDAY 5 Days #10 tab 08/16/21 Unknown Rx Ondansetron [Zofran Odt] 4 mg PO Q8HR PRN #12 tab.rapdis 09/26/21 Unknown Rx Albuterol Sulfate [Albuterol 0.63% 0.63 mg IH Q4HR PRN #2 ml 12/27/21 Unknown Rx NEBS] Albuterol Sulfate [Proair 90 mcg IH Q4HR PRN #2 aer.pow.ba 12/27/21 Unknown Rx Respiclick] Benzonatate [Tessalon Perles] 100 mg PO Q8HR PRN #30 capsule 12/27/21 Unknown Rx Cetirizine HCl [Zyrtec 10mg tab] 10 mg PO QDAY #30 tab 12/27/21 Unknown Rx Ondansetron [Zofran Odt] 4 mg PO Q8HR PRN #20 tab.rapdis 12/27/21 Unknown Rx predniSONE [Deltasone] 40 mg PO QDAY #8 tab 12/27/21 Unknown Rx Albuterol Sulfate [Proventil Hfa] 1 - 2 puff IH Q6H PRN #1 hfa.aer.ad 02/08/22 Unknown Rx Fluticasone/Salmeterol [Advair 1 puff IH BID #1 02/08/22 Unknown Rx Diskus 250-50 mcg] Fluticasone/Salmeterol [Advair 1 puff IH BID #1 disk.w.dev 02/08/22 Unknown Rx Diskus 250-50 mcg] methylPREDNISolone [Medrol 4MG 4 mg PO DAILY 6 Days #21 tab 02/08/22 Unknown Rx DOSEPAK (21 tabs)] Allergies Allergy/AdvReac Type Severity Reaction Status Date / Time grape Allergy Rash Verified 09/26/21 12:08 shrimp Allergy Intermediate Rash Uncoded 09/26/21 12:08 pet dander Allergy Mild Rash Uncoded 09/26/21 12:08 pollen Allergy Mild Unknown Uncoded 09/26/21 12:08 ED Review of Systems ROS: Stated complaint: ASTHMA Other details as noted in HPI Comment: All other systems reviewed and negative Respiratory: cough, orthopnea, shortness of breath, SOB with exertion, SOB at rest ED Past Medical Hx - Past Medical History Hx Hypertension: No Hx CVA: No Hx Psychiatric Treatment: (Pt denies - no EMR in ED) Hx Asthma: Yes Hx Tuberculosis: Yes Additional medical history: eczema - Social History Smoking Status: Never Smoker Substance Use Type: None - Medications Home Medications: Home Medications Medication Instructions Recorded Confirmed Last Taken Type ALBUTEROL NEB's [Proventil 0.083% 2.5 mg IH PRN PRN #1 pack 08/30/17 09/26/21 Unknown Rx NEBS] ALBUTEROL NEB's [Proventil 0.083% 2.5 mg IH PRN PRN 30 Days neb 10/08/17 09/26/21 Unknown Rx NEBS] Ibuprofen [Motrin 800 MG tab] 800 mg PO Q8HR PRN #20 tablet 11/24/17 09/26/21 Unknown Rx Prednisone [predniSONE 5 mg (6-Day 5 mg PO .TAPER #1 tab.ds.pk 01/06/18 09/26/21 Unknown Rx Pack, 21 Tabs)] Ibuprofen [Motrin 800 MG tab] 800 mg PO Q8HR PRN #15 tablet 04/28/18 09/26/21 Unknown Rx Albuterol Sulfate [Ventolin HFA] 2 puff IH Q4H PRN #1 hfa.aer.ad 08/17/18 Unknown Rx Albuterol Mdi (or & Nicu Only) 2 puff IH QID PRN #1 device 09/05/18 09/26/21 Unknown Rx [ProAir HFA Inhaler] ALBUTEROL Inhaler(NF) [VENTOLIN 2 puff IH Q4HR PRN #1 inha 09/12/18 09/26/21 Unknown Rx Inhaler(NF)] predniSONE [Deltasone] 50 mg PO QDAY #5 tab 09/12/18 09/26/21 Unknown Rx ALBUTEROL NEB's [Proventil 0.083% 2.5 mg IH TID PRN #1 box 06/24/19 09/26/21 Un known Rx NEBS] Hydrocortisone [Hydrocortisone 1 applicatio TP BID #1 oint...g. 06/24/19 09/26/21 Unknown Rx 2.5% OINT] Triamcinolone Acetonide 1 applic TP BID PRN #45 oint...g. 07/04/19 09/26/21 Unknown Rx [Triamcinolone Acetonide Oint 0.5%] predniSONE 10 mg PO QDAY #5 tab 07/04/19 09/26/21 Unknown Rx Albuterol Mdi (or & Nicu Only) 2 puff IH QID PRN #1 inhalation 09/25/19 09/26/21 Unknown Rx [ProAir HFA Inhaler] Albuterol Mdi (or & Nicu Only) 2 puff IH QID PRN #1 inhalation 10/02/19 09/26/21 Unknown Rx [ProAir HFA Inhaler] Azithromycin [Zithromax Z-CELIA] 250 mg PO DAILY #6 tablet 10/02/19 09/26/21 Unknown Rx predniSONE [Deltasone] 3 tab PO QDAY 5 Days #15 tab 10/02/19 09/26/21 Unknown Rx Albuterol Mdi (or & Nicu Only) 2 puff IH QID PRN #8.5 gram 10/07/19 09/26/21 Unknown Rx [ProAir HFA Inhaler] levoFLOXacin [Levaquin TAB] 750 mg PO QDAY #7 tablet 10/07/19 09/26/21 Unknown Rx Triamcinolone Acetonide 1 applic TP BID #1 tube 06/03/20 09/26/21 Unknown Rx [Triamcinolone Acetonide Oint 0.5%] cephALEXin [Keflex] 500 mg PO Q6HR #40 capsule 06/03/20 09/26/21 Unknown Rx diphenhydrAMINE [Benadryl CAP] 25 mg PO Q6HR PRN #40 capsule 06/03/20 09/26/21 Unknown Rx predniSONE [Deltasone] 40 mg PO QDAY #14 tab 06/03/20 09/26/21 Unknown Rx Albuterol Mdi (or & Nicu Only) 2 puff IH QID PRN #1 inhalation 07/18/20 09/26/21 Unknown Rx [ProAir HFA Inhaler] predniSONE [Deltasone] 20 mg PO QDAY #5 tab 07/18/20 09/26/21 Unknown Rx Ibuprofen [Motrin 600 MG tab] 600 mg PO Q8H PRN #20 tablet 07/30/20 09/26/21 Unknown Rx Albuterol Mdi (or & Nicu Only) 2 puff IH QID PRN #8.5 gram 06/29/21 09/26/21 Unknown Rx [ProAir HFA Inhaler] Naproxen 500 mg PO Q12H PRN #12 tablet 07/19/21 09/26/21 Unknown Rx Albuterol Mdi (or & Nicu Only) 2 puff IH QID PRN #1 inhalation 07/31/21 09/26/21 Unknown Rx [ProAir HFA Inhaler] Albuterol Mdi (or & Nicu Only) 2 puff IH QID PRN #1 pump 08/16/21 09/26/21 Unknown Rx [ProAir HFA Inhaler] Benzonatate [Tessalon Perles] 100 mg PO Q8HR #30 capsule 08/16/21 09/26/21 Unknown Rx predniSONE [Deltasone] 40 mg PO QDAY 5 Days #10 tab 08/16/21 09/26/21 Unknown Rx Ondansetron [Zofran Odt] 4 mg PO Q8HR PRN #12 tab.rapdis 09/26/21 Unknown Rx Albuterol Sulfate [Albuterol 0.63% 0.63 mg IH Q4HR PRN #2 ml 12/27/21 Unknown Rx NEBS] Albuterol Sulfate [Proair 90 mcg IH Q4HR PRN #2 aer.pow.ba 12/27/21 Unknown Rx Respiclick] Benzonatate [Tessalon Perles] 100 mg PO Q8HR PRN #30 capsule 12/27/21 Unknown Rx Cetirizine HCl [Zyrtec 10mg tab] 10 mg PO QDAY #30 tab 12/27/21 Unknown Rx Ondansetron [Zofran Odt] 4 mg PO Q8HR PRN #20 tab.rapdis 12/27/21 Unknown Rx predniSONE [Deltasone] 40 mg PO QDAY #8 tab 12/27/21 Unknown Rx Albuterol Sulfate [Proventil Hfa] 1 - 2 puff IH Q6H PRN #1 hfa.aer.ad 02/08/22 Unknown Rx Fluticasone/Salmeterol [Advair 1 puff IH BID #1 02/08/22 Unknown Rx Diskus 250-50 mcg] Fluticasone/Salmeterol [Advair 1 puff IH BID #1 disk.w.dev 02/08/22 Unknown Rx Diskus 250-50 mcg] methylPREDNISolone [Medrol 4MG 4 mg PO DAILY 6 Days #21 tab 02/08/22 Unknown Rx DOSEPAK (21 tabs)] ED Physical Exam - General Limitations: No Limitations General appearance: alert, in distress - Head Head exam: Present: atraumatic, normocephalic - Eye Eye exam: Present: normal appearance - ENT ENT exam: Present: mucous membranes moist - Neck Neck exam: Present: normal inspection, full ROM - Respiratory Respiratory exam: Present: respiratory distress, wheezes, rhonchi, prolonged expiratory - Cardiovascular Cardiovascular Exam: Present: regular rate - GI/Abdominal GI/Abdominal exam: Present: soft - Extremities Exam Extremities exam: Present: normal inspection, full ROM - Back Exam Back exam: Present: normal inspection, full ROM - Neurological Exam Neurological exam: Present: alert, oriented X3, CN II-XII intact, normal gait - Psychiatric Psychiatric exam: Present: normal affect, normal mood - Skin Skin exam: Present: warm, dry, intact, normal color. Absent: rash ED Course Vital Signs 02/08/22 02/08/22 02/08/22 01:33 09:17 12:29 Temperature 98.6 F 98.9 F Pulse Rate 78 81 Pulse Rate [ 78 Bilateral] Pulse Rate [ 80 Throughout] Respiratory 16 18 Rate Respiratory 22 Rate [Bilateral ] Respiratory 22 Rate [ Throughout] Blood Pressure 120/70 131/85 [Right] O2 Sat by Pulse 97 97 Oximetry 02/08/22 12:32 Temperature Pulse Rate Pulse Rate [ Bilateral] Pulse Rate [ Throughout] Respiratory Rate Respiratory Rate [Bilateral ] Respiratory Rate [ Throughout] Blood Pressure [Right] O2 Sat by Pulse 99 Oximetry - Reevaluation(s) Reevaluation #1: 02/08/22 11:12 Patient was evaluated again by this provider. He was still very rhonchorous reports only minimal improvement. At that time I went ahead and ordered magnesium sulfate 2 g IV. Reevaluation #2: 02/08/22 13:13 Patient is completed his magnesium sulfate IV therapy. Patient reports he feels much better. Lung exam has improved there is no longer any rhonchus no wheezing patient is breathing effortless. ED Medical Decision Making - Medical Decision Making 27-year-old male that is known to me comes in with shortness of breath wheezing and respiratory distress. Patient has a history of asthma and has history of noncompliant with medications. Patient states that he does not have an inhaler as it was cost him $300. Patient denies any fever no chills no nausea no vomiting. He states that he is not able to breathe. Initial orders Dex 8 mg IM, DuoNeb. Reevaluation with respiratory therapist recommendation albuterol 10 mg continuous. Patient's had albuterol continuous neb magnesium sulfate 2 g IV. Patient status has improved to stable. Will discharge patient on Medrol Dosepak and a Proventil inhaler. Patient be referred to her primary care provider and a transportation design engineer. Critical care attestation.: If time is entered above; I have spent that time in minutes in the direct care of this critically ill patient, excluding procedure time. ED Disposition Clinical Impression: Asthma attack Disposition: 01 HOME / SELF CARE / HOMELESS Is pt being admited?: No Does the pt Need Aspirin: No Condition: Stable Instructions: Asthma, Adult, [id number] Additional Instructions: Please use inhaler as prescribed. Complete your medrol Dosepak as prescribed. Is very important you follow-up with a transportation design engineer and a primary care provider to prevent increased risk of having asthma attacks. Prescriptions: Fluticasone/Salmeterol [Advair Diskus 250-50 mcg] 1 puff IH BID #1 Fluticasone/Salmeterol [Advair Diskus 250-50 mcg] 1 puff IH BID #1 disk.w.dev methylPREDNISolone [Medrol 4MG DOSEPAK (21 tabs)] 4 mg PO DAILY 6 Days #21 tab Albuterol Sulfate [Proventil Hfa] 1 - 2 puff IH Q6H PRN #1 hfa.aer.ad PRN Reason: Dyspnea Referrals: SYBIL PARSON MD [Primary Care Provider] - 3-5 Days NIKOS MURRAY MD [Staff Physician] - 3-5 Days Time of Disposition: 13:19
[2022-02-08] MEDS ORDERED: MAGNESIUM SULFATE 2 GM/50 ML BAG IV ONE (11:12)
[2022-02-08 14:01] VITALS: BP 124/78
== END 2022-02-08 14:00 | disposition home or self-care (01) ==
LOC: ED 01:20
DX: J45.909 Unspecified asthma, uncomplicated (principal); Z91.013 Allergy to seafood; Z91.010 Allergy to peanuts
CPT/HCPCS: 94640; 94644; 96365; 96366; 96372; 99284; J1100; J3475; 99283

== ENCOUNTER 2022-02-21 18:07 | Emergency (ER) | payer MEDICAID ==
[2022-02-21] MEDS ORDERED: MAGNESIUM SULFATE 2 GM/50 ML BAG IV ONE (18:16)
[2022-02-21] MEDS ORDERED: ALBUTEROL 2.5 MG/3 ML NEBU IH ONE (18:16)
[2022-02-21] MEDS ORDERED: methylPREDNISolone Sod Succinate 125 MG/2 ML INJ IV ONE (18:16)
[2022-02-21] MEDS ORDERED: IPRATROPIUM 0.02% NEBU 2.5 ML IH ONE (18:16)
--- NOTE | 2022-02-21 19:18 | Emergency Department Report ---
ED Asthma HPI - General Chief Complaint: Adult Asthma Stated Complaint: ASTHMA ATTACK Time Seen by Provider: 02/21/22 18:15 Source: patient, old records reviewed Mode of arrival: Ambulatory Limitations: No Limitations - History of Present Illness Initial Comments: 27-year-old male with a past medical history of asthma without previous intubations presents to the hospital with wheezing and shortness of breath. Patient states symptoms started today. He has been unable to afford his inhaler despite being provided a prescription. He is diaphoretic with, tachypnea, tachycardia, with respiratory distress in triage during my evaluation. Stat labs, IV access, and medications ordered. As per previous medical record review patient was seen here on February 08 with similar symptoms and prescribed multiple medications including inhaler which she was unable to fill due to cost - Related Data Previous Rx's Medication Instructions Recorded Last Taken Type ALBUTEROL NEB's [Proventil 0.083% 2.5 mg IH PRN PRN #1 pack 08/30/17 Unknown Rx NEBS] ALBUTEROL NEB's [Proventil 0.083% 2.5 mg IH PRN PRN 30 Days neb 10/08/17 Unknown Rx NEBS] Ibuprofen [Motrin 800 MG tab] 800 mg PO Q8HR PRN #20 tablet 11/24/17 Unknown Rx Prednisone [predniSONE 5 mg (6-Day 5 mg PO .TAPER #1 tab.ds.pk 01/06/18 Unknown Rx Pack, 21 Tabs)] Ibuprofen [Motrin 800 MG tab] 800 mg PO Q8HR PRN #15 tablet 04/28/18 Unknown Rx Albuterol Sulfate [Ventolin HFA] 2 puff IH Q4H PRN #1 hfa.aer.ad 08/17/18 Unknown Rx ALBUTEROL Inhaler(NF) [VENTOLIN 2 puff IH Q4HR PRN #1 inha 09/12/18 Unknown Rx Inhaler(NF)] predniSONE [Deltasone] 50 mg PO QDAY #5 tab 09/12/18 Unknown Rx ALBUTEROL NEB's [Proventil 0.083% 2.5 mg IH TID PRN #1 box 06/24/19 Unknown Rx NEBS] Hydrocortisone [Hydrocortisone 1 applicatio TP BID #1 oint...g. 06/24/19 Unknown Rx 2.5% OINT] Triamcinolone Acetonide 1 applic TP BID PRN #45 oint...g. 07/04/19 Unknown Rx [Triamcinolone Acetonide Oint 0.5%] predniSONE 10 mg PO QDAY #5 tab 07/04/19 Unknown Rx Albuterol Mdi (or & Nicu Only) 2 puff IH QID PRN #1 inhalation 09/25/19 Unknown Rx [ProAir HFA Inhaler] Albuterol Mdi (or & Nicu Only) 2 puff IH QID PRN #1 inhalation 10/02/19 Unknown Rx [ProAir HFA Inhaler] Azithromycin [Zithromax Z-CELIA] 250 mg PO DAILY #6 tablet 10/02/19 Unknown Rx predniSONE [Deltasone] 3 tab PO QDAY 5 Days #15 tab 10/02/19 Unknown Rx Albuterol Mdi (or & Nicu Only) 2 puff IH QID PRN #8.5 gram 10/07/19 Unknown Rx [ProAir HFA Inhaler] levoFLOXacin [Levaquin TAB] 750 mg PO QDAY #7 tablet 10/07/19 Unknown Rx Triamcinolone Acetonide 1 applic TP BID #1 tube 06/03/20 Unknown Rx [Triamcinolone Acetonide Oint 0.5%] cephALEXin [Keflex] 500 mg PO Q6HR #40 capsule 06/03/20 Unknown Rx diphenhydrAMINE [Benadryl CAP] 25 mg PO Q6HR PRN #40 capsule 06/03/20 Unknown Rx predniSONE [Deltasone] 40 mg PO QDAY #14 tab 06/03/20 Unknown Rx Albuterol Mdi (or & Nicu Only) 2 puff IH QID PRN #1 inhalation 07/18/20 Unknown Rx [ProAir HFA Inhaler] predniSONE [Deltasone] 20 mg PO QDAY #5 tab 07/18/20 Unknown Rx Ibuprofen [Motrin 600 MG tab] 600 mg PO Q8H PRN #20 tablet 07/30/20 Unknown Rx Albuterol Mdi (or & Nicu Only) 2 puff IH QID PRN #8.5 gram 06/29/21 Unknown Rx [ProAir HFA Inhaler] Naproxen 500 mg PO Q12H PRN #12 tablet 07/19/21 Unknown Rx Albuterol Mdi (or & Nicu Only) 2 puff IH QID PRN #1 inhalation 07/31/21 Unknown Rx [ProAir HFA Inhaler] Albuterol Mdi (or & Nicu Only) 2 puff IH QID PRN #1 pump 08/16/21 Unknown Rx [ProAir HFA Inhaler] Benzonatate [Tessalon Perles] 100 mg PO Q8HR #30 capsule 08/16/21 Unknown Rx Ondansetron [Zofran Odt] 4 mg PO Q8HR PRN #12 tab.rapdis 09/26/21 Unknown Rx Albuterol Sulfate [Albuterol 0.63% 0.63 mg IH Q4HR PRN #2 ml 12/27/21 Unknown Rx NEBS] Albuterol Sulfate [Proair 90 mcg IH Q4HR PRN #2 aer.pow.ba 12/27/21 Unknown Rx Respiclick] Benzonatate [Tessalon Perles] 100 mg PO Q8HR PRN #30 capsule 12/27/21 Unknown Rx Cetirizine HCl [Zyrtec 10mg tab] 10 mg PO QDAY #30 tab 12/27/21 Unknown Rx Ondansetron [Zofran Odt] 4 mg PO Q8HR PRN #20 tab.rapdis 12/27/21 Unknown Rx predniSONE [Deltasone] 40 mg PO QDAY #8 tab 12/27/21 Unknown Rx Albuterol Sulfate [Proventil Hfa] 1 - 2 puff IH Q6H PRN #1 hfa.aer.ad 02/08/22 Unknown Rx Fluticasone/Salmeterol [Advair 1 puff IH BID #1 02/08/22 Unknown Rx Diskus 250-50 mcg] Fluticasone/Salmeterol [Advair 1 puff IH BID #1 disk.w.dev 02/08/22 Unknown Rx Diskus 250-50 mcg] methylPREDNISolone [Medrol 4MG 4 mg PO DAILY 6 Days #21 tab 02/08/22 Unknown Rx DOSEPAK (21 tabs)] Albuterol Mdi (or & Nicu Only) 2 puff IH QID PRN #1 device 02/21/22 Unknown Rx [ProAir HFA Inhaler] predniSONE [Deltasone] 40 mg PO QDAY 5 Days #10 tab 02/21/22 Unknown Rx Allergies Allergy/AdvReac Type Severity Reaction Status Date / Time grape Allergy Rash Verified 09/26/21 12:08 shrimp Allergy Intermediate Rash Uncoded 09/26/21 12:08 pet dander Allergy Mild Rash Uncoded 09/26/21 12:08 pollen Allergy Mild Unknown Uncoded 09/26/21 12:08 ED Review of Systems ROS: Stated complaint: ASTHMA ATTACK Other details as noted in HPI Comment: All other systems reviewed and negative ED Past Medical Hx - Past Medical History Previous Medical History?: No Hx Hypertension: No Hx CVA: No Hx Psychiatric Treatment: (Pt denies - no EMR in ED) Hx Asthma: Yes Hx Tuberculosis: Yes Additional medical history: eczema - Surgical History Past Surgical History?: No - Social History Smoking Status: Never Smoker Substance Use Type: None - Medications Home Medications: Home Medications Medication Instructions Recorded Confirmed Last Taken Type ALBUTEROL NEB's [Proventil 0.083% 2.5 mg IH PRN PRN #1 pack 08/30/17 09/26/21 Unknown Rx NEBS] ALBUTEROL NEB's [Proventil 0.083% 2.5 mg IH PRN PRN 30 Days neb 10/08/17 09/26/21 Unknown Rx NEBS] Ibuprofen [Motrin 800 MG tab] 800 mg PO Q8HR PRN #20 tablet 11/24/17 09/26/21 Unknown Rx Prednisone [predniSONE 5 mg (6-Day 5 mg PO .TAPER #1 tab.ds.pk 01/06/18 09/26/21 Unknown Rx Pack, 21 Tabs)] Ibuprofen [Motrin 800 MG tab] 800 mg PO Q8HR PRN #15 tablet 04/28/18 09/26/21 Unknown Rx Albuterol Sulfate [Ventolin HFA] 2 puff IH Q4H PRN #1 hfa.aer.ad 08/17/18 09/26/21 Unknown Rx ALBUTEROL Inhaler(NF) [VENTOLIN 2 puff IH Q4HR PRN #1 inha 09/12/18 09/26/21 Unknown Rx Inhaler(NF)] predniSONE [Deltasone] 50 mg PO QDAY #5 tab 09/12/18 09/26/21 Unknown Rx ALBUTEROL NEB's [Proventil 0.083% 2.5 mg IH TID PRN #1 box 06/24/19 09/26/21 Un known Rx NEBS] Hydrocortisone [Hydrocortisone 1 applicatio TP BID #1 oint...g. 06/24/1912/13 Unknown Rx 2.5% OINT] Triamcinolone Acetonide 1 applic TP BID PRN #45 oint...g. 07/04/19 09/26/21 Unknown Rx [Triamcinolone Acetonide Oint 0.5%] predniSONE 10 mg PO QDAY #5 tab 07/04/19 09/26/21 Unknown Rx Albuterol Mdi (or & Nicu Only) 2 puff IH QID PRN #1 inhalation 09/25/19 09/26/21 Unknown Rx [ProAir HFA Inhaler] Albuterol Mdi (or & Nicu Only) 2 puff IH QID PRN #1 inhalation 10/02/19 09/26/21 Unknown Rx [ProAir HFA Inhaler] Azithromycin [Zithromax Z-CELIA] 250 mg PO DAILY #6 tablet 10/02/19 09/26/21 Unknown Rx predniSONE [Deltasone] 3 tab PO QDAY 5 Days #15 tab 10/02/19 09/26/21 Unknown Rx Albuterol Mdi (or & Nicu Only) 2 puff IH QID PRN #8.5 gram 10/07/19 09/26/21 Unknown Rx [ProAir HFA Inhaler] levoFLOXacin [Levaquin TAB] 750 mg PO QDAY #7 tablet 10/07/19 09/26/21 Unknown Rx Triamcinolone Acetonide 1 applic TP BID #1 tube 06/03/20 09/26/21 Unknown Rx [Triamcinolone Acetonide Oint 0.5%] cephALEXin [Keflex] 500 mg PO Q6HR #40 capsule 06/03/20 09/26/21 Unknown Rx diphenhydrAMINE [Benadryl CAP] 25 mg PO Q6HR PRN #40 capsule 06/03/20 09/26/21 Unknown Rx predniSONE [Deltasone] 40 mg PO QDAY #14 tab 06/03/20 09/26/21 Unknown Rx Albuterol Mdi (or & Nicu Only) 2 puff IH QID PRN #1 inhalation 07/18/20 09/26/21 Unknown Rx [ProAir HFA Inhaler] predniSONE [Deltasone] 20 mg PO QDAY #5 tab 07/18/20 09/26/21 Unknown Rx Ibuprofen [Motrin 600 MG tab] 600 mg PO Q8H PRN #20 tablet 07/30/20 09/26/21 Unknown Rx Albuterol Mdi (or & Nicu Only) 2 puff IH QID PRN #8.5 gram 06/29/21 09/26/21 Unknown Rx [ProAir HFA Inhaler] Naproxen 500 mg PO Q12H PRN #12 tablet 07/19/21 09/26/21 Unknown Rx Albuterol Mdi (or & Nicu Only) 2 puff IH QID PRN #1 inhalation 07/31/21 09/26/21 Unknown Rx [ProAir HFA Inhaler] Albuterol Mdi (or & Nicu Only) 2 puff IH QID PRN #1 pump 08/16/21 09/26/21 Unknown Rx [ProAir HFA Inhaler] Benzonatate [Tessalon Perles] 100 mg PO Q8HR #30 capsule 08/16/21 09/26/21 Unknown Rx Ondansetron [Zofran Odt] 4 mg PO Q8HR PRN #12 tab.rapdis 09/26/21 Unknown Rx Albuterol Sulfate [Albuterol 0.63% 0.63 mg IH Q4HR PRN #2 ml 12/27/21 Unknown Rx NEBS] Albuterol Sulfate [Proair 90 mcg IH Q4HR PRN #2 aer.pow.ba 12/27/21 Unknown Rx Respiclick] Benzonatate [Tessalon Perles] 100 mg PO Q8HR PRN #30 capsule 12/27/21 Unknown Rx Cetirizine HCl [Zyrtec 10mg tab] 10 mg PO QDAY #30 tab 12/27/21 Unknown Rx Ondansetron [Zofran Odt] 4 mg PO Q8HR PRN #20 tab.rapdis 12/27/21 Unknown Rx predniSONE [Deltasone] 40 mg PO QDAY #8 tab 12/27/21 Unknown Rx Albuterol Sulfate [Proventil Hfa] 1 - 2 puff IH Q6H PRN #1 hfa.aer.ad 02/08/22 Unknown Rx Fluticasone/Salmeterol [Advair 1 puff IH BID #1 02/08/22 Unknown Rx Diskus 250-50 mcg] Fluticasone/Salmeterol [Advair 1 puff IH BID #1 disk.w.dev 02/08/22 Unknown Rx Diskus 250-50 mcg] methylPREDNISolone [Medrol 4MG 4 mg PO DAILY 6 Days #21 tab 02/08/22 Unknown Rx DOSEPAK (21 tabs)] Albuterol Mdi (or & Nicu Only) 2 puff IH QID PRN #1 device 02/21/22 Unknown Rx [ProAir HFA Inhaler] predniSONE [Deltasone] 40 mg PO QDAY 5 Days #10 tab 02/21/22 Unknown Rx ED Physical Exam - General Limitations: No Limitations - Other Other exam information: General: Acute respiratory distress Head: Atraumatic Eyes: normal appearance ENT: Moist mucous membranes Neck: Normal appearance, no midline tenderness Chest: Bilateral wheezing, poor air movement, accessory muscle use CV: Tachycardic regular rhythm Abdomen: Soft, normal bowel sounds, nontender, nondistended, no rebound or guarding Back: Normal inspection Extremity: Normal inspection, full range of motion Neuro: Alert O x 3, no facial asymmetry, speech clear, no gross motor sensory deficit Psych: Appropriate behavior Skin: Diaphoretic ED Course Vital Signs 02/21/22 02/21/22 02/21/22 18:12 18:20 20:47 Temperature 98.9 F 99.1 F Pulse Rate 135 H 120 H Pulse Rate [ 138 H Bilateral] Respiratory 30 H 18 Rate Respiratory 24 Rate [Bilateral ] Blood Pressure 150/95 Blood Pressure 124/75 [Left] O2 Sat by Pulse 91 96 Oximetry 02/21/22 23:59 Temperature 98.6 F Pulse Rate 105 H Pulse Rate [ Bilateral] Respiratory 18 Rate Respiratory Rate [Bilateral ] Blood Pressure 127/87 Blood Pressure [Left] O2 Sat by Pulse 96 Oximetry ED Medical Decision Making - Lab Data Result diagrams: 02/21/22 21:18 02/21/22 21:18 Lab Results 02/21/22 02/21/22 02/21/22 Range/Units 21:18 21:18 21:18 WBC 13.1 H (4.5-11.0) K/mm3 RBC 5.55 H (3.65-5.03) M/mm3 Hgb 17.0 H (11.8-15.2) gm/dl Hct 49.3 H (35.5-45.6) % MCV 89 (84-94) fl MCH 31 (28-32) pg MCHC 35 H (32-34) % RDW 13.5 (13.2-15.2) % Plt Count 225 (140-440) K/mm3 Add Manual Diff Complete Total Counted 100 Seg Neutrophils % Lye Treater Seg Neuts % (Manual) 97.0 H (40.0-70.0) % Band Neutrophils % 0 % Lymphocytes % (Manual) 1.0 L (13.4-35.0) % Reactive Lymphs % (Man) 0 % Monocytes % (Manual) 2.0 (0.0-7.3) % Eosinophils % (Manual) 0 (0.0-4.3) % Basophils % (Manual) 0 (0.0-1.8) % Metamyelocytes % 0 % Myelocytes % 0 % Promyelocytes % 0 % Blast Cells % 0 % Nucleated RBC % Not Reportable Seg Neutrophils # Man 12.7 H (1.8-7.7) K/mm3 Band Neutrophils # 0.0 K/mm3 Lymphocytes # (Manual) 0.1 L (1.2-5.4) K/mm3 Abs React Lymphs (Man) 0.0 K/mm3 Monocytes # (Manual) 0.3 (0.0-0.8) K/mm3 Eosinophils # (Manual) 0.0 (0.0-0.4) K/mm3 Basophils # (Manual) 0.0 (0.0-0.1) K/mm3 Metamyelocytes # 0.0 K/mm3 Myelocytes # 0.0 K/mm3 Promyelocytes # 0.0 K/mm3 Blast Cells # 0.0 K/mm3 WBC Morphology Not Reportable Hypersegmented Neuts Not Reportable Hyposegmented Neuts Not Reportable Hypogranular Neuts Not Reportable Smudge Cells Not Reportable Toxic Granulation Not Reportable Toxic Vacuolation Not Reportable Dohle Bodies Not Reportable Pelger-Huet Anomaly Not Reportable Nichole Rods Not Reportable Platelet Estimate Consistent w auto Clumped Platelets Not Reportable Plt Clumps, EDTA Not Reportable Large Platelets Not Reportable Giant Platelets Not Reportable Platelet Satelliting Not Reportable Plt Morphology Comment Not Reportable RBC Morphology Normal Dimorphic RBCs Not Reportable Polychromasia Not Reportable Hypochromasia Not Reportable Poikilocytosis Not Reportable Anisocytosis Not Reportable Microcytosis Not Reportable Macrocytosis Not Reportable Spherocytes Not Reportable Pappenheimer Bodies Not Reportable Sickle Cells Not Reportable Target Cells Not Reportable Tear Drop Cells Not Reportable Ovalocytes Not Reportable Helmet Cells Not Reportable Kingsley-Kathryn Bodies Not Reportable Ferris Rings Not Reportable Cabot Cells Not Reportable Bite Cells Not Reportable Crenated Cell Not Reportable Elliptocytes Not Reportable Acanthocytes (Spur) Not Reportable Rouleaux Not Reportable Hemoglobin C Crystals Not Reportable Schistocytes Not Reportable Malaria parasites Not Reportable Mike Bodies Not Reportable Hem Pathologist Commnt No PT 12.9 (12.2-14.9) Sec. INR 0.88 (0.87-1.13) Sodium 136 L (137-145) mmol/L Potassium 4.3 (3.6-5.0) mmol/L Chloride 99.5 (98-107) mmol/L Carbon Dioxide 23 (22-30) mmol/L Anion Gap 18 mmol/L BUN 15 (9-20) mg/dL Creatinine 0.7 L (0.8-1.3) mg/dL Estimated GFR > 60 ml/min BUN/Creatinine Ratio 21 % Glucose 128 H (75-100) mg/dL Calcium 9.5 (8.4-10.2) mg/dL Total Bilirubin 0.30 (0.1-1.2) mg/dL AST 15 (5-40) units/L ALT 14 (7-56) units/L Alkaline Phosphatase 78 (35-129) units/L Total Protein 7.9 (6.3-8.2) g/dL Albumin 4.8 (3.9-5) g/dL Albumin/Globulin Ratio 1.5 % - Radiology Data Radiology results: report reviewed - Medical Decision Making Patient presents to the hospital acute respiratory distress secondary to asthma exacerbation and medication noncompliance due to inability to afford inhalers. Patient was treated emergently with bronchodilators, magnesium, and Solu-Medrol. Patient did develop some nausea vomiting in the ED without any abdominal tenderness. Repeat vital signs reveal persistent tachycardia although patient wheezing is greatly improved. Hypoxia and tachypnea have improved. Patient will need to be signed out to oncoming provider Dr. Elbasha to reassess. Due to persistent tachycardia I did order EKG, CBC, CMP. IV Zofran ordered for nausea and vomiting chart reviewed 02/22 at 12:30p cxr negative labs with mild leukocytosis hr 105 pt was d/abel home as per RN note Critical Care Time: No Critical care attestation.: If time is entered above; I have spent that time in minutes in the direct care of this critically ill patient, excluding procedure time. ED Disposition Clinical Impression: Acute asthma exacerbation, Noncompliance with medication regimen Disposition: HOME / SELF CARE / HOMELESS Is pt being admited?: No Does the pt Need Aspirin: No Condition: Stable Instructions: Asthma, Adult Additional Instructions: Take the medication as prescribed. Follow-up with your doctor or doctor/clinic provided. Return if symptoms worsen as indicated by your discharge in structions. Prescriptions: predniSONE [Deltasone] 40 mg PO QDAY 5 Days #10 tab Albuterol Mdi (or & Nicu Only) [ProAir HFA Inhaler] 2 puff IH QID PRN #1 device PRN Reason: Shortness Of Breath Referrals: [facility] [Provider Group] - 3-5 Days
[2022-02-21] MEDS ORDERED: ONDANSETRON 4 MG/2 ML INJ IV ONE (20:32)
[2022-02-21 21:35] LABS: Hematocrit 49.3 % (35.5-45.6); Mean Corpuscular HGB Conc 35 % (32-34); Mean Corpuscular Volume 89 fl (84-94); Platelet Count 225 K/mm3 (140-440); Red Blood Count 5.55 M/mm3 (3.65-5.03); Red Cell Distribution Width 13.5 % (13.2-15.2)
[2022-02-21 21:42] LABS: INR 0.88 (0.87-1.13)
[2022-02-21 22:02] LABS: Alanine Aminotransferase 14 units/L (7-56); Albumin 4.8 g/dL (3.9-5); Blood Urea Nitrogen 15 mg/dL (9-20); Calcium 9.5 mg/dL (8.4-10.2); Hemolysis Index 19
[2022-02-21 22:03] LABS: BUN/Creatinine Ratio 21
--- NOTE | 2022-02-21 22:37 | XRay Report ---
CHEST 2 VIEWS INDICATION / CLINICAL INFORMATION: sob, wheezing. COMPARISON: None available. FINDINGS: SUPPORT DEVICES: None. HEART / MEDIASTINUM: No significant abnormality. LUNGS / PLEURA: No significant pulmonary or pleural abnormality. No pneumothorax. BONES: No significant osseous abnormality. ADDITIONAL FINDINGS: No significant additional findings. IMPRESSION: 1. No active cardiopulmonary disease. Signer Name: Jayme Garcia II, MD Signed: 02/21/2022 10:32 PM Workstation Name: [id number]
[2022-02-22 02:04] VITALS: BP 127/87
[2022-02-22 02:48] LABS: Basophils % (Manual) 0 % (0.0-1.8); Eosinophils % (Manual) 0 % (0.0-4.3); Platelet Estimate Consistent w Auto; RBC Morphology Normal; Total Cells Counted 100
== END 2022-02-22 00:02 | disposition home or self-care (01) ==
LOC: ED 18:07
DX: J45.901 Unspecified asthma with (acute) exacerbation (principal); Z91.14 Patient's other noncompliance with medication regimen; Z91.018 Allergy to other foods
CPT/HCPCS: 36415; 71046; 80053; 85007; 85025; 85610; 94644; 96365; 96375; 99284; J2930; J3475